=== PATIENT | female | born 2000 | race Caucasian/White ===

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

== ENCOUNTER 2022-03-24 00:30 | Observation (INO) | payer OTHER, SELFPAY ==
[2022-03-24 00:30] VITALS: BMI 35.5
[2022-03-24 01:00] VITALS: BP 141/91; PULSE 107
[2022-03-24 01:13] LABS: Appearance Urine Clear (Clear); Bilirubin Urine Negative (Negative); Blood Urine Negative (Negative); Color Urine Yellow (Yellow); Glucose Urine UA Negative (Negative); Ketones Urine Negative (Negative); Leukocyte Esterase Ur Trace LEU/UL (Negative); Nitrate Urine Negative (Negative); Protein Urine Negative (Negative); Urobilinogen Urine 0.2 mg/dL (<2.0); pH Urine 6.5 (5.0-9.0)
[2022-03-24 01:16] VITALS: BP 138/78; PULSE 109
[2022-03-24 01:28] LABS: Bacteria Urine Trace /hpf; Mucus Urine Rare /lpf; RBC Urine 0-2 /hpf (0-2); Squamous Epithelial Cell Urine Few /hpf (Few); WBC Urine 0-3 /hpf
[2022-03-24 01:30] VITALS: BP 118/74; PULSE 104
[2022-03-24 01:30] LABS: Add Urine Microscopic? YES
[2022-03-24 01:45] VITALS: BP 132/69; PULSE 101
[2022-03-24 02:01] VITALS: BP 131/96; PULSE 109
--- NOTE | 2022-03-27 07:15 | P.PNOB_ITS ---
OB - Triage/Final Diagnosis Visit Information Comments/Additional reasons for admission: I have assessed the risk for this patient, Caro Wilkes, and determined that she would benefit from observation care. Evaluation Laboratory results: Laboratory Tests 03/24/22 01:05 Urine Color Yellow Urine Appearance Clear Urine pH 6.5 Ur Specific [place] 1.020 Urine Protein Negative Urine Glucose (UA) Negative Urine Ketones Negative Ur Blood (Man) Negative Urine Nitrate Negative Urine Bilirubin Negative Urine Urobilinogen 0.2 Leukocyte Esterase Rfl Trace H Urine RBC 0-2 Urine WBC 0-3 Ur Squamous Epith Cells Few Urine Bacteria Trace Urine Mucus Rare Final Diagnosis (1) False labor: Code(s): O47.9 - False labor, unspecified Status: Acute
== END 2022-03-24 02:10 | disposition home or self-care (01) ==
PROVIDERS: Admitting Provider Obstetrics & Gynecology; Visit Provider Obstetrics & Gynecology
DX: O47.03 False labor before 37 completed weeks of gestation, third trimester (principal); Z3A.32 32 weeks gestation of pregnancy
CPT/HCPCS: 81001; G0378; G0379

== ENCOUNTER 2022-04-06 14:21 | Observation (INO) | payer OTHER, SELFPAY ==
[2022-04-06] VITALS (25 sets, daily range): BP systolic 116; BP diastolic 57; PULSE 139–161; TEMP 38.4; O2SAT 94–100; BMI 36.1
--- NOTE | 2022-04-06 15:25 | OBADM ---
This patient, Caro Wilkes, admitted to the OB room Labor/Delivery/Recovery 118 for observation. Patient/family oriented to hospital policies and general routines including ID bracelet, bed and alarms, visiting hours, pain management, procedures, bathroom and other care routines, personal items, smoking policy, room service/diet, and visiting hours. Patient/Family are encouraged to report perceived risks to care and to ask questions if they do not understand what they are told or what they should do.
[2022-04-06] MEDS: ACETAMINOPHEN 325 MG TABLET 650 MG PO (15:30)
--- NOTE | 2022-05-05 21:24 | PM.OBTRLD ---
OB - Triage/Final Diagnosis Visit Information Comments/Additional reasons for admission: I have assessed the risk for this patient, Caro Wilkes, and determined that she would benefit from observation care. Final Diagnosis (1) Fever: Code(s): R50.9 - Fever, unspecified Status: Acute
== END 2022-04-06 16:50 | disposition home or self-care (01) ==
PROVIDERS: Admitting Provider Obstetrics & Gynecology; Visit Provider Obstetrics & Gynecology
DX: O26.899 Other specified pregnancy related conditions, unspecified trimester (principal); R50.9 Fever, unspecified; Z3A.00 Weeks of gestation of pregnancy not specified
CPT/HCPCS: A9270; G0378; G0379

== ENCOUNTER 2022-04-24 11:32 | Outpatient (CLI) | payer OTHER, SELFPAY ==
--- NOTE | ~2022-04-24 | US_ITS ---
EXAMINATION: US OB BPP wo non-stress DATE: 04/24/2022 13:14 INDICATION: Hypertension TECHNIQUE: Real-time pelvic ultrasound was performed. The interpreting radiologist was not present fo r the study. COMPARISON: None. FINDINGS: There is a single living fetus in vertex presentation. The placenta is anterior. heart rate is 132 beats per minute (bpm). Biophysical profile performed by the technologist: breathing (30 sec sustained breathing in 30 minutes): 2 out of 2 movement (3 gross body movements in 30 minutes): 2 out of 2 tone (one episode of mywpecu-uxalbsyei-mcrzopn limb movement): 2 out of 2 Amniotic fluid pocket (2 cm): 2 out of 2 Total score: 8 out of 8 IMPRESSION: 1. Single living fetus in vertex presentation with heart rate of 132 bpm. 2. Biophysical profile 8 out of 8. Reviewed, dictated and finalized at location A. NT SUPPORT ADMINISTRATOR
[2022-04-24 12:07] VITALS: BP 132/80; PULSE 110
[2022-04-24 12:15] VITALS: BP 143/81; PULSE 99
[2022-04-24 12:17] VITALS: BP 132/80; PULSE 110
[2022-04-24 12:17] LABS: Basophils Percent Auto 0.3 % (0.2-1.2); Eosinophils Absolute Auto 0.2 K/mm3 (0-0.3); Hematocrit 32.8 % (37.0-47.0); Immature Granulocyte Absolute 0.08 K/mm3 (0.00-0.031); Immature Granulocyte Percent A 0.8 % (0-0.5); Lymphocytes Absolute Auto 2.04 K/mm3 (0.9-3.2); Lymphocytes Percent Auto 20.2 % (18.3-44.2); Mean Corpuscular HGB Conc 33.5 g/dl (32-36); Mean Corpuscular Hemoglobin 30.1 pg (26-34); Mean Corpuscular Volume 89.9 fl (80-100); Mean Platelet Volume 10.6 fl (7.4-10.4); Monocytes Absolute Auto 0.8 K/mm3 (0.1-0.6); Monocytes Percent Auto 8.1 % (2.6-8.5); Neutrophils Absolute Auto 6.9 K/mm3 (1.3-6.7); Neutrophils Percent Auto 68.6 % (45.5-73.1); Platelet Count Result 244 k/mm3 (150-375); Red Blood Count 3.65 M/mm3 (4.2-5.4); Red Cell Distribution Width 15.4 % (11.5-14.5); White Blood Count 10.1 K/mm3 (4.5-10.0)
[2022-04-24 12:30] VITALS: BP 127/75; PULSE 109
[2022-04-24 12:43] LABS: Alanine Aminotransferase 20 U/L (6-35); Albumin Level 3.7 g/dL (3.5-5.1); Alkaline Phosphatase 90 U/L (38-126); Anion Gap 6 mmol/L (8-16); Aspartate Amino Transferase 20 U/L (14-36); Bilirubin,Total 0.3 mg/dL (0.2-1.3); Blood Urea Nitrogen 6 mg/dL (7-17); Calcium 8.8 mg/dL (8.4-10.2); Carbon Dioxide 22 mmol/L (22-30); Chloride 107 mmol/L (98-107); Estimated Glomerular Filt Rate > 60; Glucose 115 mg/dL (65-110); Potassium 3.8 mmol/L (3.4-5.0); Sodium 135 mmol/L (137-145); Uric Acid 3.7 mg/dL (2.5-7.5)
[2022-04-24 12:53] LABS: Add Urine Microscopic? YES; Appearance Urine Slightly Cloudy (Clear); Bilirubin Urine Negative (Negative); Blood Urine Negative (Negative); Color Urine Light Yellow (Yellow); Glucose Urine UA Negative (Negative); Ketones Urine Negative (Negative); Leukocyte Esterase Ur 1+ LEU/UL (NEGATIVE); Nitrate Urine Negative (Negative); Protein Urine Trace mg/dL (Negative); Urobilinogen Urine 0.2 mg/dL (<2.0)
[2022-04-24 12:56] LABS: Creatinine Urine 94.2 mg/dL
[2022-04-24 13:15] VITALS: BP 127/75; PULSE 101
[2022-04-24 13:15] LABS: Total Protein Urine Random < 5 mg/dL; Ur Ttl Prot Creatinine Ratio < 0.05 mg/mg (0-0.20)
[2022-04-24 13:25] LABS: Bacteria Urine 1+ /hpf; Mucus Urine Rare /lpf; Squamous Epithelial Cell Urine Many /hpf (Few); WBC Urine 0-3 /hpf (0-3)
== END 2022-04-24 13:30 | disposition home or self-care (01) ==
LOC: ANHOBOP 11:37 → ANHOBPP 11:37
PROVIDERS: Visit Provider Obstetrics & Gynecology
DX: O13.9 Gestational [pregnancy-induced] hypertension without significant proteinuria, unspecified trimester (principal); Z3A.00 Weeks of gestation of pregnancy not specified
CPT/HCPCS: 36415; 59025; 76819; 80053; 81001; 82570; 84156; 84550; 85025; 87086; 99199

== ENCOUNTER 2022-04-27 17:42 | Outpatient (RCR) | payer OTHER, SELFPAY ==
[2022-03-30 13:33] VITALS: BP 125/74; PULSE 110
[2022-04-06 15:56] LABS: Influenza A QL RT-PCR Positive (Negative); Influenza B QL RT-PCR Negative (Negative); RSV RNA, RT-PCR Negative (Negative); SARS-CoV-2 RNA PCR Negative
[2022-04-14 17:51] VITALS: BP 130/72; PULSE 102
[2022-04-20 09:19] VITALS: BP 120/69; PULSE 91
== END 2022-05-31 12:48 | disposition home or self-care (01) ==
LOC: ANHOBOP 17:42
PROVIDERS: Visit Provider Advanced Practice Midwife
DX: O14.93 Unspecified pre-eclampsia, third trimester (principal); O26.613 Liver and biliary tract disorders in pregnancy, third trimester; K83.1 Obstruction of bile duct; Z3A.33 33 weeks gestation of pregnancy; Z3A.35 35 weeks gestation of pregnancy; Z3A.36 36 weeks gestation of pregnancy
CPT/HCPCS: 59025; 87637

== ENCOUNTER 2022-04-29 05:16 | Inpatient (IN) | payer OTHER, SELFPAY ==
[2022-04-29] VITALS (194 sets, daily range): BP systolic 65–165; BP diastolic 35–133; PULSE 25–261; RESP 16; TEMP 36.3–37.4; O2SAT 39–100; BMI 35.9
--- OUTSIDE RECORDS SUMMARY | 2022-04-29 05:21 | XMS_ITS ---
Care Plan - [facility] Created on: April 29, 2022 LEEANNE ONOFRE : 2000 Sex: Female Author Name [employer] Export Account Manager Address [address] [place] [address] Phone Organization [facility] Address [address] [place] [address] Phone Care Team Providers Care Chainstitch Pants Outseamer Name Role Phone NORIS LANDERS, DAVID Olmos Unavailable [phone] Primary Care Provider Unavail able
[2022-04-29 06:32] LABS: Basophils Percent Auto 0.4 % (0.2-1.2); Eosinophils Absolute Auto 0.4 K/mm3 (0-0.3); Hematocrit 32.6 % (37.0-47.0); Hemoglobin 10.8 g/dL (12.0-15.0); Immature Granulocyte Absolute 0.07 K/mm3 (0.00-0.031); Immature Granulocyte Percent A 0.7 % (0-0.5); Lymphocytes Absolute Auto 2.85 K/mm3 (0.9-3.2); Lymphocytes Percent Auto 28.9 % (18.3-44.2); Mean Corpuscular HGB Conc 33.1 g/dl (32-36); Mean Corpuscular Hemoglobin 30.1 pg (26-34); Mean Corpuscular Volume 90.8 fl (80-100); Mean Platelet Volume 10.8 fl (7.4-10.4); Monocytes Absolute Auto 0.8 K/mm3 (0.1-0.6); Monocytes Percent Auto 7.9 % (2.6-8.5); Neutrophils Absolute Auto 5.7 K/mm3 (1.3-6.7); Neutrophils Percent Auto 58.1 % (45.5-73.1); Platelet Count Result 207 k/mm3 (150-375); Red Blood Count 3.59 M/mm3 (4.2-5.4); Red Cell Distribution Width 15.6 % (11.5-14.5); White Blood Count 9.9 K/mm3 (4.5-10.0)
[2022-04-29] MEDS: LACTATED RINGERS 1,000 ML 125 ML IV CONT ×3 (06:47→14:29)
[2022-04-29] MEDS: OXYTOCIN 30 UNITS/NS 500 ML 30 UNITS/500 ML BAG IV CONT (06:48)
--- NOTE | 2022-04-29 06:56 | LDADM ---
This patient, Caro Wilkes, was admitted to Labor/Delivery/Recovery 103 on 04/29/22 at 05:16. Plans for labor, pain management and were discussed with patient. Patient/family oriented to hospital policies and general routines including ID bracelet, bed and alarms, visiting hours, pain management, procedures, bathroom and other care routines, personal items, smoking policy, room service/diet and guest tray routines, security routines, and visiting hours. Patient/Family are encouraged to report perceived risks to care and to ask questions if they do not understand what they are told or what they should do. See OBIX for further documentation.
--- NOTE | 2022-04-29 07:28 | WPDOBADMIT ---
Obstetrics - Admit Note Admission Note: record reviewed. No pertinent additions to the history and/or any subsequent changes in the physical findings that are not consistent with the expected course of the were found. IOL, cholestasis, SVE 2/80/-2 AROM minimal amount of clear odorless fluid. anticipate vaginal delivery Additions to the history and/or subsequent changes in the physical findings follow. None.
[2022-04-29 08:06] LABS: Rapid Plasma Reagin Non-Reactive (NonReactive)
[2022-04-29 10:17] LABS: Amphetamine Screen Urine Negative (Negative); Barbiturate Screen Urine Negative (Negative); Benzodiazepines Screen Urine Negative (Negative); Cannabinoid Screen Urine Negative (Negative); Cocaine Screen Urine Negative (Negative); Methadone Screen Urine Negative (Negative); Opiate Screen Urine Negative (Negative); Phencyclidine Screen Urine Negative (Negative)
--- NOTE | 2022-04-29 17:08 | WPDANESEPP ---
Anes - Eval Pre Procedure Procedure: Labor epidural Date/Time: 04/29/22 17:08 Surgeon: Naseem Preop Diagnosis: Abd pain with contractrions Pre Op Diagnosis: IOL Patient Data Age: 22 Gender: F Height: 1.6 m Weight: 92 kg Last Vital Signs Temp 98 F 04/29/22 15:06 Pulse 120 H 04/29/22 17:00 BP 108/75 04/29/22 17:00 Pulse Ox 99 04/29/22 17:08 O2 Del Method Room Air 04/29/22 06:54 Allergies Allergy/AdvReac Type Severity Reaction Status Date / Time No Known Allergies Allergy Verified 04/29/22 07:08 Home Medications Medication Instructions Recorded Confirmed Type aspirin 81 mg tablet,delayed 81 mg PO DAILY 12/22/21 04/29/22 History release (Adult Low Dose Aspirin) vitamin-ferrous fumarate 1 tablet PO DAILY 12/22/21 04/29/22 History 28 mg iron-folic acid 800 mcg tablet ( Vitamins with Minerals) ursodiol 300 mg capsule 300 mg PO DAILY 04/29/22 04/29/22 History Laboratory Tests 04/29/22 04/29/22 04/29/22 05:25 05:25 05:25 WBC 9.9 K/mm3 K/mm3 (4.5-10.0) RBC 3.59 M/mm3 L M/mm3 (4.2-5.4) Hgb 10.8 g/dL L g/dL (12.0-15.0) Hct 32.6 % L % (37.0-47.0) MCV 90.8 fl fl (80-100) MCH 30.1 pg pg (26-34) MCHC 33.1 g/dl g/dl (32-36) RDW 15.6 % H % (11.5-14.5) Plt Count 207 k/mm3 k/mm3 (150-375) MPV 10.8 fl H fl (7.4-10.4) Immature Gran % (Auto) 0.7 % H % (0-0.5) Neut % (Auto) 58.1 % % (45.5-73.1) Lymph % (Auto) 28.9 % % (18.3-44.2) [place] % (Auto) 7.9 % % (2.6-8.5) Eos % (Auto) 4.0 % % (0-4.4) Baso % (Auto) 0.4 % % (0.2-1.2) Lymph # (Auto) 2.85 K/mm3 K/mm3 (0.9-3.2) [place] # (Auto) 0.8 K/mm3 H K/mm3 (0.1-0.6) Eos # (Auto) 0.4 K/mm3 H K/mm3 (0-0.3) Baso # (Auto) 0.0 K/mm3 K/mm3 (0.0-0.1) Abs Immat Gran (auto) 0.07 K/mm3 H K/mm3 (0.00-0.031) Absolute Neuts (auto) 5.7 K/mm3 K/mm3 (1.3-6.7) Absolute Nucleated RBC 0.0 K/mm3 K/mm3 (0.0-0.012) Nucleated RBC % 0.0 % % (0.0-0.2) Urine Opiates Screen Urine Methadone Screen Ur Barbiturates Screen Ur Phencyclidine Scrn Ur Amphetamine Screen U Benzodiazepines Scrn Urine Cocaine Screen U Cannabinoids Screen RPR Non-reactive (NonReactive) Blood Type A Positive Antibody Screen Negative 04/29/22 09:53 WBC RBC Hgb Hct MCV MCH MCHC RDW Plt Count MPV Immature Gran % (Auto) Neut % (Auto) Lymph % (Auto) [place] % (Auto) Eos % (Auto) Baso % (Auto) Lymph # (Auto) [place] # (Auto) Eos # (Auto) Baso # (Auto) Abs Immat Gran (auto) Absolute Neuts (auto) Absolute Nucleated RBC Nucleated RBC % Urine Opiates Screen Negative (Negative) Urine Methadone Screen Negative (Negative) Ur Barbiturates Screen Negative (Negative) Ur Phencyclidine Scrn Negative (Negative) Ur Amphetamine Screen Negative (Negative) U Benzodiazepines Scrn Negative (Negative) Urine Cocaine Screen Negative (Negative) U Cannabinoids Screen Negative (Negative) RPR Blood Type Antibody Screen Patient hx anesthesia problems: none Family hx anesthesia problems: none Results Review: All pre-operative results and documents have been reviewed as part of the pre-operative evaluation. [facility] Past Medical History Medical History Acute depression Anxiety Asthma Morbid obesity PIH ( induced hypertension) Social History Social History (Reviewed 04/29/22 @ 17:10 by Mahendra
[2022-04-29] MEDS: CALCIUM CARBONATE (TUMS) 500 MG (200 MG ELEMENTAL) PO (20:15)
--- NOTE | 2022-04-29 22:21 | P.PCNOB_ITS ---
OB - Delivery Note Procedure Delivery date: 04/29/22 Procedure: vaginal delivery Events: Other (cholestasis) Induction method: AROM and Per Pitocin Protocol Delivery monitor: External FHT and Internal Uterine Route of delivery: Laceration Description: None Specimen: Yes Quantitative Blood Loss (ml): 100 Anesthesia type: Epidural Disposition: Floor [place] Baby Date of : 04/29/22 Time of : 22:06 Weeks of gestation at delivery: 37 gender: Male presentation: vertex position: Left Occiput Anterior Placenta delivery description: Spontaneous Cord Vessel Description: 3 Vessels and Around Body (x1) score one minute: 9 score five minutes: 9 Narrative: mother and baby skin to skin in stable condition
[2022-04-29] MEDS: OXYTOCIN 30 UNITS/NS 500 ML 30 UNITS/500 ML BAG 125 UNITS IV CONT (22:40)
[2022-04-30] VITALS (7 sets, daily range): BP systolic 111–134; BP diastolic 47–92; PULSE 92–111; RESP 16–20; TEMP 36.6–37.1; O2SAT 96–100
[2022-04-30] MEDS: WITCH HAZEL 40 PADS 1 PAD TOPICAL (00:06)
[2022-04-30] MEDS: BENZOCAINE 20% AER SPR (*SP) 56 GM CAN 1 SPRAY TOPICAL (00:06)
--- NOTE | 2022-04-30 00:36 | PC.NURSE ---
Report given to ROWENA Phillips
--- NOTE | 2022-04-30 00:41 | ADMGEN ---
This patient, Caro Wilkes, was admitted to OB 2nd Floor Room 281-00. Patient/family oriented to hospital policies and general routines including ID bracelet, bed and alarms, visiting hours, pain management, procedures, bathroom and other care routines, personal items, smoking policy, room service/diet, and visiting hours. Information on how to activate the Rapid Response Team has been discussed. Patient/Family are encouraged to report perceived risks to care and to ask questions if they do not understand what they are told or what they should do.
[2022-04-30] MEDS: ACETAMINOPHEN 325 MG TABLET 650 MG PO ×2 (02:00→12:23)
[2022-04-30] MEDS: LANOLIN (LANSINOH) 7.5 GM CREAM 1 APPLIC TOPICAL (02:19)
[2022-04-30 04:46] LABS: Hematocrit 28.7 % (37.0-47.0); Hemoglobin 9.4 g/dL (12.0-15.0)
[2022-04-30] MEDS: IBUPROFEN 600 MG TABLET PO ×2 (06:58→16:49)
--- NOTE | 2022-04-30 07:46 | PM.OBPNVD ---
OB - PN: Subj Subjective Date/time seen: 04/30/22 07:46 Patient comments: no complaints baby status: doing well OB - PN: Obj Data Labs 04/30/22 04:16 Labs: Laboratory Results - last 24 hr 04/29/22 04/29/22 04/30/22 05:25 09:53 04:16 Hgb 9.4 L Hct 28.7 L Urine Opiates Screen Negative Urine Methadone Screen Negative Ur Barbiturates Screen Negative Ur Phencyclidine Scrn Negative Ur Amphetamine Screen Negative U Benzodiazepines Scrn Negative Urine Cocaine Screen Negative U Cannabinoids Screen Negative RPR Non-reactive OB - PN A/P Plan day: 1 Plan: routine care Time Spent With Patient Time: Total time spent is greater than 50% in coordination of care (as documented) at patient's floor/unit and/or counseling patient: Time with patient: less than 15 minutes Review of Systems Review of Systems: All systems reviewed & are unremarkable except as noted in HPI and below Exam Narrative: Fundus firm and vaginal flow controlled. No lower ext redness, warmth, or edema. Negative homans. Const: General: comfortable Chest: Breast/axilla inspection: normal inspection of the breasts Resp: Effort & Inspection: normal respiratory effort Cardio: Rate: regular rate GI: GI Palp: Yes Soft to palpation Psych: Appearance: grossly normal Affect: normal affect Attitude: cooperative Thought content: Yes Normal thought content present Judgement: Good judgement present (Psych)
--- NOTE | 2022-04-30 07:56 | WPDANLDPN2 ---
Anes-Prog Note L&D Date/Time: 04/30/22 07:56 Comfortable throughout: labor and delivery Neuraxial method: epidural Epidural/Spinal procedure site: clean & non-tender Neuro status: Neuro function grossly intact. Cardiovascular status: normal Respiratory status: normal Airway patency: baseline Mental status: baseline Post-Op hydration status: normal Vital Signs: Last Vital Signs Temp 37.0 C 04/30/22 04:30 Pulse 94 04/30/22 04:30 Resp 18 04/30/22 04:30 BP 111/55 L 04/30/22 04:30 Pulse Ox 98 04/30/22 00:11 O2 Del Method Room Air 04/30/22 04:30 Pain score (VAS): 05/07 I/O: Intake & Output 04/29/22 04/29/22 04/30/22 15:59 23:59 07:59 Intake Total 1999 500 Output Total 100 168 Balance 1999 -100 332 Post-procedural complaints: none Patient feedback: Patient satisfied with anesthetic care.
--- NOTE | 2022-04-30 08:36 | PC.NURSE ---
[id number] Introductions were made, then consulted with patient to assess needs related to . Mother led the conversation with her?plans to feed?her infant and the?experience so far. Mother states she believes her makes a scour face and is spitting up because he doesn't like her milk . Reviewed EGA 37 weeks, gaggy/spitty baby behavior, sleepy and crying is typical for a . Mother states I tried to breastfeed with my first and it didn't work . Resources provided for inpatient and outpatient services using mom/baby guide. Mother voiced understanding of information and willing to receive assistance to stimulate infant. Mother works well with her with encouragement and education. Encouraged understanding of the benefits of skin to skin and unwrapped and placed him vertically on her chest after changing a wet diaper. Discussed stimulating with massage touch, changing positions, how to watch for early feeding signs, responsive feeding, frequency of feeding on demand about every 8-12 times in 24 hours (every 2-3 hours), milk production, duration of feeding, signs of adequate intake/output and how to record on the feeding sheet. is sleepy and reluctant. Mother states she has been hand expressing milk to the baby and asked about pumping. Reviewed the risks and benefits of pumping, then mother encouraged to notify her nurse if she should choose to pump versus breastfeed. Resources used to facilitate learning were used with the mom and baby guide. Mother voiced understanding of responsive feedings, stimulating with skin to skin, hand expressed colostrum, massage touch, talking to to encourage if it has been 2 -3 hours since the start of the last , to call if does not latch or there is discomfort with . Reported to the primary RN.
--- NOTE | 2022-04-30 10:14 | PC.NURSE ---
0945 went in to room to do pts morning assessment. She was sleeping. So this RN told the FOB to have her call out for me when she wakes up. I also have her AM meds to give her. He V/U'd.
[2022-04-30] MEDS: MULTIVIT/MIN/PREN/FOL AC/IRON TABLET 1 TAB PO (12:25)
[2022-04-30] MEDS: POLYSACCHARIDE IRON COMPLEX 150 MG CAPSULE PO ×2 (12:25→16:49)
--- NOTE | 2022-04-30 15:34 | PC.NURSE ---
[id number] Consulted with patient to assess needs related to . Mother led conversation with her experience with feeding baby so far and states latches, however, there is a small purple area on her left areola. Mother states doesn't open his mouth wide. Mother works well with her with encouragement and education. The couplet needs encouragement in learning new technique. Reviewed working with infant, breast, nipples and how to protect the nipples with an optimal deep latch, good positioning, and good hand washing. Encouraged understanding the benefits of skin to skin, responding to feeding cues, frequencies of feeding 8-12 times in 24 hours (approximately 2-3 hours), duration of feedings, milk production, intake/output feeding sheet and signs of adequate intake encouraging swallowing at the breast. Reviewed positioning and alignment, supporting breast, off-centered (asymmetrical latch) and leading with the chin with big, open, wide gape. Infant latched optimally to the right breast in football position for a few sucks but doesn't draw the breast into his mouth and maintain suction. Infant was not able to maintain latch for more than a few sucks. Infant lets go of the breast and holds the nipple in his mouth that is less than 90 degrees. Nipple care reviewed with optimal latch and good positioning, comfort, healing with warm, wet washcloth to rinse breast, then leave open to air-dry, colostrum may be left on nipples to dry but have clean hands when touching the nipple/breast as needed. After working with the dyad for 15 minutes mother asks if the infant has had enough so she can take a shower. Reviewed EGA infant of 37 weeks, poor latch, milk production and her plan to breastfeed. Mother decided to pump and work on later. Resources used to facilitate learning were used from the tool, mom and baby guide. Mother voiced understanding of the education shared, calling for assistance if the does not latch or if there is discomfort with . Reported to the primary RN. In the 1500 hour mother agreed to initiate pumping for milk production. Breast pump provided due to ineffective . Instructions given on cleaning, care, usage, that there should be no pain, pumping schedule for milk production, collection, and storage of human milk. Parents are encouraged to record pumping schedule on the feeding sheet. Patient was assessed for correct placement, flange size, to pump for comfort and nipple stretching/stimulation for adequate milk production every 3 hours (8 times in 24 hours) 1-2 times at night. Mother voiced understanding of the education shared along with mom and baby guide for additional resource information. Reported to the primary RN.
[2022-05-01] MEDS: ACETAMINOPHEN 325 MG TABLET 650 MG PO ×2 (06:02)
--- NOTE | 2022-05-01 07:39 | PM.OBPNVD ---
OB - PN: Subj Subjective Date/time seen: 05/01/22 07:39 s/p vaginal delivery day 2 OB - PN: Obj Data Labs 04/30/22 04:16 OB - PN A/P Plan day: 2 Plan: routine care and discharge home Time Spent With Patient Time: Total time spent is greater than 50% in coordination of care (as documented) at patient's floor/unit and/or counseling patient: Review of Systems Review of Systems: All systems reviewed & are unremarkable except as noted in HPI and below Exam Const: General: cooperative, healthy appearing and comfortable
--- NOTE | 2022-05-01 07:41 | P.DS_ITS ---
DS: Admitting Diagnosis Discharge Date 05/01/22 Admitting Diagnosis IOL, cholestasis DS: Discharge Diagnosis Discharge Diagnosis (1) Vaginal delivery: Code(s): O80 - Encounter for full-term uncomplicated delivery Status: Acute OB - DS: Summary OB Procedures : None OB Procedures Intrapartum: Spontaneous Vag Delivery OB Procedures: : None Time Spent with Patient Time attestation: Total time spent providing and/or coordinating discharge services: DS: Data Data Completed and Pending Pending studies at discharge: Pending at discharge 04/29/22 22:10 Surgical [PTH] Routine Discharge Plan Discharge Attending physician on discharge: Will Hinojosa Discharging Clinician: Pearl Baird Patient Disposition: Home, Self-Care Activity: pelvic rest Diet: regular Patient Instructions: Antibiotic Form Stand Alone Forms: General Discharge Information Follow-up/Referrals: Pearl Baird, CNM [Certified Nurse Finishing Machine Tender] - 4 Weeks Discharge Medications: New ibuprofen 600 mg Tablet 600 mg PO Q6H PRN (Reason: Cramping) Qty: 30 0RF Continued vit-iron fum-folic ac [ Vitamin with Minerals] 28 mg iron- 800 mcg Tablet 1 tablet PO DAILY ursodiol 300 mg capsule 300 mg PO DAILY Discontinued aspirin [Adult Low Dose Aspirin] 81 mg Tablet,Delayed Release (Dr/Ec) 81 mg PO DAILY Date of admission: 04/29/22 05:16 Primary Care Provider: PHYSICIAN,DISBURSING OFFICER Admitting Provider: Will Hinojosa Attending physician on admission: Will Hinojosa Condition: Stable
[2022-05-01 08:05] VITALS: BP 104/61; PULSE 81; RESP 16; TEMP 37.2; O2SAT 100
[2022-05-01] MEDS: IBUPROFEN 600 MG TABLET PO (09:56)
[2022-05-01] MEDS: POLYSACCHARIDE IRON COMPLEX 150 MG CAPSULE PO (09:57)
[2022-05-01] MEDS: MULTIVIT/MIN/PREN/FOL AC/IRON TABLET 1 TAB PO (09:57)
--- NOTE | 2022-05-01 10:00 | PC.NURSE ---
Patient viewed the discharge video Mother & Baby Care, The First Two Weeks . Patient was given the opportunity and encouraged to ask questions. Patient verbalized understanding of information shared and has been given the mother/baby guide for home reference.
--- NOTE | 2022-05-01 11:23 | PC.NURSE ---
Patient declined a consult today.
[2022-05-02 10:06] VITALS: BP 130/87; PULSE 94; RESP 20; TEMP 36.8; O2SAT 100
== END 2022-05-01 11:33 | disposition home or self-care (01) | DRG 560 ==
LOC: ANHLDR 05:19 → ANHOB2 04-30 01:08
PROVIDERS: Advanced Practice Midwife; Admitting Provider Obstetrics & Gynecology; Visit Provider Obstetrics & Gynecology
DX: O26.62 Liver and biliary tract disorders in childbirth (principal); K83.1 Obstruction of bile duct; O69.2XX0 Labor and delivery complicated by other cord entanglement, with compression, not applicable or unspecified; O76 Abnormality in fetal heart rate and rhythm complicating labor and delivery; Z3A.37 37 weeks gestation of pregnancy; Z37.0 Single live birth
CPT/HCPCS: 36415; 80307; 85014; 85018; 85025; 86592; 86850; 86900; 86901; 88307; A9270; J2590; J2795; J7120

== ENCOUNTER 2022-12-02 10:53 | Outpatient (CLI) | payer OTHER, SELFPAY ==
--- NOTE | ~2022-12-02 | US_ITS ---
Pelvic ultrasound. Clinical History: Pelvic pain Technique: Realtime transabdominal scanning of the pelvis was performed. Color flow Doppler and Doppl er spectral analysis were performed. Findings: The uterus is anteverted. The endometrial stripe is poorly delineated, but not grossly thi ckened. No focal mass is identified. The right ovary measures 3.1 x 2.0 2.1 cm. No significant right ovarian or adnexal mass is seen. The left ovary measures 3.1 x 2.0 x 2.0 cm. No significant left ovarian or adnexal mass is seen. There is no evidence of free fluid in the cul de sac. Impression: No significant abnormality seen. Reviewed, dictated and finalized at location . Impression: No significant abnormality seen.
== END 2022-12-02 10:54 | disposition home or self-care (01) ==
PROVIDERS: Visit Provider Advanced Practice Midwife
DX: R10.9 Unspecified abdominal pain (principal)
CPT/HCPCS: 76856

== ENCOUNTER 2024-08-30 15:36 | Outpatient (CLI) | payer OTHER, SELFPAY ==
--- OUTSIDE RECORDS SUMMARY | 2024-08-30 16:15 | XMS_ITS | Encounter Summary ---
Author Organization [facility] Address [address] [place] [address] Care Team Providers Care Marbleizing Machine Tender Name Role Phone Maria M Garza MD Unavailable [phone] Encounter Details Date Type Department Care Team (Late st Contact Info) Description 01/14/2019 Telephone [facility] Pediatrics - Neurology [address] [place] [id number] Uzma Ferro MD [address] [place] [id number] Social History Tobacco Use Types Packs/Day Years Used Date Smoking Tobacco: Never Assessed Comments No Sex and Gender Information Value Date Recorded Sex Assigned at Not on file Legal Sex Female 8:01 AM GUNNER'S MATE M Gender Identity Not on file Sexual Orientation Not on file documented as of this encounter Miscellaneous Notes * Telephone Encounter - Tima Gaytan - 01/14/2019 12:46 PM CDT Received referral from Dr Briggs for follow up w/stephen Aquino back documented in this encounter Plan of Treatment Not on file documented as of this encounter Visit Diagnoses Not on filedocumented in this encounter Care Teams Marbleizing Machine Tender Relationship Specialty Start Date End Date Maria M Garza MD [address] [place] [id number] Pediatrics 02/12/17 documented as of this encounter
--- OUTSIDE RECORDS SUMMARY | 2024-08-30 16:15 | XMS_ITS | Clinical Summary ---
Author Organization [facility] Address [address] [place] [address] Care Team Providers Care Hotel Maintenance Technician Name Role Phone Maria M Garza MD Unavailable [phone] Source Comments [facility],non-owned Affiliates and Associated Physician Practices is amultiple site organization consisting of ambulatory clinics and hospital sitesin [place], [place], [place] and [place]. This disclosure is being madepursuant to the Care Everywhere program and may not contain all information available regarding this patient. Last updated 18.[facility] Allergies No known active allergies Medications * Be aware that medications may not be up to date on this document. Alwaysverify current medications with the patient. raNITIdine (ZANTAC) 150 MG tablet Take 1 tablet by mouth 2 times daily 1 7 Active cetirizine (ZYRTEC) 10 MG tablet Take 10 mg by mouth once daily Active albuterol HFA (PROVENTIL;VENT ISREAL;PROAIR) 108 (90 BASE) MCG/ACT inhaler Inhale 2 puffs by mouth every 6 hours as needed Active albuterol (PROVENTIL;VENT ISREAL) (2.5 MG/3ML) 0.083% nebulizer solution Inhale by mouth 4 times daily as needed for Shortness of Breath or Wheezing Active Aspirin-Acetami nophen-Caffeine (EXCEDRIN PO) Take by mouth as needed Patient unsure of dose, states she takes excedrin extra strength as needed Active topiramate (TOPAMAX) 25 MG tabletIndicatio ns:Chronic daily headache Take 1 tablet by mouth at bedtime 30 tablet 5 7 Active Active Problems Problem Noted Date Diagnosed Date Abdominal pain 03/09/2018 Chronic daily headache 08/20/2016 Assessment & Plan (03/10/2017 12:24 PM REGISTRAR NURSES' REGISTRY): Headaches have improved and can further improve with improving lifestyle modifications particularly diet, physical activity etc. No changes to be made to medication regimen today. 1. Keep headache diary 2. Maintain active lifestyle - encourage regular physical activity. 3. Eat healthy diet, and do not skip meals. Eat breakfast regularly. 4. Drink plenty of water, and avoid caffeine regularly. 5. Sleep: 1. Maintain good sleep routine. 2. Avoid distractions at bedtime such as TV, computer. 3. Get at least 8-10 hours of sleep nightly 6. Do not use pain medication (such as Tylenol, Ibuprofen) more than 2-3 times/week in order to avoid medication overuse headaches 7. Use Excedrin for moderate-severe headaches only. 8. Continue with Topamax 25 mg at bedtime. Take regularly and as prescribed. 9. Schedule appointment to have vision reevaluation as eye strain can also cause headaches. 10. Call in the interim with update regarding headaches, or for concerns Assessment & Plan (09/02/2016 11:31 AM CDT): Chronic daily headaches (mixed migraines and tension headaches) worsened by several lifestyle issues such as diet, hydration.caffeine intake, sedentary lifestyle, medication (Excedrin) overuse. Normal neurological examination. 1. Keep headache diary 2. Maintain active lifestyle - refer to PT 3. Eat healthy diet, and do not skip meals - eat breakfast also regularly. 4. Drink plenty of water, and avoid caffeine regularly. Reduce daily caffeine intake. 5. Sleep: 1. Maintain good sleep routine. 2. Avoid distractions at bedtime such as TV, computer. 3. Get at least 8-10 hours of sleep nightly 6. Do not use pain medication (such as Tylenol, Ibuprofen, Excedrin) more than 2 times/week in order to avoid medication overuse headaches - use only for intense headaches. 7. Start Topamax 25 mg tabs - 1/2 tab at bedtime x 2 weeks, then increase to 1 tab at bedtime. Take regularly and as prescribed. 8. Call in 4-6 weeks with update regarding headaches, sooner for concerns Blurred vision, bilateral 08/20/2016 Dizziness 08/20/2016 Assessment & Plan (09/02/2016 11:35 AM CDT): Dizziness symptoms related to hydration, caffeine intake, adolescent growth rate, sedentary lifestyle etc. 1. Aggressive hydration as discussed - improve water intake 2. Reduce daily caffeine intake 3. Refer to PT for improving physical tolerability 4. Increase salt intake 5. Check orthostatics in the office today 6. Call in 4 weeks with updates, sooner for concerns. Family History Medical History Relation Name Comments Other Maternal Aunt Scarlet fever Other Maternal Uncle Scarlet fever Myopia Paternal Grandmother High Rx Amblyopia Neg Hx Anesthesia Reaction Neg Hx Migraine Neg Hx Strabismus Neg Hx Relation Name Status Comments Maternal Aunt Maternal Uncle Paternal Grandmother Social History Tobacco Use Types Packs/Day Years Used Date Smoking Tobacco: Never Assessed Comments No Sex and Gender Information Value Date Recorded Sex Assigned at Not on file Legal Sex Female 8:01 AM REGISTRAR NURSES' REGISTRY Gender Identity Not on file Sexual Orientation Not on file Last Filed Vital Signs Vital Sign Reading Time Taken Comments Blood Pressure 110/68 01/15/2018 8:12 AM CDT per pcp Pulse 84 01/15/2018 8:12 AM CDT per p cp Temperature 36.6 C (97.8 F) 01/15/2018 8:12 AM CDT per pcp Respiratory Rate 20 01/15/2018 8:12 AM CDT p er pcp Oxygen Saturation - - Inhaled Oxygen Concentration - - Weight 53.5 kg (118 lb) 01/15/2018 8:12 AM CDT p er pcp Height 162.6 cm (5' 4 ) 01/15/2018 8:12 AM CDT p er pcp Body Mass Index 20.25 01/15/2018 8:12 AM CDT Plan of Treatment Health Maintenance Due Date Last Done Comments PAP SMEAR 2002 HIV SCREENING 2017 HPV VACCINE (1 - 3-dose series) 2017 CHLAMYDIA/GONORRHEA SCREENING 2018 MENINGOCOCCAL (Group B) VACC INE SHARED DECISION-MAKING (1 of 2 - Standard) 2018 HEPATITIS C SCREENING 03/10/2020 DTAP/TDAP/TD VACCINES (1 - Tdap) 2021 HEPATITIS B VACCINE (1 of 3 - 19+ 3-dose series) 2021 COVID-19 VACCINE (1 - 2023-2 5 season) 2023 DEPRESSION SCREENING 04/28/2024 INFLUENZA VACCINE (Season Ended) 2024 ZOSTER VACCINE (1 of 2) 2052 HIB VACCINE Aged Out No longer eligi ble based on patient's age to complete this topic MENINGOCOCCAL GROUPS A/C/Y/W VACCINE Aged Out No longer eligible b ased on patient's age to complete this topic PNEUMOCOCCAL VACCINE Aged Out No long er eligible based on patient's age to complete this topic Insurance [place] [address] Care Teams Hotel Maintenance Technician Relationship Specialty Start Date End Date Marai M Garza MD [address] [place] [address] Pediatrics 02/12/17
--- OUTSIDE RECORDS SUMMARY | 2024-08-30 16:15 | XMS_ITS | Encounter Summary ---
Author Organization [facility] Address [address] [place] [address] Phone Care Team Providers Care Media Liaison Officer Name Role Phone An Ace Primary Care Provider + Shilpi Fatima APRN, RESIDENTIAL SUBSTANCE ABUSE COUNSELOR Unavailable Reji Deal MD Unavailable Abimael Grimes MD Unavailable Encounter Details Date Type Department Care Team (Late st Contact Info) Description 03/03/2024 [facility] [address] [place] [address] Alessandra Helm V, EXTRACTOR LOADER AND UNLOADER, RESIDENTIAL SUBSTANCE ABUSE COUNSELOR [address] [facility] [address] [place] [address] Encounter for supervision of normal , antepartum, unspecified (Primary Dx) Social History Tobacco Use Types Packs/Day Years Used Date Smoking Tobacco: Never Smokeless Tobacco: Never Alcohol Use Standard Drinks/Week Comments Never 0 (1 standard drink = 0.6 oz pur e alcohol) [facility] Utilities Answer Date Recorded In the past 12 months has [employer], oil, or water [employer] threatened to shut off services in your home? Patient declined 01/02/2024 Social Connection and Isolat ion Panel [NHANES] Answer Date Recorded In a typical week, how many times do you talk on the phone with family, friends, or neighbors? More than three times a week 10/22/2023 How often do you get togethe r with friends or relatives? Once a week 10/22/2023 How often do you attend chur or anabaptism services? Patient declined 10/22/2023 Do you belong to any clubs o r organizations such as restorationist groups, unions, fraternal or athletic groups, or school groups? No 10/22/2023 How often do you attend meet ings of the clubs or organizations you belong to? Never 10/22/2023 Are you , , di vorced, , never , or living with a partner? Never 10/22/2023 AUDIT-C Answer Date Recorded Q1: How often do you have a drink containing alcohol? Never 10/22/2023 Q2: How many drinks containi ng alcohol do you have on a typical day when you are drinking? Patient does not drink Q3: How often do you have si x or more drinks on one occasion? Never 10/22/2023 Overall Financial Resource Strain (CARDIA) Answe r Date Recorded How hard is it for you to pa y for the very basics like food, housing, medical care, and heating? Somewhat hard 10/22/2023 [facility] - Occupational Stress Questionnaire Answer Date Recorded Do you feel stress - tense, restless, nervous, or anxious, or unable to sleep at night because your mind is troubled all the time - these days? Only a little 10/22/2023 Exercise Vital Sign Answer Date Recorde d On average, how many days pe r week do you engage in moderate to strenuous exercise (like a brisk walk)? 7 days 10/22/2023 On average, how many minutes do you engage in exercise at this level? 60 min 10/22/2023 Hunger Vital Sign Answer Date Recorded Within the past 12 months, y ou worried that your food would run out before you got the money to buy more. Patient declined Within the past 12 months, t he food you bought just didn't last and you didn't have money to get more. Patient declined 09/2023 PRAPARE - Transportation Answer Date Re corded In the past 12 months, has l ack of transportation kept you from medical appointments or from getting medications? Patient declined 01/02/2024 In the past 12 months, has l ack of transportation kept you from meetings, work, or from getting things needed for daily living? Patient declined 01/02/2024 Housing Stability Vital Sign Answer Ld e Recorded In the last 12 months, was t here a time when you were not able to pay the mortgage or rent on time? Patient declined 01/02/20 24 In the past 12 months, how m any times have you moved where you were living? 0 01/02/2024 At any time in the past 12 m [facility], were you homeless or living in a chcf (including now)? Patient declined 01/02/2024 Comments Yes Sex and Gender Information Value Date Recorded Sex Assigned at Not on file Legal Sex Female 11:31 PM CDT Gender Identity Not on file Sexual Orientation Not on file documented as of this encounter Plan of Treatment Not on file documented as of this encounter Results * (ABNORMAL) HCG BETA SUBUNIT SERUM QUANT (03/19/2024 3:18 PM LEGAL TECHNICIAN) HCG BETA SUBUNIT, QUANT [id number] (H) 0.00 - 5.00 mIU/mL 03/19/2024 5:50 PM LEGAL TECHNICIAN [facility] Blood Venipuncture / Unknown 03/19/2024 3:18 PM LEGAL TECHNICIAN 03/19/2024 5:03 PM LEGAL TECHNICIAN Narrative [facility] - 03/19/2024 5:50 PM LEGAL TECHNICIAN HCG levels should be interpreted with consideration given to the patient's clinical condition. No currently available hCG test is approved by the FDA for use as a tumor marker. hCG results <5 mIU/mL are considered negative. Weeks post LMP hCG range (mIU/mL) 1 - 10 202 - 231,000 11 - 15 22,536 - 234,990 16 - 22 8,007 - 50,064 23 - 40 1,600 - 49,413 The concentration of hCG in maternal serum rises rapidly in early , hCG levels less than 25 mIU/mL do not exclude . A further sample should be tested after 48 hours if is suspected. Heterophilic antibodies present in the serum of some patients may cause a false positive result in the assay. Before making a diagnosis of malignancy based on elevated hCG, confirm results with a urine hCG. Alessandra Gabriel APRN, CNP CHEMISTRY ORDERABLES Final Result [facility] [address] [place] [address] documented in this encounter Visit Diagnoses Diagnosis Encounter for supervision of normal , antepartum, unspecified - Primary documented in this encounter Care Teams Media Liaison Officer Relationship Specialty Start Date End Date An Ace PAC [address] [place] [address] PCP - General Physician Medical Field Representative 01/16/23 Shilpi Fatima APRN, ELOISA [address] [place] [address] Nurse Practitioner Advanced Practice Nurse 02/13/23 Reji Deal MD [address] [place] [address] Consulting Physician Neurology 07/18/23 Abimael Grimes MD [address] [address] Consulting Physician General Surgery 12/12/23 documented as of this encounter
--- OUTSIDE RECORDS SUMMARY | 2024-08-30 16:15 | XMS_ITS | Referral Summary ---
Author Organization [facility] Address [address] [place] [address] Care Team Providers Care Sewing Machine Repairer Helper Name Role Phone Elliot Ha MD Primary Care Provider Allergies No known active allergies Medications multivitamin with iron tablet Take 1 tablet by mouth daily Active ondansetron ODT (ZOFRAN-ODT) 4 mg disintegrating tablet Dissolve 1 tablet oral every 4 hours as needed for nausea or vomiting. 15 tablet 09/10/19 21 Active Additional Information Patient not taking.Reported on 02/07/2021 triamcinolone (NASACORT) 55 mcg nasal inhalerIndications :Seasonal allergic rhinitis due to pollen Administer 2 sprays into each nostril daily 1 g 11 02/08/20 21 Active medroxyPROGESTERon e (PROVERA) 5 mg tabletIndications: Abnormal Uterine Bleeding due to Hormonal Imbalance Take 1 tablet (5 mg total) by mouth daily 5 tablet 04/23/20 21 Active metoclopramide (REGLAN) 10 mg tabletIndications: gastroesophageal reflux disease,nausea from hormone med Take 0.5 tablets (5 mg total) by mouth every 6 (six) hours 15 tablet 04/23/20 21 Active LORazepam (ATIVAN) 0.5 mg tablet Take 1 tablet (0.5 mg total) by mouth every 8 (eight) hours as needed for anxiety (or sleep) 15 tablet 04/23/20 21 Active lidocaine (LIDODERM) 5 % Place 1 patch on the skin daily as needed for pain Remove & discard patch within 12 hours or as directed by . 5 patch 10/24/19 24 Active HYDROcodone-acetam inophen (NORCO) 5-325 mg per tabletIndications: Pain Take 1 tablet by mouth every 6 (six) hours as needed for pain 12 tablet 10/24/19 24 Active ibuprofen (ADVIL,MOTRIN) 600 mg tablet Take 1 tablet (600 mg total) by mouth every 6 (six) hours as needed for pain 20 tablet 10/24/19 24 Active Active Problems Problem Noted Date Diagnosed Date Seasonal allergic rhinitis due to pollen 021 Assessment & Plan (02/07/2021 3:44 PM CDT): Consider for Topical Nasal steroids 2 sprays into each nostril while looking down over the sink, do not sniff in or blow nose after use for at least 30 minutes Referred otalgia of both ears 02/07/2021 Assessment & Plan (02/07/2021 3:44 PM CDT): Have Dental Evaluation Dental contact information provided Acute maxillary sinusitis 12/22/2018 Abdominal pain 03/09/2018 Closed head injury 06/17/2017 Blurred vision, bilateral 08/20/2016 Dizziness 08/20/2016 Overview (04/23/2021): Last Assessment & Plan: Dizziness symptoms related to hydration, caffeine intake, adolescent growth rate, sedentary lifestyle etc. 1. Aggressive hydration as discussed - improve water intake 2. Reduce daily caffeine intake 3. Refer to PT for improving physical tolerability 4. Increase salt intake 5. Check orthostatics in the office today 6. Call in 4 weeks with updates, sooner for concerns. Chronic daily headache 08/20/2016 Overview (04/23/2021): Last Assessment & Plan: Headaches have improved and can further improve [...] with update regarding headaches, or for concerns Immunizations Immunization Administration Dates Next Due Influenza, Unspecified 03/17/2019 MMR 08/28/2019(Deferred: Other - Not needed.) Social History Tobacco Use Types Packs/Day Years Used Date Smoking Tobacco: Never Smokeless Tobacco: Never Alcohol Use Standard Drinks/Week Comments Never 0 (1 standard drink = 0.6 oz pur e alcohol) AUDIT-C Answer Date Recorded Frequency of Alcohol Consumption Never 10/04/2018 Average Number of Drinks Not on file 019 Frequency of Binge Drinking Not on file 12/2018 Personal Safety Answer Date Recorded Have you ever been in or are you currently in a harmful physical or emotional relationship or is someone making you feel afraid or unsafe? Denies 10/24/2023 Comments Unknown Sex and Gender Information Value Date Recorded Sex Assigned at Not on file Legal Sex Female 10:47 AM PERSONAL DEVELOPMENT MENTOR Gender Identity Not on file Sexual Orientation Not on file Last Filed Vital Signs Vital Sign Reading Time Taken Comments Blood Pressure 130/77 10/24/2023 6:00 PM CDT Pulse 95 10/24/2023 6:00 PM CDT Temperature 36.8 C (98.3 F) 10/24/2023 1:18 PM CDT Respiratory Rate 17 10/24/2023 6:00 PM CDT Oxygen Saturation 98% 10/24/2023 6:00 PM CDT Inhaled Oxygen Concentration - - Weight 68 kg (150 lb) 10/20/2023 10:50 AM CDT Height 160 cm (5' 2.99 ) 10/20/2023 10:50 AM CDT Body Mass Index 26.58 10/20/2023 10:50 AM CDT Plan of Treatment Not on file Insurance [place] [address] [facility] [place] [address] [facility] Advance Directives For more information, please contact: [phone] * Full Code (Latest Code Status on File) Date Activated Date Inactivated Comments 08/24/2019 7:48 PM 08/28/2019 8:52 PM Full CPR in c ase of cardiopulmonary arrest Care Teams Sewing Machine Repairer Helper Relationship Specialty Start Date End Date Elliot Ha MD [address] [place] [address] [address] PCP - General Obstetrics and Gynecology 11/09/21
--- OUTSIDE RECORDS SUMMARY | 2024-08-30 16:15 | XMS_ITS | Encounter Summary ---
Author Organization [facility] Address [address] [place] [address] Phone Care Team Providers Care Carton Marker Machine Name Role Phone An Ace PAC Primary Care Provider + Shilpi Fatima APRN, STOPPER SETTER Unavailable Reji Deal MD Unavailable Abimael Grimes MD Unavailable [phone] Encounter Details Date Type Department Care Team (Late st Contact Info) Description 04/19/2024 Telephone [facility] [address] [place] [address] An Ace, PAC [address] [place] [address] Social History Tobacco Use Types Packs/Day Years Used Date Smoking Tobacco: Never Smokeless Tobacco: Never Alcohol Use Standard Drinks/Week Comments Never 0 (1 standard drink = 0.6 oz pur e alcohol) [facility] Utilities Answer Date Recorded In the past 12 months has e electric, gas, oil, or water company threatened to shut off services in your [...] 10/22/2023 How often do you attend chur ch or alevism services? Patient declined 10/22/2023 Do you belong to any clubs o r organizations such as christian groups, unions, fraternal or athletic groups, or [...] medical care, and heating? Somewhat hard 10/22/2023 [facility] - Occupational Stress [...] any time in the past 12 m [facility], were you homeless or living in a longterm (including now)? Patient declined 01/02/2024 Comments Yes Sex and Gender Information Value Date Recorded Sex Assigned at Not on file Legal Sex Female 11:31 PM CDT Gender Identity Not on file Sexual Orientation Not on file documented as of this encounter Plan of Treatment Not on file documented as of this encounter Visit Diagnoses Not on filedocumented in this encounter Care Teams Carton Marker Machine Relationship Specialty Start Date End Date An Ace PAC [address] [place] [address] PCP - General Physician Bundler Seasonal Greenery 01/16/23 Shilpi Fatima APRN, STOPPER SETTER [address] [place] [address] Nurse Practitioner Advanced Practice Nurse 02/13/23 Reji Deal MD [address] [place] [address] Consulting Physician Neurology 07/18/23 Abimael Grimes MD [address] [id number] Consulting Physician General Surgery 12/12/23 documented as of this encounter
--- OUTSIDE RECORDS SUMMARY | 2024-08-30 16:15 | XMS_ITS | Clinical Summary ---
Author Organization [facility] Address [address] [place] [address] Care Team Providers Care Intelligence Director Name Role Phone Elliot Ha MD Primary [...] 03/17/2019 MMR 08/28/2019(Deferred: Other - Not needed.) Surgical History Surgery Date Site/Laterality Comments TONSILECTOMY, ADENOIDECTOMY, BILATERAL MYRINGOTOMY AND TUBES Medical History Medical History Date Comments Asthma last used an inh aler a couple months ago Family History Medical History Relation Name Comments Diabetes Father Diabetes Maternal Grandfather Diabetes Maternal Grandmother Diabetes Paternal Grandfather Diabetes Paternal Grandmother Relation Name Status Comments Father Maternal Grandfather Maternal Grandmother Paternal Grandfather Paternal Grandmother Social History Tobacco Use Types [...] on file Legal 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 Gender Identity Not on file Sexual Orientation Not on file Obstetrics History Para Term AB IAB SAB Ectopic Multiple Livin g Live Births 2 1 1 0 1 1 Date Outcome GA Total Labor Labor/2nd/3rd Weight Sex Type Anes PTL Myla A1 A5 Name Clin 2019 Term 40w 1d 4h 18m 2h 55m/1h 19m/0h 04m 3.1 kg (6 lb 13.4 oz) F Vag-S pont Epidur al N Livin g 8 9 ROMAI N,GIR LSHEL BY Pedro boswell, María Childers MD Complications:None Delivery Location:This Facil [facility]y ([facility]) Last Filed Vital Signs Vital Sign Reading [...] 10/20/2023 10:50 AM CDT Plan of Treatment Health Maintenance Due Date Last Done Comments Cervical Cancer Screening 2002 Chlamydia and Gonorrhea (GC/ CT) Screening 2002 Depression Screening 2002 Hepatitis C Screening 2002 Pneumococcal vaccine <65 (1 of 1 - PPSV23) 2008 04/26/2004, 2002, 2002, Additional history exists Meningococcal B Vaccine (1 o f 2 - Standard) 2018 Regular Well Visit/Exam 18-64 2020 Influenza Vaccine (#1) 2023 9, 03/24/2017, 05/22/2016, Additional history exists DTaP/Tdap/Td Vaccine (8 - Td or Tdap) 05/26/2029 05/26/2019, 07/07/2012, 11/04/2006, Additional history exists Hepatitis B Screening Completed 2002 , 2002, 2002 Varicella Vaccines Completed 11/04/2006, 03/22/2003 HPV Vaccines Completed 05/31/2014, 07/2013, 10/20/[id number] [facility] [address] Advance Directives For more information, please contact: [phone] * Full Code (Latest Code Status on File) Date Activated Date Inactivated Comments 08/24/2019 7:48 PM 08/28/2019 8:52 PM Full CPR in c ase of cardiopulmonary arrest Care Teams Intelligence Director Relationship Specialty Start Date End Date Elliot Ha MD [address] [place] [address] DR MCCLENDON B [facility] [address] [place] [address] PCP - General Obstetrics and Gynecology 11/09/21
--- OUTSIDE RECORDS SUMMARY | 2024-08-30 16:15 | XMS_ITS | Data Portability ---
Author Organization [facility] [place] Address [address] [place] [address] [place] [address] Assessment Encounter Date Assessment Date Assessment LastModified by Organization Details LastModified Time 08/06/2024 08/06/2024 Patient is 29___weeks . Discussed plan. Not available 08/06/2024 13:43:37 08/27/2024 08/27/2024 Patient is __32_weeks . Discussed plan. Not available 08/27/2024 12:12:15 Plan of Treatment Reminders Order Date Submit Date Provider Last Modified By Organization Details Last Modified Time Details Appointments OB ROUTINE 2024 10:30A M Pearl Baird CNM Not available Not available Not available U/S OB GROWTH 2024 10:00A M ULTRASOUND Not available Not available Not available OB ROUTINE 2024 11:00A M Pearl Baird CNM Not available Not available Not available Lab None recorde d. Referral None recorde d. Procedures None recorde d. Surgeries None recorde d. Imaging US, obstetr ic, follow- up 2024 025 [email or web address] [place], [place], [address], 08/30/2024 08:09:45 US, obstetr ic, follow- up 2024 025 [email or web address] [place], [address], [place], [address], 08/06/2024 17:32:39 US, obstetr ic, follow- up 2024 025 [email or web address] [place], [address], [address], [place], [address], 07/10/2024 10:55:25 Medication Orders None recorde d. Patient TargetsNo targets recorded. Patient InstructionsNo instructions recorded. Reason for Referral None Reported. Results Created Date Observation Date Name Description Value Unit Range Abnormal Flag Note LastModifiedBy Organization Detail LastModifiedTime 08/07/1908/06/2024 HEMAT OCRIT (HCT) HCT 34.1 % (based on docume nted legal sex) 34.0-4 5.0 Not Available [facility] (Lab) [address], [place], [address], 08/07/2024 11:56:01 08/07/19 25 08/06/2024 HEMOG LOBIN (HGB) HGB 11.6 g/dL (based on docume nted legal sex) 11.6-1 5.4 Not Available [facility] (Lab) [address], [place], [address], 08/07/2024 11:56:01 08/07/19 25 08/06/2024 GTT - GESTA JAZMINE L SCREE N, ACOG OB glucose, 1 hour screen 62 mg/dL 70-135 low Not Available [facility] (Lab) [address] [place], [address], 08/07/2024 11:56:02 08/07/19 25 08/06/2024 HIV 1/2 ANTIG EN/AN TIBOD Y, REFLE X CONFI RMATI ON HIV antigen/anti body Nonrea ctive nonrea ctive HIV-1 antig en and HIV-1 /HIV- 2 antib odies were not detec ann. No labor atory evide nce of HIV infec tion. Not Available [facility] (Lab) [address] [place], [address], 08/07/2024 11:56:02 08/07/19 25 08/06/2024 RPR SCREE N, REFLE X TITER /CONF IRMAT ION RPR qualitative Nonrea ctive nonrea ctive Not Available [facility] (Lab) [address], [place], [address], 08/07/2024 11:56:02 06/11/19 25 06/11/2024 US, obste tric, 2nd or 3rd trime ster No observ ation record ed. [facility] [address], [place], [address], 06/11/2024 17:10:08 06/11/19 25 06/11/2024 US, obste tric, follo w-up No observ ation record ed. [email or web address] [address] [address], [place], [address], 06/14/2024 10:05:02 07/10/19 25 07/09/2024 US, obste tric, follo w-up No observ ation record ed. [email or web address] [address] [address], [place], [address], 07/13/2024 18:32:25 07/10/19 25 07/09/2024 US, obste tric, follo w-up No observ ation record ed. [facility] [address], [place], [address], 07/09/2024 17:34:23 08/07/19 25 08/06/2024 US, obste tric, follo w-up No observ ation record ed. [facility] [address], [place], [address], 08/06/2024 16:56:18 08/07/19 25 08/06/2024 US, obste tric, follo w-up No observ ation record ed. [email or web address] [address], [place], [address], 08/10/2024 11:58:02 08/28/19 25 08/27/2024 US, obste tric, follo w-up No observ ation record ed. [email or web address] [place] [address], [place], [address], 08/27/2024 17:24:54 08/28/19 25 08/27/2024 US, obste tric, follo w-up No observ ation record ed. [email or web address] [address], [place], [address], 08/28/2024 23:28:17 Result Notes None recorded. Problems Name Problem SNOMED Code Status Onset Date Resolution Date Notes Provider Name and Address Organization Details Recorded Time Past pregnanc y history of pre-ecla mpsia 7741120614 Active Pearl Baird CNM [address], [place], [address], [facility] 5 15:18:04 Past pregnanc y history of pre-ecla mpsia 5288308323 97002 Completed ASA, baseline pIH labs Krista Treadwell [facility], [facility] 3 16:50:12 Marijuan a user [id number] Completed encourag ed cessatio n Krista griffiths, [facility] 3 16:50:12 Cholesta sis 45731322 Completed Ursodiol 300mg BID, antenata l testing (pt declined 2x/wk), 37 wk delivery . Krista griffiths, [facility] 3 16:50:12 Pregnanc y 83165075 Active 2023 Paula griffiths, [facility] 4 12:45:34 Past pregnanc y history of pre-ecla mpsia 5826684086 Active Pearl Baird CNM [address], [place], [address], [facility] 5 15:18:03 Past pregnanc y history of cholesta sis in pregnanc y 7189020240 6189778 Active Pearl Baird CNM [address], [place], [address], [facility] 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 5 18:31:53 Problem Notes None recorded. Procedures Surgical History Date Name Laterality Status Provider Name and Address Organization Details Recorded Time 8 Tonsillectomy completed Pam Mandujano [facility] 11/17/2021 10:53:53 Imaging Results Imaging Date Name Status LastModified by Organiz ation Details LastModified Time 06/11/2024 US, obstetric, 2nd or 3rd trimester completed [facility] [address], [place], [address], 06/11/2024 17:10:08 06/11/2024 US, obstetric, follow-up completed [email or web address] [address], [place], [address], 06/14/2024 10:05:02 07/09/2024 US, obstetric, follow-up completed [email or web address] [address], [place], [address], 07/13/2024 18:32:25 07/09/2024 [facility], [facility] [address] [place], [address], 07/09/2024 17:34:23 08/06/2024 US, obstetric, follow-up completed [email or web address] [place], [place], [address], 08/06/2024 16:56:18 08/06/2024 US, obstetric, follow-up completed [email or web address] [address], [place], [address], 08/10/2024 11:58:02 08/27/2024 US, obstetric, follow-up completed [facility] [address], [place], [address], 08/27/2024 17:24:54 08/27/2024 US, obstetric, follow-up active [email or web address] [address], [place], [address], 08/28/2024 23:28:17 Procedure Notes None recorded. Medical Equipment None Reported. Allergies No known drug allergies Medications Name Sig Start Date Stop Date Status Note LastModified by Organization Details LastModified Time tizanidine 4 mg tablet TAKE 1 TABLET BY MOUTH EVERY 6 HOURS NEEDED FOR MUSCLE SPASMS. 04/08 completed Not Available Not Available Not Available hydrocodone 5 mg-acetamin ophen 325 mg tablet TAKE 1-2 TABLETS BY MOUTH EVERY 8 HOURS NEEDED FOR MODERATE OR MORE SEVERE PAIN. 04/08 completed Not Available Not Available Not Available ondansetron HCl 4 mg tablet TAKE 1 TABLET BY MOUTH EVERY 8 HOURS NEEDED FOR NAUSEA FIRST LINE 04/08 completed Not Available Not Available Not Available prednisone 20 mg tablet PLEASE SEE ATTACHED FOR DETAILED DIRECTION S 04/08 completed Not Available Not Available Not Available metronidazo le 500 mg tablet TAKE 1 TABLET BY MOUTH THREE TIMES A DAY FOR 7 DAYS 04/08 completed Not Available Not Available Not Available aspirin 81 mg tablet,sagar yed release TAKE 1 TABLET BY MOUTH EVERY DAY 05/29 completed Not Available Not Available Not Available tramadol 50 mg tablet TAKE 1-2 TABLETS BY MOUTH EVERY 6 HOURS NEEDED FOR SEVERE PAIN 04/08 completed Not Available Not Available Not Available triamcinolo ne acetonide 0.1 % topical cream 04/08 completed Not Available Not Available Not Available ketorolac 10 mg tablet TAKE 1 TABLET BY MOUTH EVERY 4 HOURS NEEDED FOR MODERATE OR MORE SEVERE PAIN 04/08 completed Not Available Not Available Not Available famotidine 20 mg tablet TAKE 1 TABLET BY MOUTH 2 TIMES DAILY FOR 90 DAYS. 04/08 completed Not Available Not Available Not Available lorazepam 0.5 mg tablet TAKE 1 TABLET BY MOUTH EVERY 8 HOURS NEEDED FOR ANXIETY OR SLEEP 11/09 completed Not Available Not Available Not Available cephalexin 500 mg capsule TAKE 1 CAPSULE BY MOUTH THREE TIMES A DAY FOR 7 DAYS 04/08 completed Not Available Not Available Not Available lidocaine 5 % topical patch 04/08 completed Not Available Not Available Not Available ursodiol 300 mg capsule Take 1 capsule twice a day by oral route. 05/29 completed Not Available Not Available Not Available Advair Diskus 250 mcg-50 mcg/dose powder for inhalation TAKE 1 PUFF BY INHALATIO N IN THE MORNING AND AT BEDTIME. 02/28 completed Not Available Not Available Not Available ibuprofen 600 mg tablet TAKE 1 TABLET BY MOUTH EVERY 6 HOURS NEEDED FOR PAIN 04/08 completed Not Available Not Available Not Available albuterol sulfate HFA 90 mcg/actuati on aerosol inhaler TAKE 2 PUFFS BY INHALATIO N EVERY 4 HOURS NEEDED FOR WHEEZING OR COUGH (SHORTNES S OF BREATH). 04/08 completed Not Available Not Available Not Available medroxyprog esterone 150 mg/mL intramuscul ar suspension Inject 1 mL every 3 months by intramusc ular route. 11/13 completed Not Available Not Available Not Available dicyclomine 10 mg capsule TAKE 1 CAPSULE BY MOUTH 3 TIMES DAILY NEEDED 02/28 completed Not Available Not Available Not Available metoclopram britta 10 mg tablet TAKE 1/2 TABLET BY MOUTH EVERY 6 HOURS 11/09 completed Not Available Not Available Not Available Depo-Sterilizer Machine Operator a 150 mg/mL intramuscul ar syringe Inject 1 mL every 3 months by intramusc ular route. 12/25 completed Not Available Not Available Not Available azithromyci n 500 mg tablet TAKE 1 TABLET BY MOUTH EVERY DAY FOR 5 DAYS 03/13 completed Not Available Not Available Not Available Junel FE 1.5/30 (28) 1.5 mg-30 mcg (21)/75 mg (7) tablet TAKE 1 TABLET BY MOUTH EVERY DAY 04/08 completed Not Available Not Available Not Available nitrofurant oin monohydrate /macrocryst als 100 mg capsule TAKE 1 CAPSULE BY MOUTH TWICE A DAY FOR 7 DAYS 11/09 completed Not Available Not Available Not Available ursodiol 500 mg tablet Take by oral route for 30 days. 05/29 completed Not Available Not Available Not Available active Not Available Not Avai lable Not Available Symbicort 160 mcg-4.5 mcg/actuati on HFA aerosol inhaler TAKE 2 PUFFS BY INHALATIO N 2 TIMES DAILY. 04/08 completed Not Available Not Available Not Available PNV-DHA 27 mg iron-1 mg-300 mg capsule 05/29 completed Not Available Not Available Not Available 28 mg iron-800 mcg tablet TAKE 1 TABLET BY MOUTH EVERY DAY 05/29 completed Not Available Not Available Not Available Multi-DHA (with vitamin K) 27 mg iron-800 mcg-260 mg capsule Take 1 capsule every day by oral route. 2021 active Not Available Not Available Not Avai lable Phexxi 1.8 %-1 %-0.4 % vaginal gel INSERT 1 APPLICATO RFUL VAGINALLY 11/13 completed Not Available Not Available Not Available Vitals Date Recorded Body weight Body mass index (BMI) Body height Systolic blood pressure Diastolic blood pressure Provider Name and Address Organization Details Last Updated DateTime 07/09/2024 81257.74 105 g 28.8 kg/m2 161.29 cm 118 mm[Hg] 68 mm[Hg] Pam Mandujano [facility] 5 16:27:01 Date Recorded Body height Body mass index (BMI) Body weight Systolic blood pressure Diastolic blood pressure Provider Name and Address Organization Details Last Updated DateTime 08/06/2024 161.29 cm 31.2 kg/m2 93763.03 g 125 mm[Hg] 78 mm[Hg] Pam Mandujano [facility] 5 13:12:22 Date Recorded Body weight Body mass index (BMI) Body height Systolic blood pressure Diastolic blood pressure Provider Name and Address Organization Details Last Updated DateTime 08/27/2024 64540.18 082 g 32.4 kg/m2 161.29 cm 115 mm[Hg] 68 mm[Hg] Pam Mandujano [facility] 12:08:58 Social History Question Answer Notes LastModified by Organizat ion Details LastModified Time Tobacco Smoking Status Never Smoker Pam Mandujano null, [facility] 02/01/2022 16:49:42 Do You Have An Advance Directive? No [email or web address] Information n ot available 02/01/2022 What Is Your Level Of Alcohol Consumption? None [email or web address] Information not available 11/17/2021 If You Are , What Was Your Level Of Alcohol Consumption Prior To ? None [email or web address] Information not available 02/01/2022 Are You Blind Or Do You Have Difficulty Seeing? No [email or web address] Information n ot available 11/17/2021 What Is Your Level Of Caffeine Consumption? Occasional [email or web address] Information not available 11/17/2021 How Much Tobacco Do You Chew? None [email or web address] Information not available 02/01/2022 In The 14 Days Before Symptom Onset, Have You Had Close Contact With A Laboratory-confirm ed COVID-19 While That Case Was Ill? No Information n ot available 11/17/2021 In The 14 Days Before Symptom Onset, Have You Had Close Contact With A Person Who Is Under Investigation For COVID-19 While That Person Was Ill? No [email or web address] Information not available 11/17/2021 Have You Been To An Area Known To Be High Risk For COVID-19? No [email or web address] Information not available 11/17/2021 Are You Deaf Or Do You Have Serious Difficulty Hearing? No [email or web address] Information not available 11/17/2021 What Type Of Diet Are You Following? REGULAR [email or web address] Information n ot available 11/17/2021 What Is The Highest Grade Or Level Of School You Have Completed Or The Highest Degree You Have Received? 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 No [email or web address] Information not available 02/01/2022 Do You Use Protection During Sex? No Information not available 02/01/2022 Do You Use Your Seat Belt Or Car Seat Routinely? Yes [email or web address] Information not available 11/17/2021 Do You Have Smoke And Carbon Monoxide Detectors In Your Home? Yes [email or web address] Information not available 11/17/2021 How Much Tobacco Do You Smoke? No [email or web address] Information not available 02/01/2022 Do You Feel Stressed (tense, Restless, Nervous, Or Anxious, Or Unable To Sleep At Night)? [id number] [email or web address] Information not available 11/17/2021 Do You Use Any Illicit Or Recreational Drugs? No [email or web address] Information not available 11/17/2021 Do You Use Sunscreen Routinely? No [email or web address] Information not available 02/01/2022 Has Tobacco Cessation Counseling Been Provided? No [email or web address] Information not available 02/01/2022 Have You Used IV Drugs? No Information not available 02/01/2022 Do You Or Have You Ever Used Any Other Forms Of Tobacco Or Nicotine? No [email or web address] Information not available 02/01/2022 Sex: Unknown Functional Status Question Answer Note LastModified by Organizat ion Details LastModified Time Do you have difficulty walking or climbing stairs? No [email or web address] Information not available 02/01/2022 Are you able to walk? YESWOREST [email or web address] Information not available 11/17/2021 Are you able to care for yourself? Yes [email or web address] Information not available 02/01/2022 Do you have difficulty dressing or bathing? No [email or web address] Information not available 02/01/2022 What is your exercise level? Occasional [email or web address] Information not available 11/17/2021 Mental Status None recorded. Family History Relationship Description Onset Age of this Age Resolved Age Notes LastModified by Organization Details LastModified Time Mother Anemia [email or web address] Not available 11/17/2021 10:52:02 Mother Hypercholest erolemia [email or web address] Not available 11/17 10:52:35 Mother Hypertensive disorder [email or web address] Not available 11/17 10:52:48 Father Diabetes mellitus [email or web address] Not available 11/17 10:52:18 Father Hypercholest erolemia Not available 11/17 10:52:34 Father Hypertensive disorder [email or web address] Not available 11/17 10:52:48 Paternal Grandmother Diabetes mellitus [email or web address] Not available 11/17 10:52:18 Medical History Condition Response Allergies (Food, seasonal, environmental ) Y Other N Breast Cancer N Drug/Latex Allergies/Reactions N Blood Transfusion N Dermatologic Disorders N Lung Disease N Defects or Inherited Disease N Breast Problem N Gestational Diabetes N Hematologic disorders N Anesthesia Complications N History of STI N Deep Vein Thrombosis N Polycystic ovary syndrome N Anxiety Disorder N Autoimmune disease N Arthritis N Infertility N Polyps N Acid Reflux (GERD) N History of abnormal pap N Cancer N Stroke N Varicosities N Neurologic/Epilepsy N Endometriosis N High Cholesterol N Headaches N Fibromyalgia N Kidney Disease N Heart Problems N Kidney or Bladder Problems N Thyroid Problems N GI Problems N Eating Disorder N Anemia N Art (IVF or FET) N Psychiatric Illness N Ovarian Cancer N Diabetes N Pulmonary (TB, Asthma) N Hepatitis/Liver Disease N No Past Medical History N Eczema N Urinary Tract Infection N Abuse/Domestic Violence N Asthma Y Trauma/Violence N Depression/ depression N Heart Disease N Pre-Eclampsia Y Hypertension N Osteoporosis N Thrombophilias N Gynecological History Statement/Question Response Date of Last Mammogram Flow Moderate Date of LMP 01/12/2024 N Was last menstrual period normal Y STIs/STDs N Date of Last Colonoscopy None Desired Control Method None Abnormal Pap N On BCP's at Conception? N HPV Vaccine N Duration of Flow (days) 4 Current Control Method Age at First Child 19 Are cycles usually normal Y Frequency of Cycle (Q days) 28 Most Recent Bone Density Sexually Active? Y Menses Monthly Y Age of first menstrual cycle 15 Date of Last Pap Smear Sexual Problems? N LMP Definite N Obstetrics History GPAL:G 5 P 2 0 2 2 Type Value Full Term 2 Spontaneous 2 Living 2 Total 5 Past Encounters Encounter ID Performer Location Encounter Start Date Encounter Closed Date Diagnosis/Indication Diagnosis SNOMED-CT Code Diagnosis ICD10 Code Diagnosis Note [id number] Jean Marie Hinojosa MD [place] [address] [address] 11/09/2021 14:18:48 11/09/2021 14:41:59 [id number] [facility] [address],[place] [address] 11/09/2021 14:20:09 11/09/2021 15:44:45 Amenorrhea 02053071 N91.2 [facility] [id number] R42 [id number] Dariana Carrillo MD [place] [address],[place] [address] 12/04/2021 13:53:51 12/05/2021 15:38:07 Routine care 466947543 Z34.92 Past pregn coleman history of pre-eclampsia 9496986607 54868 Z87.59 [id number] Dariana Carrillo MD [place] [address],[place] [address] 01/02/2022 12:26:49 01/02/2022 13:54:06 screening 839973259 Z36.3 [id number] Dariana Carrillo MD [place] [address],[place] [address] 01/02/2022 14:06:12 01/02/2022 17:33:41 Past history of pre-eclampsia 1650636238 03368 Z87.59 Routine an tenatal care 379868415 Z34.92 [id number] [facility] [address],[place] [address] 02/01/2022 16:40:05 02/01/2022 17:06:56 Routine care 985314508 Z34.82 [id number] [facility] [address],[place] [address] 02/27/2022 17:42:24 02/27/2022 18:31:11 Routine care 388301460 Z34.82 [id number] Jean Marie Hinojosa MD [place] [address],[place] [address] 03/12/2022 16:55:31 03/12/2022 18:25:20 Pre-existing maternal disease complicating 5322499274 6106 O99.891 Z87.59 Z3A.30 [id number] Pearl Baird [facility] [address],[place] [address] 03/13/2022 14:43:32 03/13/2022 16:31:10 Routine care 651939787 Z34.82 [id number] Jean Marie Hinojosa MD [place] [address],[place] [address] 03/13/2022 15:53:42 03/13/2022 16:27:55 Cholestasis of 204076255 O26.619 [id number] Jean Marie Hinojosa MD [place] [address] [address] 03/27/2022 15:23:11 03/27/2022 16:17:35 Cholestasis of 927016739 O26.619 [id number] Jean Marie Hinojosa MD [place] [address],[place] [address] 03/27/2022 15:24:22 03/27/2022 16:48:54 Cholestasis of 743641606 O26.619 Z3A.32 [id number] Pearl Baird [facility] [address],[place] [address] 03/27/2022 15:24:48 03/27/2022 16:59:29 Routine care 754601904 Z34.82 [id number] Jean Marie Hinojosa MD [place] [address],[place] [address] 04/03/2022 15:28:56 04/03/2022 18:26:11 Cholestasis of 624879519 O26.613 Z3A.33 [id number] Jean Marie Hinojosa MD [place] [address],[place] [address] 04/03/2022 15:29:10 04/03/2022 16:58:25 Cholestasis of 780764213 O26.613 Z3A.33 [id number] [facility] [address],[place] [address] 04/03/2022 15:29:26 04/05/2022 15:54:27 Routine care 656489107 Z34.82 [id number] Jean Marie Hinojosa MD [place] [address],[place] [address] 04/10/2022 14:51:05 04/10/2022 16:04:51 Cholestasis of 152897182 O26.613 Z3A.33 [id number] Jean Marie Hinojosa MD [place] [address],[place] [address] 04/10/2022 14:51:45 04/11/2022 12:28:23 Cholestasis of 669736558 O26.613 Z3A.34 [id number] [facility] [address],[place] [address] 04/10/2022 14:52:27 04/10/2022 16:49:29 Routine care 994467657 Z34.82 [id number] Jean Marie Hinojosa MD [place] [address],[place] [address] 04/17/2022 15:53:36 04/17/2022 17:56:04 Cholestasis of 899232353 O26.613 Z3A.34 [id number] MD Ciarra Benz [address],[place] [address] 04/17/2022 15:54:33 04/17/2022 17:02:11 Cholestasis of 165709222 O26.613 Z3A.35 [id number] Pearl Baird CNM [place] [address],[place] [address] 04/17/2022 15:54:48 04/17/2022 17:25:33 [id number] Jean Marie Hinojosa MD [place] [address],[place] [address] 04/24/2022 11:34:28 04/24/2022 12:40:52 Cholestasis of 605074071 O26.613 Z3A.35 [id number] Pearl Baird [facility] [address],[place] [address] 04/24/2022 11:35:25 04/24/2022 12:42:22 Routine care 357389059 Z34.82 [id number] Pearl Baird [facility] [address],[place] [address] 05/29/2022 13:47:05 05/29/2022 15:17:42 care 698069226 Z39.2 Contracept ion care management 018985128 Z30.9 if desires depo may have with menstrual cycle, reviewed phexxi, rx to pharmacy f/u wwe in 6 mo [id number] Pearl Baird [facility] [address],[place] [address] 06/26/2022 17:59:55 06/27/2022 11:43:26 Contraception care management 203695407 Z30.9 if desires depo may have with menstrual cycle, f/u 3 mo [id number] Pearl Baird [facility] [address],[place] [address] 06/26/2022 18:36:02 06/27/2022 11:39:45 Contraception care management 154960586 Z30.9 Contraception care 61395 5005 Z30.40 [id number] Pearl Baird [facility] [address] [place] [address] 08/16/2022 12:28:47 08/16/2022 14:12:58 Contraception care management 069623494 Z30.9 discussed options, condoms, vasectomy, pt declines rx f/u wwe [id number] Pearl Baird [facility] [address],[place] [address] 11/13/2022 12:04:30 11/13/2022 12:26:02 Amenorrhea 02087531 N91.2 cont to monitor, may be deferred due to depoprover a Gynecologi c examination 34081347 Z01.419 ok for refills of phexxi if needed, 2 sample packs given Abdominal pain 92922623 R10.9 labs ordered, [id number] Pearl Baird CNM [place] [address] [address] 12/25/2022 17:46:58 12/26/2022 12:25:36 Irregular periods 03732151 N92.6 continue to monitor Vaginitis 12663542 N76.0 culture sent, rec daily probiotic, if normal can consider boric acid [id number] GREG MILLER MD [facility] [address],[place] [address] 01/24/2023 13:39:22 01/27/2023 11:42:21 Abnormal uterine bleeding [id number] 9100 N93.9 - amenorrhei c from May until November after depo injection- daily bleeding since December 03- no other inciting factor aside from depo shot- discussed likely cause of depo injection, will likely self resolve over time, ok for expectant management given no signs of symptomati c anemia- recommende d course of Provera to stabilize uterine lining and improve bleeding, patient declines due to concern over additional hormones- could consider hysterosco py D&C if bleeding persists over time to r/o polyp vs endometria l abnormalit y- patient to call back after she decides what she would like to do [id number] RAN Luu [facility] [address],[place] [address] 02/28/2023 10:07:52 02/28/2023 11:08:03 Abnormal uterine bleeding [id number] 9100 N93.9 symptoms have resolvedUP T done per pt request - negativeBC - declinedvu lvar care guidelines discussedg c/ct/trich testing sentsafe sexual practices encouraged urine cx sentwill update pt with results when availableR TC if symptoms return, otherwise due for WWE 10/2023 Time spent in visit is a total of 18 mins with at least 50% of visit consisting of counseling and review of plan of care. Urinary symptoms [id number] 08 R39.9 Vulval irritation 150578 003 N90.89 Venereal d isease screening 497121090 Z11.3 [id number] Pearl Baird [facility] [address],[place] [address] 05/02/2023 15:22:13 05/02/2023 16:02:54 Irregular periods 42850578 N92.6 continue to monitor, disc side effects risks and benefits including blood clot, stroke, mi, will take for 3-6 mo f/u med check in 3 months [id number] Jean Marie Hinojosa MD [facility] [address],[place] [address] 04/08/2024 11:04:41 04/08/2024 11:44:37 screening 427351057 Z36.82 Z3A.12 [id number] Jean Marie Hinojosa MD [facility] [address],[place] [address] 04/08/2024 11:05:24 04/08/2024 15:20:08 Routine care [id number] Z34.90 [id number] Pearl Baird [facility] [address],[place] [address] 05/07/2024 15:52:04 05/07/2024 16:37:59 Gestation period, 16 weeks 46498664 Z3A.16 [id number] Jean Marie Hinojosa MD [facility] [address],[place] [address] 06/11/2024 11:05:09 06/11/2024 12:02:43 screening for malformation 307673104 Z36.3 Z3A.21 [id number] Pearl Baird [facility] [address],[place] [address] 06/11/2024 11:05:24 06/11/2024 12:37:08 Gestation period, 21 weeks 97256152 Z3A.21 continue vitamin [id number] Jean Marie Hinojosa MD [facility] [address],[place] [address] 07/09/2024 15:29:47 07/12/2024 07:57:24 Placenta circumvallata [id number] O43.112 Z3A.25 [id number] [facility] [address],[place] [address] 07/09/2024 15:30:05 07/12/2024 10:36:21 Gestation period, 25 weeks 35008772 Z3A.25 continue vitamin [id number] Jean Marie Hinojosa MD [facility] [address],[place] [address] 08/06/2024 11:58:38 08/06/2024 13:44:38 Placenta circumvallata [id number] O43.112 Z3A.29 [id number] [facility] [address],[place] [address] 08/06/2024 12:00:07 08/06/2024 13:44:19 Gestation period, 29 weeks [id number] Z3A.29 [id number] Jean Marie Hinojosa MD [facility] [address],[place] [address] 08/27/2024 11:33:52 08/27/2024 13:43:29 Past history of pre-eclampsia [id number] 36165 O09.299 O43.113 Z3A.32 [id number] Pearl Baird [facility] [address],[place] [address] 08/27/2024 11:34:06 08/27/2024 13:38:01 Gestation period, 32 weeks 4905064 Z3A.32 Past pregn coleman history of pre-eclampsia [id number] 45479 O09.299 Health Concerns Section Related Observation LastModified by Organization Detai ls LastModified Time None Recorded Concern Status LastModified by Organization Details LastModified Time None Recorded Advance Directives Directive N: Payers Encounter Date Sequence Insurance Name Policy Number Policy Lockhart Covered Member ID Lockhart Member ID Guarantor Name 07/09/2024 1 [facility] [id number] 0003 Caro M Chung [id number] Caro Chung 08/06/2024 1 [facility] [id number] 0003 Caro M Chung [id number] Caro Chung 08/06/2024 1 [facility] [id number] 0003 Caro M Chung [id number] Caro Chung 08/27/2024 1 [facility] [id number] 0003 Caro M Chung [id number] Caro Chung 08/27/2024 1 [facility] [place] [id number] 0003 Caro M Chung [id number] Caro Chung OBGyn Episode Ob Episode Information Episode Created Date Number of Fetuses Patient Bloodtype Patient rh Status Prepregnancy Weight lbs Domestic Partner Domestic Partner Phone Father Name [employer] Captain Status 11/18/19 22 1 CLOSED Fetus Data First Name Last Name Admitted to NICU Weight (g) Sex Living Outcome Pediatric Complications Fetus ID Race Codes Race Delivery Type 2919.77 1704 F Full Term [id number] Vaginal Delivery Yvon Calculation Initial Yvon Date Initial Exam Date Initial Exam Provider Initial Ultrasound Date Last Menstrual Period Date Ultra Sound Weeks Gestation 0 Eighteen To Twenty Week Yvon Update Ultra Sound Date Fundal Height At Umbil Quickening Date Ultra Sound Latest Weeks Gestation Final Yvon Confirmed By Final Yvon Confirmed Date Final Yvon Date Ultra Sound Latest Days Gestation 0 0 Menstrual History Last Menstrual Date Menses Monthly On Bcp Conception Prior Menses Frequency Hcg Plus Date Menarche Onset Age Delivery Information Delivery Date Delivery Type Labor Anesthesia Weeks Gestation Incision Type Labor Labor Length Hrs Delivered By Post Complications Tubal Sterilization Discharge Date Comments 0 41 preeclam p michelle Discharge Information Feeding Method Contraceptive Method Maternal HG B and HCT Levels Ob Episode Information Episode Created Date Number of Fetuses Patient Bloodtype Patient rh Status Prepregnancy Weight lbs Domestic Partner Domestic Partner Phone Father Name [employer] Captain Status 12/05/19 22 1 A Positive 163 CLOSED Fetus Data First Name Last Name Admitted to NICU Weight (g) Sex Living Outcome Pediatric Complications Fetus ID Race Codes Race Delivery Type 2976.69 75 M true Full Term [id number] Vaginal Delivery Problems Problem Notes wants placenta attached to h er baby until after she is discharged from hospital- i told her hell no since she already hates doctors (ATD)04/03 PI WNL Problem Name Start Date End Date Resolution Snomed Code Not e Past history of pre-eclampsia [id number] ASA, baseli ne pIH labs Marijuana user [id number] encou raged cessation Cholestasis [id number] Ursodiol 300mg BID, testing (pt declined 2x/wk), 37 wk delivery. Yvon Calculation Initial Yvon Date Initial Exam Date Initial Exam Provider Initial Ultrasound Date Last Menstrual Period Date Ultra Sound Weeks Gestation 05/19/2022 12/04/2021 11/09/2021 12 Eighteen To Twenty Week Yvon Update Ultra Sound Date Fundal Height At Umbil Quickening Date Ultra Sound Latest Weeks Gestation Final Yvon Confirmed By Final Yvon Confirmed Date Final Yvon Date Ultra Sound Latest Days Gestation 0 [email or web address] 12/04/2021 05/19/19 23 0 Pre- Flowsheet Flowsheet Date 12/04/2021 Nassar Score Blood Edema Fundus Height Fundus Units Glucose Ketones Leukocytes Nitrite Labor Signs Protein Cervic Dilation Cervic Effacement Cervic Station Type Weight in lbs Pre/Post Dialysis Refused BP Diastolic BP Location Tested BP Systolic BP Type Fetus Heart Rate Present Fetus Movement Comments Flowsheet Date 12/04/2021 Nassar Score Blood Edema Fundus Height Fundus Units Glucose Ketones Leukocytes Nitrite Labor Signs Protein Cervic Dilation Cervic Effacement Cervic Station neg none none trace Type Weight in lbs Pre/Post Dialysis Refused Weight 167.451790291317 BP Diastolic BP Location Tested BP Systolic BP Type 82 125 Fetus Heart Rate Present A 165 Fetus Movement A No Comments Caro is a 21yo at 16.2 who presents begrugingly for care. She is forward with the statement that she hates doctors and wants to know why she is here. SHe state she had a horrible with her first and was forced into a long induction at only 41w and she knows it is safe to stay until 42w. She had preeclampsia. This she wants a obed . We discussed both that obed not available at [facility], nor at most hospitals because of the infection risk and no benefits to baby once the placenta detaches. 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 I encouraged her to deliver with her aunt if that is something she feels strongly about because that is not available here because science does not support that it is safe. We also discussed that if she develops preE after 37w we will recommed delivery for the safety of her and her baby. She is taking ASA. SHe requests PNV script. Labs and NIPT. Encouraged to seek a provider that she may see more eye to eye with. She spent much of the visit arguing with every argument. We did not discuss COVID vaccine recommendations.Anatomy US next visit. Flowsheet Date 01/02/2022 Nassar Score Blood Edema Fundus Height Fundus Units Glucose Ketones Leukocytes Nitrite Labor Signs Protein Cervic Dilation Cervic Effacement Cervic Station Type Weight in lbs Pre/Post Dialysis Refused BP Diastolic BP Location Tested BP Systolic BP Type Fetus Heart Rate Present Fetus Movement Comments Flowsheet Date 01/02/2022 Nassar Score Blood Edema Fundus Height Fundus Units Glucose Ketones Leukocytes Nitrite Labor Signs Protein Cervic Dilation Cervic Effacement Cervic Station neg trace trace trace Type Weight in lbs Pre/Post Dialysis Refused Weight 170.055491111314 BP Diastolic BP Location Tested BP Systolic BP Type 77 128 Fetus Heart Rate Present A 135 Fetus Movement A Yes Comments Doing fine except GERD, disc ussed OTCs. US today anatomy complete and wnl. Baseline PIH labs today. Flowsheet Date 02/01/2022 Nassar Score Blood Edema Fundus Height Fundus Units Glucose Ketones Leukocytes Nitrite Labor Signs Protein Cervic Dilation Cervic Effacement Cervic Station Type Weight in lbs Pre/Post Dialysis Refused Weight 184.645724946049 BP Diastolic BP Location Tested BP Systolic BP Type 85 123 Fetus Heart Rate Present A 138 Present Fetus Movement Comments gerd taking otc, not sure wh at its called, chewable, does not want pepcid, will not take any pills, also ok to do apple cider vinegarrec GCT disc risk of GDM pt unsure and will talk to partner, rec fresh test or grape juice if pt desires. will let us know at next visit, precautions reviewed f/u 4 weeks, plan maternity support belt at 28 weeks Flowsheet Date 02/27/2022 Nassar Score Blood Edema Fundus Height Fundus Units Glucose Ketones Leukocytes Nitrite Labor Signs Protein Cervic Dilation Cervic Effacement Cervic Station neg trace 33 none trace Type Weight in lbs Pre/Post Dialysis Refused Weight 196.261192005995 BP Diastolic BP Location Tested BP Systolic BP Type 85 117 Fetus Heart Rate Present A 134 Fetus Movement A Yes Comments patient is having some swell ing. pt forgot juice for GCT and has daughter with her would like to do GCT/blood work at next visit. taking asa daily, precautions reviewed f/u 2 weeks with growth Flowsheet Date 03/12/2022 Nassar Score Blood Edema Fundus Height Fundus Units Glucose Ketones Leukocytes Nitrite Labor Signs Protein Cervic Dilation Cervic Effacement Cervic Station Type Weight in lbs Pre/Post Dialysis Refused BP Diastolic BP Location Tested BP Systolic BP Type Fetus Heart Rate Present Fetus Movement Comments Flowsheet Date 03/13/2022 Nassar Score Blood Edema Fundus Height Fundus Units Glucose Ketones Leukocytes Nitrite Labor Signs Protein Cervic Dilation Cervic Effacement Cervic Station neg trace none trace Type Weight in lbs Pre/Post Dialysis Refused Weight 202.537387401828 BP Diastolic BP Location Tested BP Systolic BP Type 90 133 Fetus Heart Rate Present Fetus Movement A Yes Comments patient states that having p ain, contractions, swelling, and itching all over. x couple weeks.pt upset about coming in today, does not want every 2 week visits, discussed imp of routine care, if cholestasis discussed risk of , need for nst's, rec of ursdiol, will discuss after results are in. reviewed growth us and will plan another in 4 weeks, denies rojas, visual changes takes asa daily, labs today Flowsheet Date 03/13/2022 Nassar Score Blood Edema Fundus Height Fundus Units Glucose Ketones Leukocytes Nitrite Labor Signs Protein Cervic Dilation Cervic Effacement Cervic Station Type Weight in lbs Pre/Post Dialysis Refused BP Diastolic BP Location Tested BP Systolic BP Type Fetus Heart Rate Present Fetus Movement Comments Flowsheet Date 03/27/2022 Nassar Score Blood Edema Fundus Height Fundus Units Glucose Ketones Leukocytes Nitrite Labor Signs Protein Cervic Dilation Cervic Effacement Cervic Station Type Weight in lbs Pre/Post Dialysis Refused BP Diastolic BP Location Tested BP Systolic BP Type Fetus Heart Rate Present Fetus Movement Comments Flowsheet Date 03/27/2022 Nassar Score Blood Edema Fundus Height Fundus Units Glucose Ketones Leukocytes Nitrite Labor Signs Protein Cervic Dilation Cervic Effacement Cervic Station Type Weight in lbs Pre/Post Dialysis Refused BP Diastolic BP Location Tested BP Systolic BP Type Fetus Heart Rate Present Fetus Movement Comments Flowsheet Date 03/27/2022 Nassar Score Blood Edema Fundus Height Fundus Units Glucose Ketones Leukocytes Nitrite Labor Signs Protein Cervic Dilation Cervic Effacement Cervic Station neg none none trace Type Weight in lbs Pre/Post Dialysis Refused Weight 206.952580801839 BP Diastolic BP Location Tested BP Systolic BP Type 88 149 Fetus Heart Rate Present Fetus Movement A Yes Comments patient is having some contr actions and discharge. denies current rojas, visual changes, epigastric pain, weekly testing, rec 2 x week nst for cholestasis, hx pre-e recheck labs today precautions reviewed bpp 02/04, plan delivery around 37 weeks Flowsheet Date 04/03/2022 Nassar Score Blood Edema Fundus Height Fundus Units Glucose Ketones Leukocytes Nitrite Labor Signs Protein Cervic Dilation Cervic Effacement Cervic Station Type Weight in lbs Pre/Post Dialysis Refused BP Diastolic BP Location Tested BP Systolic BP Type Fetus Heart Rate Present Fetus Movement Comments Flowsheet Date 04/03/2022 Nassar Score Blood Edema Fundus Height Fundus Units Glucose Ketones Leukocytes Nitrite Labor Signs Protein Cervic Dilation Cervic Effacement Cervic Station Type Weight in lbs Pre/Post Dialysis Refused BP Diastolic BP Location Tested BP Systolic BP Type Fetus Heart Rate Present Fetus Movement Comments Flowsheet Date 04/03/2022 Nassar Score Blood Edema Fundus Height Fundus Units Glucose Ketones Leukocytes Nitrite Labor Signs Protein Cervic Dilation Cervic Effacement Cervic Station neg trace none trace Type Weight in lbs Pre/Post Dialysis Refused Weight 207.677234741304 BP Diastolic BP Location Tested BP Systolic BP Type 90 139 Fetus Heart Rate Present Fetus Movement A Yes Comments patient is having some swell ing, nausea and vomiting. reviewed todays testing, pt wants to encapsulate placenta, discouraged encapsulation due to medical problems in , plan to send to pathology, +FM reviewed 37 week IOL, recheck labs for PIH, denies rojas visual changes and epigastric pain, reviewed all current lab work, precautions reviewed Flowsheet Date 04/10/2022 Nassar Score Blood Edema Fundus Height Fundus Units Glucose Ketones Leukocytes Nitrite Labor Signs Protein Cervic Dilation Cervic Effacement Cervic Station Type Weight in lbs Pre/Post Dialysis Refused BP Diastolic BP Location Tested BP Systolic BP Type Fetus Heart Rate Present Fetus Movement Comments Flowsheet Date 04/10/2022 Nassar Score Blood Edema Fundus Height Fundus Units Glucose Ketones Leukocytes Nitrite Labor Signs Protein Cervic Dilation Cervic Effacement Cervic Station Type Weight in lbs Pre/Post Dialysis Refused BP Diastolic BP Location Tested BP Systolic BP Type Fetus Heart Rate Present Fetus Movement Comments Flowsheet Date 04/10/2022 Nassar Score Blood Edema Fundus Height Fundus Units Glucose Ketones Leukocytes Nitrite Labor Signs Protein Cervic Dilation Cervic Effacement Cervic Station neg none none trace Type Weight in lbs Pre/Post Dialysis Refused Weight 202.437559126953 BP Diastolic BP Location Tested BP Systolic BP Type 76 127 Fetus Heart Rate Present Fetus Movement A Yes Comments patient is still having some itching and is worse the last 2 days, increase to ursadiol 500 mg BID, recheck cmp and bile acids, NST and BPP 02/04, EFW 60%, planning 37 week delivery will schedule next visit, precautions reviewed gbs next week Flowsheet Date 04/17/2022 Nassar Score Blood Edema Fundus Height Fundus Units Glucose Ketones Leukocytes Nitrite Labor Signs Protein Cervic Dilation Cervic Effacement Cervic Station Type Weight in lbs Pre/Post Dialysis Refused BP Diastolic BP Location Tested BP Systolic BP Type Fetus Heart Rate Present Fetus Movement Comments Flowsheet Date 04/17/2022 Nassar Score Blood Edema Fundus Height Fundus Units Glucose Ketones Leukocytes Nitrite Labor Signs Protein Cervic Dilation Cervic Effacement Cervic Station Type Weight in lbs Pre/Post Dialysis Refused BP Diastolic BP Location Tested BP Systolic BP Type Fetus Heart Rate Present Fetus Movement Comments Flowsheet Date 04/17/2022 Nassar Score Blood Edema Fundus Height Fundus Units Glucose Ketones Leukocytes Nitrite Labor Signs Protein Cervic Dilation Cervic Effacement Cervic Station Type Weight in lbs Pre/Post Dialysis Refused BP Diastolic BP Location Tested BP Systolic BP Type Fetus Heart Rate Present Fetus Movement Comments IOL scheduled 04/29/2022 at 0500 for cholestasis, reviewed kick counts, labor precautions, GBS done, check cervix next week for induction method. BPP 12/03 Flowsheet Date 04/24/2022 Nassar Score Blood Edema Fundus Height Fundus Units Glucose Ketones Leukocytes Nitrite Labor Signs Protein Cervic Dilation Cervic Effacement Cervic Station Type Weight in lbs Pre/Post Dialysis Refused Weight 209.410881617357 BP Diastolic BP Location Tested BP Systolic BP Type 93 156 Fetus Heart Rate Present Fetus Movement Comments Flowsheet Date 04/24/2022 Nassar Score Blood Edema Fundus Height Fundus Units Glucose Ketones Leukocytes Nitrite Labor Signs Protein Cervic Dilation Cervic Effacement Cervic Station Type Weight in lbs Pre/Post Dialysis Refused BP Diastolic BP Location Tested BP Systolic BP Type Fetus Heart Rate Present Fetus Movement Comments Flowsheet Date 04/24/2022 Nassar Score Blood Edema Fundus Height Fundus Units Glucose Ketones Leukocytes Nitrite Labor Signs Protein Cervic Dilation Cervic Effacement Cervic Station neg none none trace Type Weight in lbs Pre/Post Dialysis Refused BP Diastolic BP Location Tested BP Systolic BP Type Fetus Heart Rate Present Fetus Movement A Yes Comments reviewed NST and blood press ure, to ld for monitoring and labs Flowsheet Date 05/29/2022 Nassar Score Blood Edema Fundus Height Fundus Units Glucose Ketones Leukocytes Nitrite Labor Signs Protein Cervic Dilation Cervic Effacement Cervic Station Type Weight in lbs Pre/Post Dialysis Refused Weight 197.387963419536 BP Diastolic BP Location Tested BP Systolic BP Type 80 118 Fetus Heart Rate Present Fetus Movement Comments Flowsheet Date 06/26/2022 Nassar Score Blood Edema Fundus Height Fundus Units Glucose Ketones Leukocytes Nitrite Labor Signs Protein Cervic Dilation Cervic Effacement Cervic Station Type Weight in lbs Pre/Post Dialysis Refused BP Diastolic BP Location Tested BP Systolic BP Type Fetus Heart Rate Present Fetus Movement Comments Flowsheet Date 06/26/2022 Nassar Score Blood Edema Fundus Height Fundus Units Glucose Ketones Leukocytes Nitrite Labor Signs Protein Cervic Dilation Cervic Effacement Cervic Station Type Weight in lbs Pre/Post Dialysis Refused Weight 195.160214071382 BP Diastolic BP Location Tested BP Systolic BP Type 81 125 Fetus Heart Rate Present Fetus Movement Comments Flowsheet Date 08/16/2022 Nassar Score Blood Edema Fundus Height Fundus Units Glucose Ketones Leukocytes Nitrite Labor Signs Protein Cervic Dilation Cervic Effacement Cervic Station Type Weight in lbs Pre/Post Dialysis Refused Weight 189.358857065082 BP Diastolic BP Location Tested BP Systolic BP Type 86 136 Fetus Heart Rate Present Fetus Movement Comments Menstrual History Last Menstrual Date Menses Monthly On Bcp Conception Prior Menses Frequency Hcg Plus Date Menarche Onset Age Genetic Screening And Infection History Question Response Note Mental Retardation/Autism false Patient's Age Will Be 35 Years Or Older At Estim ated Date of Delivery false Thalassemia (Cymro, Kazakh, Mediterranean, Or Background): MCV < 80 false Neural Tube Defect (Meningomyelocele, Spina Bifi da, Or Anencephaly) false Congenital Heart Defect false Down Syndrome false Terrence-Sachs (eg, Baptism, Cajun, Bermudian-[place]ceana) f alse Landon Disease false Sickle Cell Disease Or Trait () false Hemophilia Or Other Blood Disorders false Muscular Dystrophy false Cystic Fibrosis false [place]'s Chorea false Intellectual Disability/Autism false If Yes, Was Person Tested For Fragile X? false Other Inherited Genetic Or Chromosomal Disorder false Maternal Metabolic Disorder (eg, Type 1 Diabetes , PKU) false Patient Or Baby's Father Had A Child With Defects Not Listed Above false Recurrent Loss, Or A Stillbirth false Medications (including Suppl ements, Vitamins, Herbs, OTC Drugs), Illicit/Recreational Drugs, Alcohol true If Yes, Agent(s) And Strength/Dosage false Any Other Genetic History false Live With Someone With TB Or Exposed To TB false Patient Or Partner Has History Of Genital Herpes false Rash Or Viral Illness Since Last Menstrual Perio d false History Of STD, Gonorrhea, Chlamydia, HPV, Syphi lis false Other Infection History false History of HIV false History of Hepatitis false Prior GBS-infected child false Hemoglobinopathy Or Carrier false Other Structural Defect false Recent Travel History Outside of Country false Delivery Information Delivery Date Delivery Type Labor Anesthesia Weeks Gestation Incision Type Labor Labor Length Hrs Delivered By Post Complications Tubal Sterilization Discharge Date Comments 3 Induce d Regional-Ep idural 37.1 false Pearl Baird COLTENJohny Cholestas is Discharge Information Feeding Method Contraceptive Method Maternal HG B and HCT Levels Ob Episode Information Episode Created Date Number of Fetuses Patient Bloodtype Patient rh Status Prepregnancy Weight lbs Domestic Partner Domestic Partner Phone Father Name [employer] Captain Status 11/18/19 22 1 CLOSED Fetus Data First Name Last Name Admitted to NICU Weight (g) Sex Living Outcome Pediatric Complications Fetus ID Race Codes Race Delivery Type , [place] [id number] Yvon Calculation Initial Yvon Date Initial Exam Date Initial Exam Provider Initial Ultrasound Date Last Menstrual Period Date Ultra Sound Weeks Gestation 0 Eighteen To Twenty Week Yvon Update Ultra Sound Date Fundal Height At Umbil Quickening Date Ultra Sound Latest Weeks Gestation Final Yvon Confirmed By Final Yvon Confirmed Date Final Yvon Date Ultra Sound Latest Days Gestation 0 0 Menstrual History Last Menstrual Date Menses Monthly On Bcp Conception Prior Menses Frequency Hcg Plus Date Menarche Onset Age Delivery Information Delivery Date Delivery Type Labor Anesthesia Weeks Gestation Incision Type Labor Labor Length Hrs Delivered By Post Complications Tubal Sterilization Discharge Date Comments 1 Discharge Information Feeding Method Contraceptive Method Maternal HG B and HCT Levels Ob Episode Information Episode Created Date Number of Fetuses Patient Bloodtype Patient rh Status Prepregnancy Weight lbs Domestic Partner Domestic Partner Phone Father Name Fire Prevention [employer] Captain Status 11/18/19 22 1 DELETED Yvon Calculation Initial Yvon Date Initial Exam Date Initial Exam Provider Initial Ultrasound Date Last Menstrual Period Date Ultra Sound Weeks Gestation 0 Eighteen To Twenty Week Yvon Update Ultra Sound Date Fundal Height At Umbil Quickening Date Ultra Sound Latest Weeks Gestation Final Yvon Confirmed By Final Yvon Confirmed Date Final Yvon Date Ultra Sound Latest Days Gestation 0 0 Menstrual History Last Menstrual Date Menses Monthly On Bcp Conception Prior Menses Frequency Hcg Plus Date Menarche Onset Age Delivery Information Delivery Date Delivery Type Labor Anesthesia Weeks Gestation Incision Type Labor Labor Length Hrs Delivered By Post Complications Tubal Sterilization Discharge Date Comments 0 Discharge Information Feeding Method Contraceptive Method Maternal HG B and HCT Levels Ob Episode Information Episode Created Date Number of Fetuses Patient Bloodtype Patient rh Status Prepregnancy Weight lbs Domestic Partner Domestic Partner Phone Father Name [employer] Captain Status 11/18/19 22 1 CLOSED Fetus Data First Name Last Name Admitted to NICU Weight (g) Sex Living Outcome Pediatric Complications Fetus ID Race Codes Race Delivery Type , Spontane ous [id number] Yvon Calculation Initial Yvon Date Initial Exam Date Initial Exam Provider Initial Ultrasound Date Last Menstrual Period Date Ultra Sound Weeks Gestation 0 Eighteen To Twenty Week Yvon Update Ultra Sound Date Fundal Height At Umbil Quickening Date Ultra Sound Latest Weeks Gestation Final Yvon Confirmed By Final Yvon Confirmed Date Final Yvon Date Ultra Sound Latest Days Gestation 0 0 Menstrual History Last Menstrual Date Menses Monthly On Bcp Conception Prior Menses Frequency Hcg Plus Date Menarche Onset Age Delivery Information Delivery Date Delivery Type Labor Anesthesia Weeks Gestation Incision Type Labor Labor Length Hrs Delivered By Post Complications Tubal Sterilization Discharge Date Comments 1 Discharge Information Feeding Method Contraceptive Method Maternal HG B and HCT Levels Ob Episode Information Episode Created Date Number of Fetuses Patient Bloodtype Patient rh Status Prepregnancy Weight lbs Domestic Partner Domestic Partner Phone Father Name [employer] Captain Status 04/08/20 24 1 OPEN Fetus Data First Name Last Name Admitted to NICU Weight (g) Sex Living Outcome Pediatric Complications Fetus ID Race Codes Race Delivery Type [id number] Problems Problem Notes Problem Name Start Date End Date Resolution Snomed Code Not e Past history of cholestasis in [id number] Past history of pre-eclampsia [id number] Placenta circumvallata [id number] Rpt 32wk growth us Yvon Calculation Initial Yvon Date Initial Exam Date Initial Exam Provider Initial Ultrasound Date Last Menstrual Period Date Ultra Sound Weeks Gestation 04/08/2024 04/08/2024 01/12/2024 12 Eighteen To Twenty Week Yvon Update Ultra Sound Date Fundal Height At Umbil Quickening Date Ultra Sound Latest Weeks Gestation Final Yovn Confirmed By Final Yvon Confirmed Date Final Yvon Date Ultra Sound Latest Days Gestation 0 [email or web address] 04/08/2024 10/19/19 25 0 Pre- Flowsheet Flowsheet Date 04/08/2024 Nassar Score Blood Edema Fundus Height Fundus Units Glucose Ketones Leukocytes Nitrite Labor Signs Protein Cervic Dilation Cervic Effacement Cervic Station Type Weight in lbs Pre/Post Dialysis Refused Weight 140.366448638970 BP Diastolic BP Location Tested BP Systolic BP Type 76 L arm 118 sitting Fetus Heart Rate Present A 145 Fetus Movement A No Comments this patient is a 24-year-ol d multiparous female at 12 weeks' gestation who presents for initial care. She has a history of term vaginal births. Her medical, surgical, obstetric history is unremarkable. She is vaccinated. She was given precautions recommendations for . We talked about vaccines in . Talked about care in detail. She is having genetic testing. She had a normal 12 week ultrasound. To begin routine care. Flowsheet Date 05/07/2024 Nassar Score Blood Edema Fundus Height Fundus Units Glucose Ketones Leukocytes Nitrite Labor Signs Protein Cervic Dilation Cervic Effacement Cervic Station none Type Weight in lbs Pre/Post Dialysis Refused 147.055657747517 BP Diastolic BP Location Tested BP Systolic BP Type 75 125 Fetus Heart Rate Present A 148 Present Fetus Movement A Yes Comments Patient is having nausea. st art bASA hx pre-e, baseline cholestasis, pt worried about her itching. also worried about anemia, craving ice precautions and education f/u 4 weeks with baseline Flowsheet Date 06/11/2024 Nassar Score Blood Edema Fundus Height Fundus Units Glucose Ketones Leukocytes Nitrite Labor Signs Protein Cervic Dilation Cervic Effacement Cervic Station Type Weight in lbs Pre/Post Dialysis Refused BP Diastolic BP Location Tested BP Systolic BP Type Fetus Heart Rate Present Fetus Movement Comments Flowsheet Date 06/11/2024 Nassar Score Blood Edema Fundus Height Fundus Units Glucose Ketones Leukocytes Nitrite Labor Signs Protein Cervic Dilation Cervic Effacement Cervic Station neg none Type Weight in lbs Pre/Post Dialysis Refused 148.652984888220 BP Diastolic BP Location Tested BP Systolic BP Type 75 113 Fetus Heart Rate Present Fetus Movement A Yes Comments Patient is having some pelvi c pain and she fell on Friday. + blood type +FM anatomy complete, circumvallate placenta f/u 4 weeks Flowsheet Date 07/09/2024 Nassar Score Blood Edema Fundus Height Fundus Units Glucose Ketones Leukocytes Nitrite Labor Signs Protein Cervic Dilation Cervic Effacement Cervic Station Type Weight in lbs Pre/Post Dialysis Refused BP Diastolic BP Location Tested BP Systolic BP Type Fetus Heart Rate Present Fetus Movement Comments Flowsheet Date 07/09/2024 Nassar Score Blood Edema Fundus Height Fundus Units Glucose Ketones Leukocytes Nitrite Labor Signs Protein Cervic Dilation Cervic Effacement Cervic Station neg trace Type Weight in lbs Pre/Post Dialysis Refused 165.654720383640 BP Diastolic BP Location Tested BP Systolic BP Type 68 118 Fetus Heart Rate Present Fetus Movement A Yes Comments Patient is having heartburn, nose bleeds, discharge and swelling. ok for tums, saline nasal spray reviewed us, efw 36 % partial circumvallate placenta f/u 4 weeks with gct wants to bring juice like last Flowsheet Date 08/06/2024 Nassar Score Blood Edema Fundus Height Fundus Units Glucose Ketones Leukocytes Nitrite Labor Signs Protein Cervic Dilation Cervic Effacement Cervic Station Type Weight in lbs Pre/Post Dialysis Refused BP Diastolic BP Location Tested BP Systolic BP Type Fetus Heart Rate Present Fetus Movement Comments Flowsheet Date 08/06/2024 Nassar Score Blood Edema Fundus Height Fundus Units Glucose Ketones Leukocytes Nitrite Labor Signs Protein Cervic Dilation Cervic Effacement Cervic Station neg trace Type Weight in lbs Pre/Post Dialysis Refused Weight 179.594334988905 BP Diastolic BP Location Tested BP Systolic BP Type 78 125 Fetus Heart Rate Present Fetus Movement A Yes Comments Patient is having BH contrac tions, discharge and swelling. reviewed US +FM efw 27%, f/u 3 weeks as preferred by pt gct today Flowsheet Date 08/27/2024 Nassar Score Blood Edema Fundus Height Fundus Units Glucose Ketones Leukocytes Nitrite Labor Signs Protein Cervic Dilation Cervic Effacement Cervic Station Type Weight in lbs Pre/Post Dialysis Refused BP Diastolic BP Location Tested BP Systolic BP Type Fetus Heart Rate Present Fetus Movement Comments Flowsheet Date 08/27/2024 Nassar Score Blood Edema Fundus Height Fundus Units Glucose Ketones Leukocytes Nitrite Labor Signs Protein Cervic Dilation Cervic Effacement Cervic Station neg trace Type Weight in lbs Pre/Post Dialysis Refused 186.885602249531 BP Diastolic BP Location Tested BP Systolic BP Type 68 115 Fetus Heart Rate Present Fetus Movement A Yes Comments Patient is having contractio n, discharge, swelling, heartburn and acid reflux. reviewed us, precautions and education efw 43% call for preadmit f/u 2 weeks Menstrual History Last Menstrual Date Menses Monthly On Bcp Conception Prior Menses Frequency Hcg Plus Date Menarche Onset Age 0901/12/2024 true Delivery Information Delivery Date Delivery Type Labor Anesthesia Weeks Gestation Incision Type Labor Labor Length Hrs Delivered By Post Complications Tubal Sterilization Discharge Date Comments Discharge Information Feeding Method Contraceptive Method Maternal HG B and HCT Levels
--- OUTSIDE RECORDS SUMMARY | 2024-08-30 16:15 | XMS_ITS | Clinical Summary ---
Author Organization [facility] Address [address] [place] [address] Phone Care Team Providers Care Lens Finisher Name Role Phone An Ace Primary Care Provider + Shilpi Fatima APRN, DINING ROOM TABLES SET UP ATTENDANT Unavailable Reji Deal MD Unavailable [phone] Abimael Grimes MD Unavailable [phone] Allergies No known active allergies Medications Vit-Fe Fumarate-FA ( VITAMINS PO) Take by mouth. Active Active Problems Problem Noted Date Diagnosed Date Abdominal pain 01/02/2024 Asthma Comments Yes Resolved Problems Problem Noted Date Diagnosed Date Resolved Date Post-operative pain 01/02/2024 01/02/20 24 Vertigo 01/02/2024 Overview (01/02/2024): as a child Encounters Date Type Department Care Team Description 07/28/2024 8:30 AM CDT [facility] [address] [place] [address] An Ace PAC Hamilton, Kirstin E, PT Chronic left-sided low back pain, unspecified whether sciatica present (Primary Dx); Weakness; Abnormal posture Discharge Disposition: Discharged to home or Selfcare 07/28/2024 Travel 07/23/2024 Telephone [facility] [address], [address] [place] [address] Madhavi Ferraro, PT Transportation Issues 07/14/2024 8:30 AM CDT Physical [facility] [address], [address] [place] [address] An Ace PAC Hamilton, Kirstin E, PT Chronic left-sided low back pain, unspecified whether sciatica present (Primary Dx); Weakness; Abnormal posture Discharge Disposition: Discharged to home or Selfcare 07/14/2024 Travel 07/09/2024 9:15 AM CDT Physical [facility] [address] [place] [address] An Ace PAC Hamilton, Kirstin E, PT Chronic left-sided low back pain, unspecified whether sciatica present (Primary Dx); Weakness; Abnormal posture Discharge Disposition: Discharged to home or Selfcare 07/09/2024 Travel 07/07/2024 Telephone [facility] [address], [address] [place] [address] Madhavi Ferraro, PT No Show (1st NSNC- patient came to her appointment 15 minutes late) 06/30/2024 9:15 AM WOOL HANDLER Physical [facility] [address], [address] [place] [address] An Ace PAC Hamilton, Kirstisabel Justice, PT Chronic left-sided low back pain, unspecified whether sciatica present (Primary Dx); Weakness Discharge Disposition: Discharged to home or Selfcare 06/30/2024 Travel 06/25/2024 Telephone [facility] [address] [place] [address] Hailee Ty, PT Appointment (Same-day cancel) 06/22/2024 9:15 AM WOOL HANDLER Physical Therapy [facility] [address], [address] [place] [address] An Ace, Madhavi Brown, PT Chronic left-sided low back pain, unspecified whether sciatica present (Primary Dx); Weakness; Abnormal posture Discharge Disposition: Discharged to home or Selfcare 06/22/2024 Travel 06/07/2024 8:30 AM WOOL HANDLER Physical Therapy [facility] [address], [address] [place] [address] An Ace, Hailee Merlos, PT Chronic left-sided low back pain, unspecified whether sciatica present (Primary Dx); Weakness; Abnormal posture Discharge Disposition: Discharged to home or Selfcare 06/07/2024 Plan of Care Documentation [facility] [address], [address] [place] [address] 06/07/2024 Travel from Last 3 Months Immunizations Immunization Administration Dates Next Due DTAP VACCINE 11/04/2006, 4,2002,07/15,2002 Hepatitis A Vaccine, Pediatric/adolescent, 2 Dose Schedule 11/29/2005,10/15/2004 Hepatitis B Vaccine, Pediatric/adolescent 2002,2002,2002 Hib Vaccine,unspecified Formulation 12/2003,2002,2002,05/18 Human Papillomavirus Vaccine (HPV), quadrivalent 05/31/2014,12/30/2013,10/20/2013 Inactivated Polio Vaccine 11/04/2006,12/2003,2002,05/18 Influenza Vaccine Nasal 06/08/2009,03/06/2007 Influenza Vaccine, Quadrivalent, PF 02/27,03/24/2017,05/22/2016,03/10 Influenza Vaccine,unspecifie d Formulation 03/17/2019,07/07/2012,01/10/2011,03/10,03/27/2005,04/07/2003,03/08/2003 Influenza, Seasonal, Injecta ble, Undefined 03/04/2013 MMR Vaccine 11/04/2006,03/22/2003 Meningococcal Vaccine 10/20/2013 Pneumococcal Vaccine Peds - 7 Valent ,2002,2002,05/18 TDAP Vaccine 05/26/2019,07/07/2012 Varicella Vaccine Live 11/04/2006,03/22/2003 Family History Medical History Relation Name Comments No Known Problems Brother Diabetes Father Diabetes Maternal Grandfather No Known Problems Maternal Grandmother Rheumatoid Arthritis Mother Diabetes Paternal Grandfather Diabetes Paternal Grandmother Relation Name Status Comments Brother Alive Father Alive Maternal Grandfather Maternal Grandmother Alive Mother Alive Paternal Grandfather Paternal Grandmother Social History Tobacco Use Types Packs/Day Years Used Date Smoking Tobacco: Never Smokeless Tobacco: Never Tobacco Cessation:Counseling Given: Not Answered Alcohol Use Standard Drinks/Week Comments Never 0 (1 standard drink = 0.6 oz pur e alcohol) [facility] GetFeedback Answer Date Recorded In the past 12 months has [employer], [employer], [employer], or water [employer] threatened to shut off services in your [...] How often do you attend chur or mandaeism services? Patient declined 10/22/2023 Do you belong to any clubs o r organizations such as confucianist groups, unions, fraternal or athletic groups, or [...] medical care, and heating? Somewhat hard 10/22/2023 PHQ-2 Answer Date Recorded Total Score - Questions 1-9 0 04/29 [facility] - Occupational Stress Questionnaire Answer Date Recorded [...] any time in the past 12 m [facility], were you homeless or living in a care home (including now)? Patient declined 01/02/2024 Comments Yes Sex and Gender Information Value Date Recorded Sex Assigned at Not on file Legal Sex Female 11:31 PM CDT Gender Identity Not on file Sexual Orientation Not on file Last Filed Vital Signs Vital Sign Reading Time Taken Comments Blood Pressure 110/62 05/24/2024 11:23 AM WOOL HANDLER Pulse 83 05/24/2024 11:23 AM WOOL HANDLER Temperature 37 C (98.6 F) 05/24/2024 11:23 AM WOOL HANDLER Respiratory Rate 18 02/29/2024 5:45 PM WOOL HANDLER Oxygen Saturation 100% 05/24/2024 11:23 AM WOOL HANDLER Inhaled Oxygen Concentration - - Weight 67.6 kg (149 lb) 05/24/2024 11:23 AM WOOL HANDLER Height 162.6 cm (5' 4 ) 05/24/2024 11:23 AM WOOL HANDLER Body Mass Index 25.58 05/24/2024 11:23 AM WOOL HANDLER Plan of Treatment Health Maintenance Due Date Last Done Comments Meningococcal B Immunization (1 of 2 - Standard) 2018 Pneumococcal Immunization Combined (1 of 2 - PCV) 2021 04/26/2004, 2002, 2002, Additional history exists Pap Smear 2023 SARS-COV-2 Immunization ( season) 2023 Influenza Immunization (Season Ended) 2024 03/17/2019, 03/17/2019, 03/24/2017, Additional history exists Hepatitis C Virus (HCV) Screening 04/08/2025 04/08/2024, 11/09/2021 DTaP/Tdap/Td Immunization (8 - Td or Tdap) 05/26/2029 05/26/2019, 07/07/2012, 11/04/2006, Additional history exists Respiratory Syncytial Virus (RSV) Immunization (Adult) (1 - 1-dose 75+ series) 2077 Hepatitis B Immunization Completed 003, 2002, 2002 Hepatitis A Immunization Discontinued 11/29/2005, 09/27 Measles Mumps Rubella (MMR) Immunization Discontinued 11/04/2006, 03/22/2003 Polio (IPV) Immunization Discontinued 007, 07/05/2003, 2002, Additional history exists Varicella Immunization Discontinued 11/04/2006, 2002 Meningococcal Immunization (ACWY) Aged Out 10/20/2013 No longer eligible based on patient's age to complete this topic Human Papillomavirus (HPV) Immunization Completed 05/31/2014, 12/30/2013, 10/20/2013 Rotavirus Immunization Aged Out No lo nger eligible based on patient's age to complete this topic Insurance MEDICAID [place] Advance Directives * Full Code (Latest Code Status on File) Date Activated Date Inactivated Comments 01/02/2024 2:07 AM CPR-Full Treatm ent: FULL ARREST: Attempt Resuscitation/CPR wit intubation and mechanical ventilation. PRE-ARREST: Use entire range of life support measures to stabilize the patient. Care Teams Lens Finisher Relationship Specialty Start Date End Date An Ace PAC [address] [place] [address] PCP - General Physician Client Engagement Specialist 01/16/23 Shilpi Fatima APRN, DINING ROOM TABLES SET UP ATTENDANT [address] [place] [address] Nurse Practitioner Advanced Practice Nurse 02/13/23 Reji Deal MD [address] [place] [phone] Consulting Physician Neurology 07/18/23 Abimael Grimes MD [address] [phone] Consulting Physician General Surgery 12/12/23
[2024-08-30 16:32] LABS: OBXCEM ROM Plus Negative (Negative)
== END 2024-08-30 15:37 | disposition home or self-care (01) ==
LOC: ANHOBOP 15:40
PROVIDERS: Obstetrics & Gynecology; Visit Provider Advanced Practice Midwife
DX: O42.90 Premature rupture of membranes, unspecified as to length of time between rupture and onset of labor, unspecified weeks of gestation (principal); Z3A.00 Weeks of gestation of pregnancy not specified
CPT/HCPCS: 59025; 84112

== ENCOUNTER 2024-08-31 14:20 | Outpatient (CLI) | payer OTHER, SELFPAY ==
--- NOTE | ~2024-08-31 | US_ITS ---
EXAMINATION: US OB limited DATE: 08/31/2024 15:05 INDICATION: MEAGAN BORDERLINE LOW . TECHNIQUE: Real-time ultrasound of the pelvis was performed. COMPARISON: None. FINDINGS: There is a single living fetus in vertex presentation, longitudinal lie. The placenta is anterior an d to the maternal right. heart rate is 142 bpm. The amniotic fluid index is 9.7 cm, which is no rmal (5th to 95th percentile is 8.3 to 24.5 cm). IMPRESSION: Single living fetus in vertex presentation. Normal MEAGAN. Reviewed, dictated and finalized at location K.
--- OUTSIDE RECORDS SUMMARY | 2024-08-31 14:25 | XMS_ITS | Encounter Summary ---
Author Organization [facility] Address [address] [facility] [place] [address] Care Team Providers Care It Software Developer Name Role Phone Maria M Garza MD Unavailable [phone] Encounter Details Date Type Department Care Team (Late st Contact Info) Description 01/14/2019 Telephone [facility] - Neurology [address] [place] [phone] Uzma Ferro MD [address] [place] [address] [phone] Social History Tobacco Use Types Packs/Day Years Used Date Smoking Tobacco: Never Assessed Comments No Sex and Gender Information Value Date Recorded Sex Assigned at Not on file Legal Sex Female 8:01 AM PLANNING OFFICIAL Gender Identity Not on file Sexual Orientation [...] on filedocumented in this encounter Care Teams It Software Developer Relationship Specialty Start Date End Date Maria M Garza MD [address] [place] [phone] Pediatrics 02/12/17 documented as of this encounter
--- OUTSIDE RECORDS SUMMARY | 2024-08-31 14:26 | XMS_ITS | Referral Summary ---
Author Organization [facility] Address [address] [place] [address] Care Team Providers Care Project Development Coordinator Name Role Phone Elliot Ha MD Primary [...] on file Legal Sex Female 10:47 AM ELECTRIC RAZOR MECHANIC Gender Identity Not on file Sexual Orientation [...] Plan of Treatment Not on file [place] [place] [address] [facility] [place] [address] [facility] Advance Directives For more information, please contact: [phone] * Full Code (Latest Code Status on File) Date Activated Date Inactivated Comments 08/24/2019 7:48 PM 08/28/2019 8:52 PM Full CPR in c ase of cardiopulmonary arrest Care Teams Project Development Coordinator Relationship Specialty Start Date End Date Elliot Ha MD [address] [facility] [address] [place] [address] [address] PCP - General Obstetrics and Gynecology 11/09/21
--- OUTSIDE RECORDS SUMMARY | 2024-08-31 14:26 | XMS_ITS | Clinical Summary ---
Author Organization [facility] Address [address] [place] [address] Phone Care Team Providers Care Pharmaceutical Process Engineer Name Role Phone An Ace Primary Care Provider + Shilpi Fatima APRN, CANCER REGISTRY COORDINATOR Unavailable Reji Deal MD Unavailable [phone] Abimael Grimes MD Unavailable Allergies No known active allergies Medications Vit-Fe Fumarate-FA ( VITAMINS PO) Take by mouth. Active Active Problems Problem Noted Date Diagnosed Date Abdominal pain 01/02/2024 Asthma Comments Yes Resolved Problems Problem Noted Date Diagnosed Date Resolved Date Post-operative pain 01/02/2024 01/02/20 24 Vertigo 01/02/2024 Overview (01/02/2024): as a child Encounters Date Type Department Care Team Description 07/28/2024 8:30 AM CDT Physical Therapy [facility] [address], [address] [place] [address] An Ace PAC Hamilton, Kirstin E, PT Chronic left-sided low back pain, unspecified whether sciatica present (Primary Dx); Weakness; Abnormal posture Discharge Disposition: Discharged to home or Selfcare 07/28/2024 Travel 07/23/2024 Telephone [facility] [address], [address] [place] [address] Madhavi Ferraro, PT Transportation Issues 07/14/2024 8:30 AM CDT Physical Therapy [facility] [address], [address] [place] [address] An Ace PAC Hamilton, Kirstin E, PT Chronic left-sided low back pain, unspecified whether sciatica present (Primary Dx); Weakness; Abnormal posture Discharge Disposition: Discharged to home or Selfcare 07/14/2024 Travel 07/09/2024 9:15 AM CDT Physical Therapy [facility] [address], [address] [place] [address] An Ace PAC Hamilton, Kirstin E, PT Chronic left-sided low back pain, unspecified whether sciatica present (Primary Dx); Weakness; Abnormal posture Discharge Disposition: Discharged to home or Selfcare 07/09/2024 Travel 07/07/2024 Telephone [facility] [address], [address] [place] [address] Madhavi Ferraro, PT No Show (1st NSNC- patient came to her appointment 15 minutes late) 06/30/2024 9:15 AM BUSINESS OPERATIONS DIRECTOR Physical Therapy [facility] [address], [address] [place] [address] An Ace PAC Hamilton, Kirstisabel Justice, PT Chronic left-sided low back pain, unspecified whether sciatica present (Primary Dx); Weakness Discharge Disposition: Discharged to home or Selfcare 06/30/2024 Travel 06/25/2024 Telephone [facility] at [facility] [address], [address] [place] [address] Hailee Ty, PT Appointment (Same-day cancel) 06/22/2024 9:15 AM BUSINESS OPERATIONS DIRECTOR Physical Therapy [facility] at [facility] [address], [address] [place] [address] An Ace, Madhavi Brown, PT Chronic left-sided low back pain, unspecified whether sciatica present (Primary Dx); Weakness; Abnormal posture Discharge Disposition: Discharged to home or Selfcare 06/22/2024 Travel 06/07/2024 8:30 AM BUSINESS OPERATIONS DIRECTOR Physical Therapy [facility] at [facility] [address], [place] [address] [place] [address] An Ace, Hailee Merlos, PT Chronic left-sided low back pain, unspecified whether sciatica present (Primary Dx); Weakness; Abnormal posture Discharge Disposition: Discharged to home or Selfcare 06/07/2024 Plan of Care Documentation [facility] at [facility] [address], [place] [address] [place] [address] 06/07/2024 Travel from Last 3 Months Immunizations [...] = 0.6 oz pur e alcohol) [facility] [employer] Answer Date Recorded In the past 12 months has [employer] | [employer], [employer], [employer], or water [employer] threatened to shut off services in your [...] How often do you attend chur or confucianism services? Patient declined 10/22/2023 Do you belong to any clubs o r organizations such as episcopal groups, unions, fraternal or athletic groups, or [...] Total Score - Questions 1-9 0 04/29 [facility] - Occupational Stress Questionnaire Answer Date [...] any time in the past 12 m [facility], were you homeless or living in a half-way (including now)? Patient declined 01/02/2024 Comments Yes Sex and Gender Information Value Date Recorded Sex Assigned at Not on file Legal Sex Female 11:31 PM CDT Gender Identity Not on file Sexual Orientation Not on file Last Filed Vital Signs Vital Sign Reading Time Taken Comments Blood Pressure 110/62 05/24/2024 11:23 AM BUSINESS OPERATIONS DIRECTOR Pulse 83 05/24/2024 11:23 AM BUSINESS OPERATIONS DIRECTOR Temperature 37 C (98.6 F) 05/24/2024 11:23 AM BUSINESS OPERATIONS DIRECTOR Respiratory Rate 18 02/29/2024 5:45 PM BUSINESS OPERATIONS DIRECTOR Oxygen Saturation 100% 05/24/2024 11:23 AM BUSINESS OPERATIONS DIRECTOR Inhaled Oxygen Concentration - - Weight 67.6 kg (149 lb) 05/24/2024 11:23 AM BUSINESS OPERATIONS DIRECTOR Height 162.6 cm (5' 4 ) 05/24/2024 11:23 AM BUSINESS OPERATIONS DIRECTOR Body Mass Index 25.58 05/24/2024 11:23 AM BUSINESS OPERATIONS DIRECTOR Plan of Treatment Health Maintenance Due Date [...] measures to stabilize the patient. Care Teams Pharmaceutical Process Engineer Relationship Specialty Start Date End Date An Ace PAC [address] [place] [address] PCP - General Physician Business Manager College Or University 01/16/23 Shilpi Fatima APRN, CANCER REGISTRY COORDINATOR [address] [place] [address] Nurse Practitioner Advanced Practice Nurse 02/13/23 Reji Deal MD [address] [place] [phone] Consulting Physician Neurology 07/18/23 Abimael Grimes MD [address] [phone] Consulting Physician General Surgery 12/12/23"
--- OUTSIDE RECORDS SUMMARY | 2024-08-31 14:26 | XMS_ITS | Clinical Summary ---
Author Organization [facility] Address [address] [place] [address] Care Team Providers Care Critical Care Clinical Nurse Specialist Name Role Phone Maria M Garza MD Unavailable [phone] Source Comments [facility],non-owned Affiliates and Associated Physician Practices is amultiple site organization consisting of ambulatory clinics and hospital sitesin [place], [place], [place] and [place]. This disclosure is being madepursuant to the Care Everywhere program and may not contain all information available regarding this patient. Last updated 18.[facility] Allergies No known active allergies Medications * [...] 08/20/2016 Assessment & Plan (03/10/2017 12:24 PM LASTING FLOORWORKER): Headaches have improved and can further improve [...] on file Legal Sex Female 8:01 AM LASTING FLOORWORKER Gender Identity Not on file Sexual Orientation [...] patient's age to complete this topic Insurance [place] [id number] Care Teams Critical Care Clinical Nurse Specialist Relationship Specialty Start Date End Date Maria M Garza MD [address] [place] [address] Pediatrics 02/12/17
--- OUTSIDE RECORDS SUMMARY | 2024-08-31 14:26 | XMS_ITS | Encounter Summary ---
Author Organization [facility] Address [address] [place] [address] Phone Care Team Providers Care Oil Lease Buyer Name Role Phone An Ace PAC Primary Care Provider + Shilpi Fatima APRN, GETTER WELDER Unavailable Reji Deal MD Unavailable Abimael Grimes MD Unavailable Encounter Details Date Type Department Care Team (Late st Contact Info) Description 04/19/2024 Telephone [facility] [address] [place] [address] An Ace, PAC [address] [place] [address] Social History Tobacco Use Types Packs/Day Years Used Date Smoking Tobacco: Never Smokeless Tobacco: Never Alcohol Use Standard Drinks/Week Comments Never 0 (1 standard drink = 0.6 oz pur e alcohol) [facility] Utilities Answer Date Recorded In the [...] often do you attend chur ch or mu-ism services? Patient declined 10/22/2023 Do you belong to any clubs o r organizations such as synagogue groups, unions, fraternal or athletic groups, or [...] medical care, and heating? Somewhat hard 10/22/2023 [facility] [...] any time in the past 12 m [facility], were you homeless or living in a long-term (including now)? Patient declined 01/02/2024 Comments Yes Sex and Gender Information Value Date Recorded Sex Assigned at Not on file Legal Sex Female 11:31 PM CDT Gender Identity Not on file Sexual Orientation Not on file documented as of this encounter Plan of Treatment Not on file documented as of this encounter Visit Diagnoses Not on filedocumented in this encounter Care Teams Oil Lease Buyer Relationship Specialty Start Date End Date An Ace PAC [address] [place] [address] PCP - General Physician Television Producer 01/16/23 Shilpi Fatima APRN, GETTER WELDER [address] [place] [address] Nurse Practitioner Advanced Practice Nurse 02/13/23 Reji Deal MD [address] [place] [address] Consulting Physician Neurology 07/18/23 Abimael Grimes MD [address] [phone] Consulting Physician General Surgery 12/12/23 documented as of this encounter
--- OUTSIDE RECORDS SUMMARY | 2024-08-31 14:26 | XMS_ITS | Encounter Summary ---
Author Organization [facility] Address [address] [place] [address] Phone Care Team Providers Care Hotel Director Name Role Phone An Ace Primary Care Provider + Shilpi Fatima APRN, FICTION AND NONFICTION PROSE WRITER Unavailable Reji Deal MD Unavailable Abimael Grimes MD Unavailable Encounter Details Date Type Department Care Team (Late st Contact Info) Description 03/03/2024 [facility]cribe [facility] [address] [place] [address] Alessandra Helm V, INKING MACHINE TENDER, FICTION AND NONFICTION PROSE WRITER [address] [facility] [facility] [address] [facility] [address] [place] [address] Encounter for supervision of normal , antepartum, unspecified (Primary Dx) Social History Tobacco Use Types Packs/Day Years Used Date Smoking Tobacco: Never Smokeless Tobacco: Never Alcohol Use Standard Drinks/Week Comments Never 0 (1 standard drink = 0.6 oz pur e alcohol) [facility] Utilities Answer Date Recorded In the past 12 months has [employer], oil, or water [employer] threatened to shut off services in your [...] any clubs o r organizations such as rastafari groups, unions, fraternal or athletic groups, or [...] medical care, and heating? Somewhat hard 10/22/2023 [facility] - Occupational Stress [...] any time in the past 12 m [facility], were you homeless or living in a nursing home (including now)? Patient declined 01/02/2024 Comments [...] BETA SUBUNIT SERUM QUANT (03/19/2024 3:18 PM TAX REPRESENTATIVE) HCG BETA SUBUNIT, QUANT [id number] (H) 0.00 - 5.00 mIU/mL 03/19/2024 5:50 PM TAX REPRESENTATIVE [facility] Blood Venipuncture / Unknown 03/19/2024 3:18 PM TAX REPRESENTATIVE 03/19/2024 5:03 PM TAX REPRESENTATIVE Narrative [facility] - 03/19/2024 5:50 PM TAX REPRESENTATIVE HCG levels should be interpreted with consideration [...] APRN, CNP CHEMISTRY ORDERABLES Final Result [facility] [address] [place] [address] documented in this encounter Visit Diagnoses Diagnosis Encounter for supervision of normal , antepartum, unspecified - Primary documented in this encounter Care Teams Hotel Director Relationship Specialty Start Date End Date An Ace PAC [address] [place] [address] PCP - General Physician Decorating Supervisor 01/16/23 Shilpi Fatima APRN, ELOISA [address] [place] [address] Nurse Practitioner Advanced Practice Nurse 02/13/23 Reji Deal MD [address] [place] [address] Consulting Physician Neurology 07/18/23 Abimael Grimes MD [address] [address] Consulting Physician General Surgery 12/12/23 documented as of this encounter
--- OUTSIDE RECORDS SUMMARY | 2024-08-31 14:26 | XMS_ITS | Clinical Summary ---
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 Gender Identity Not on file Sexual Orientation [...] Vaccines Completed 05/31/2014, 07/2013, 10/20/[id number] [facility] [address] [place] [address] Advance Directives For more information, please contact: [phone] * Full Code (Latest Code Status on File) Date Activated Date Inactivated Comments 08/24/2019 7:48 PM 08/28/2019 8:52 PM Full CPR in c ase of cardiopulmonary arrest Care Teams Ball Warper Tender Relationship Specialty Start Date End Date Elliot Ha MD [address] [place] [address] [address] [facility] [address] [place] [address] PCP - General Obstetrics and Gynecology 11/09/21
--- NOTE | 2024-08-31 19:39 | PC.NURSE ---
Pt discharged with prescription for macrobid, instructions to keep next scheduled appointment, and when to return to the unit, pt verbalizes understanding.
== END 2024-08-31 19:39 | disposition home or self-care (01) ==
LOC: ANHIMG 14:22
PROVIDERS: Visit Provider Obstetrics & Gynecology
DX: R10.9 Unspecified abdominal pain (principal)
CPT/HCPCS: 76815; J0696

== ENCOUNTER 2024-09-16 09:21 | Outpatient (RCR) | payer OTHER, SELFPAY ==
[2024-08-31 16:22] LABS: Add Urine Microscopic? YES; Appearance Urine Cloudy (Clear); Bacteria Urine 3+ /hpf; Bilirubin Urine Negative (Negative); Blood Urine Negative (Negative); Color Urine Yellow (Yellow); Glucose Urine UA Negative (Negative); Ketones Urine Negative (Negative); Leukocyte Esterase Ur 2+ LEU/UL (Negative); Nitrate Urine Negative (Negative); Non Pathogenic Casts 0-2; Protein Urine Negative (Negative); RBC Urine 0-2 /hpf (0-2); Specific Grav Ur 1.009 (1.001-1.035); Squamous Epithelial Cell Urine Few /hpf (Few); Urobilinogen Urine 0.2 mg/dL (<2.0)
--- NOTE | 2024-08-31 16:31 | PC.NURSE ---
Updated Juliana Baird CNM on pt c/o right flank pain and UA results. Orders received for kidney ultrasound and antibiotics.
[2024-08-31 16:42] VITALS: BP 122/71; PULSE 86
--- NOTE | ~2024-09-16 | US_ITS ---
EXAMINATION: US renal BI DATE: 08/31/2024 17:37 INDICATION: right flank pain TECHNIQUE: Multiple grayscale and Doppler ultrasound images of the kidneys were obtained. COMPARISON: None. FINDINGS: The right kidney measures 11.0 x 4.4 x 6.8 cm. The left kidney measures 11.4 x 5.8 x 5.5 cm. The kidn eys demonstrate normal parenchymal echogenicity. There is mild right pelviectasis and caliectasis. Bl adder wall thickening to 3 mm. No urinary bladder debris detected. Bilateral ureteral jets present. IMPRESSION: Mild right pelviectasis and caliectasis. Bladder wall thickening which may be secondary to incomplete distention or cystitis, correlate with urinalysis. Reviewed, dictated and finalized at [facility]. IMPRESSION: Mild right pelviectasis and caliectasis. Bladder wall thickening which may be s econdary to incomplete distention or cystitis, correlate with urinalysis.
[2024-09-16 10:23] LABS: OBXCEM ROM Plus Negative (Negative)
== END 2024-10-16 07:07 | disposition home or self-care (01) ==
LOC: ANHOBOP 09:21
PROVIDERS: Visit Provider Advanced Practice Midwife
DX: O26.893 Other specified pregnancy related conditions, third trimester (principal); R10.11 Right upper quadrant pain; Z3A.33 33 weeks gestation of pregnancy
CPT/HCPCS: 59025; 76775; 81001; 84112; 87086

== ENCOUNTER 2024-10-04 13:10 | Outpatient (CLI) | payer OTHER, SELFPAY ==
[2024-10-04 13:30] VITALS: BP 122/77; PULSE 113
[2024-10-04 13:45] VITALS: BP 129/93
[2024-10-04 14:00] VITALS: BP 127/72; PULSE 92
[2024-10-04 14:01] LABS: Basophils Percent Auto 0.3 % (0.2-1.2); Eosinophils Absolute Auto 0.2 K/mm3 (0-0.3); Eosinophils Percent Auto 1.6 % (0-4.4); Hematocrit 36.1 % (37.0-47.0); Hemoglobin 11.8 g/dL (12.0-15.0); Immature Granulocyte Absolute 0.05 K/mm3 (0.00-0.031); Immature Granulocyte Percent A 0.5 % (0-0.5); Lymphocytes Absolute Auto 1.48 K/mm3 (0.9-3.2); Lymphocytes Percent Auto 15.7 % (18.3-44.2); Mean Corpuscular HGB Conc 32.7 g/dl (32-36); Mean Corpuscular Hemoglobin 30.2 pg (26-34); Mean Corpuscular Volume 92.3 fl (80-100); Mean Platelet Volume 11.1 fl (7.4-10.4); Monocytes Absolute Auto 0.8 K/mm3 (0.1-0.6); Monocytes Percent Auto 8.5 % (2.6-8.5); Neutrophils Absolute Auto 6.9 K/mm3 (1.3-6.7); Neutrophils Percent Auto 73.4 % (45.5-73.1); Platelet Count Result 154 k/mm3 (150-375); Red Blood Count 3.91 M/mm3 (4.2-5.4); Red Cell Distribution Width 14.4 % (11.5-14.5); White Blood Count 9.4 K/mm3 (4.5-10.0)
[2024-10-04 14:08] LABS: Creatinine Urine 27.1 mg/dL; Total Protein Urine Random 14 mg/dL; Ur Ttl Prot Creatinine Ratio 0.52 mg/mg (0-0.20)
[2024-10-04 14:11] LABS: Add Urine Microscopic? YES; Appearance Urine Clear (Clear); Bacteria Urine None Seen /hpf; Bilirubin Urine Negative (Negative); Blood Urine Negative (Negative); Color Urine Yellow (Yellow); Glucose Urine UA Negative (Negative); Ketones Urine Negative (Negative); Leukocyte Esterase Ur 1+ LEU/UL (Negative); Need Manual Microscopic Reviewed; Nitrate Urine Negative (Negative); Non Pathogenic Casts 0-2; Protein Urine Negative (Negative); RBC Urine 0-2 /hpf (0-2); Specific Grav Ur 1.008 (1.001-1.035); Squamous Epithelial Cell Urine None Seen /hpf (Few); Urobilinogen Urine 0.2 mg/dL (<2.0); WBC Urine 0-5 /hpf (0-3); pH Urine 7.5 (5.0-9.0)
[2024-10-04 14:13] LABS: Alanine Aminotransferase 16 U/L (6-35); Albumin Level 3.6 g/dL (3.5-5.1); Alkaline Phosphatase 170 U/L (38-126); Anion Gap 6 mmol/L (4-12); Aspartate Amino Transferase 20 U/L (14-36); Bilirubin,Total 0.2 mg/dL (0.2-1.3); Blood Urea Nitrogen 9 mg/dL (7-17); Calcium 9.8 mg/dL (8.4-10.2); Carbon Dioxide 20 mmol/L (22-30); Chloride 107 mmol/L (98-107); Estimated Glomerular Filt Rate > 60; Glucose 84 mg/dL (65-110); Potassium 3.9 mmol/L (3.4-5.0); Sodium 133 mmol/L (137-145); Total Protein 6.5 g/dL (6.3-8.2); Uric Acid 3.9 mg/dL (2.5-7.5)
[2024-10-04 14:15] VITALS: BP 121/78; PULSE 92
--- OUTSIDE RECORDS SUMMARY | 2024-10-04 14:30 | XMS_ITS | Clinical Summary ---
Author Organization [facility] Address [address] [place] [address] Care Team Providers Care Quality Control Representative Name Role Phone Elliot Ha MD Primary [...] on file Legal Sex Female 10:47 AM DECISION SUPPORT MANAGER Gender Identity Not on file Sexual Orientation [...] 10:50 AM CDT Height 160 cm (5' 2.99) 10/20/2023 10:50 AM CDT Body Mass Index [...] Regular Well Visit/Exam 18-64 2020 Influenza Vaccine (Season Ended) 2024 03/17/2019, 03/24/2017, 05/22/2016, Additional history exists DTaP/Tdap/Td Vaccine (8 - Td or Tdap) 05/26/2029 05/26/2019, 07/07/2012, 11/04/2006, Additional history exists Hepatitis B Screening Completed 2002 , 2002, 2002 Varicella Vaccines Completed 11/04/2006, 03/22/2003 HPV Vaccines Completed 05/31/2014, 07/2013, 10/20/[id number] [place] [facility] [id number] Advance Directives For more information, please contact: [phone] * Full Code (Latest Code Status on File) Date Activated Date Inactivated Comments 08/24/2019 7:48 PM 08/28/2019 8:52 PM Full CPR in c ase of cardiopulmonary arrest Care Teams Quality Control Representative Relationship Specialty Start Date End Date Elliot Ha MD [address] [place] [address] [address] [facility] [address] [place] [address] PCP - General Obstetrics and Gynecology 11/09/21
--- OUTSIDE RECORDS SUMMARY | 2024-10-04 14:30 | XMS_ITS | Clinical Summary ---
Author Organization [facility] Address [address] [place] [address] Care Team Providers Care Hvac Sales Engineer Name Role Phone Maria M Garza MD Unavailable [phone] Source Comments [facility],non-owned Affiliates and Associated Physician Practices is amultiple site organization consisting of ambulatory clinics and hospital sitesin [place], [place], [place] and [place]. This disclosure is being madepursuant to the Care Everywhere program and may not contain all information available regarding this patient. Last updated 18.[facility] Allergies No known active allergies Medications * [...] 08/20/2016 Assessment & Plan (03/10/2017 12:24 PM CONSERVATION ENFORCEMENT OFFICER): Headaches have improved and can further improve [...] on file Legal Sex Female 8:01 AM CONSERVATION ENFORCEMENT OFFICER Gender Identity Not on file Sexual Orientation [...] p er pcp Height 162.6 cm (5' 4) 01/15/2018 8:12 AM CDT p er pcp [...] patient's age to complete this topic Insurance [facility] [place] [id number] Care Teams Hvac Sales Engineer Relationship Specialty Start Date End Date Maria M Garza MD [address] [place] [address] Pediatrics 02/12/17
--- OUTSIDE RECORDS SUMMARY | 2024-10-04 14:30 | XMS_ITS | Referral Summary ---
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 Gender Identity Not on file Sexual Orientation [...] Plan of Treatment Not on file Insurance [address] [address] [facility] [place] [address] [facility] Advance Directives For more information, please contact: [phone] * Full Code (Latest Code Status on File) Date Activated Date Inactivated Comments 08/24/2019 7:48 PM 08/28/2019 8:52 PM Full CPR in c ase of cardiopulmonary arrest Care Teams Candy Spreader Helper Relationship Specialty Start Date End Date Elliot Ha MD [address] [facility] [address] [address] PCP - General Obstetrics and Gynecology 11/09/21
--- OUTSIDE RECORDS SUMMARY | 2024-10-04 14:30 | XMS_ITS | Encounter Summary ---
Author Organization [facility] Address [address] [facility] [place] [address] Care Team Providers Care Battery Assembler Name Role Phone Maria M Garza MD Unavailable [phone] Encounter Details Date Type Department Care Team (Late st Contact Info) Description 01/14/2019 Telephone [facility] Pediatrics - Neurology [address] [place] [id number] Uzma Ferro MD [address] [place] [id number] Social History Tobacco Use Types Packs/Day Years Used Date Smoking Tobacco: Never Assessed Comments No Sex and Gender Information Value Date Recorded Sex Assigned at Not on file Legal Sex Female 8:01 AM CREW FOREMAN Gender Identity Not on file Sexual Orientation [...] on filedocumented in this encounter Care Teams Battery Assembler Relationship Specialty Start Date End Date Maria M Garza MD [address] [place] [phone] Pediatrics 02/12/17 documented as of this encounter
--- OUTSIDE RECORDS SUMMARY | 2024-10-04 14:30 | XMS_ITS | Data Portability ---
Author Organization [facility] [place] Address [address] [place] [address] [place] [address] Assessment Encounter Date Assessment Date Assessment LastModified by Organization Details LastModified Time 09/07/2024 09/07/2024 Patient is __34_weeks . Discussed plan. [email or web address] Not available 09/07/2024 12:05:55 09/24/2024 09/24/2024 Patient is ___weeks . Discussed plan. [email or web address] Not available 09/24/2024 16:29:58 10/01/2024 10/01/2024 Patient is _37__weeks . Discussed plan. [email or web address] Not available 10/01/2024 12:31:58 Plan of Treatment Reminders Order Date Submit Date Provider Last Modified By Organization Details Last Modified Time Details Appointments OB ROUTINE 2024 10:00A Johny Baird CNM Not available Not available Not available INDUCTION 2024 05:00A Johny Baird CNM Not available Not available Not available Lab streptoco ccus group B, culture, unspecifi ed specimen 2024 025 [facility] (Lab), [address], [place], [address], 09/27/2024 15:53:23 Referral None recorded. Procedures None recorded. Surgeries None recorded. Imaging US, obstetric , follow-up 2024 025 [email or web address] [place], [address], [address], [place], [address], 09/23/2024 20:06:33 non-stres s test 2024 025 [email or web address] [place], [address], [address], [place], [address], 09/07/2024 14:15:00 Medication Orders None recorded. Patient TargetsNo targets recorded. Patient InstructionsNo instructions recorded. Reason for Referral None Reported. Results Created Date Observation Date Name Description Value Unit Range Abnormal Flag Note LastModifiedBy Organization Detail LastModifiedTime 09/25/1909/24/2024 CULTU RE: GROUP B STREP SCREE N, REFLE X SUSCE PTIBI LITY result report SEE RESULT S BELOW Test: Cultu re: Group B Strep , Refle x Susce ptibi lity ([facility]/ [facility]/K H/[facility] ) Speci men Sourc e: Vagin a/Rec carmel Speci men Type: Vagin al/Re ctal Speci men Date: 2024 1547 Resul t Date: 1449 Resul t Statu s: Final resul t Abnor mal: No Resul ting Lab: [facility] [address] [facility] [address] Tel: CULTU RE ----- ----- ----- --- No Group B strep isola ann at 2 days (patricia ctive broth enhan cemen t) Not Available [facility] (Lab) [address] [facility], [place], [address], 09/27/2024 15:53:23 08/28/19 25 08/27/2024 US, obste tric, follo w-up No observ ation record ed. [email or web address] [facility] [address], [place], [address], 08/27/2024 17:24:54 08/28/19 25 08/27/2024 US, obste tric, follo w-up No observ ation record ed. [email or web address] [address] [address], [place], [address], 09/03/2024 07:08:49 08/31/19 25 08/30/2024 non-s tress test No observ ation record ed. [address] [facility], [place], [address], 08/31/2024 09:17:33 09/01/19 25 08/31/2024 US, obste tric, limit ed No observ ation record ed. [address] [address], [place], [address], 09/01/2024 09:51:36 09/01/19 25 08/31/2024 non-s tress test No observ ation record ed. [address] [address], [place], [address], 09/01/2024 09:51:51 09/01/19 25 08/31/2024 US, renal No observ ation record ed. [address] [address], [place], [address], 09/01/2024 09:52:14 09/08/19 25 09/07/2024 non-s tress test No observ ation record ed. [email or web address] [place] [address], [place], [address], 09/07/2024 14:13:22 09/08/19 25 09/07/2024 non-s tress test No observ ation record ed. [email or web address] [place] [address], [place], [address], 09/07/2024 14:15:21 09/17/19 25 09/16/2024 non-s tress test No observ ation record ed. [address] [address], [place], [address], 09/16/2024 17:22:09 09/24/19 25 09/23/2024 US, obste tric, follo w-up No observ ation record ed. [email or web address] [place] [address], [place], [address], 09/23/2024 12:51:29 09/24/19 25 09/23/2024 US, obste tric, follo w-up No observ ation record ed. MEHRAN [address], [place], [address], 09/30/2024 16:10:37 Result Notes None recorded. Problems Name Problem SNOMED Code Status Onset Date Resolution Date Notes Provider Name and Address Organization Details Recorded Time Past pregnanc y history of pre-ecla mpsia 5728714630 Active Pearl Baird CNM [address], [place], [address], [facility] 5 15:18:04 Past pregnanc y history of pre-ecla mpsia 2499384490 Completed ASA, baseline pIH labs Krista griffiths, [facility] 3 16:50:12 Marijuan a user [id number] Completed encourag ed cessatio n Krista griffiths, [facility] 3 16:50:12 Cholesta sis 28181397 Completed Ursodiol 300mg BID, antenata l testing (pt declined 2x/wk), 37 wk delivery . Krista griffiths, [facility] 3 16:50:12 Pregnanc y 77400281 Active 2023 Paula griffiths, [facility] 4 12:45:34 Past pregnanc y history of pre-ecla mpsia 9409929429 Active Pearl Baird CNM [address], [place], [address], [facility] 5 15:18:03 Past pregnanc y history of cholesta sis in pregnanc y 3091541910 5236914 Active Pearl Baird, JAKI [address], [place], [address], [facility] 5 15:18:18 Placenta circumva llata 3686388 Active Rpt 32wk growth us Kerri Casillas null, [facility] 5 18:31:53 Problem Notes None recorded. Procedures Surgical History Date Name Laterality Status Provider Name and Address Organization Details Recorded Time 12/28/19 24 [facility] 09/24/2024 16:36:18 04/28/19 08 Tonsillectomy completed Pamleigh ann Mandujano [facility] 11/17/2021 10:53:53 Imaging Results None recorded. Procedure Notes None recorded. Medical Equipment None [...] completed Not Available Not Available Not Available Depo-Heating And Ventilating Worker a 150 mg/mL intramuscul ar syringe Inject 1 mL every 3 months by intramusc ular route. 12/25 completed Not Available Not Available Not Available azithromyci n 500 mg tablet TAKE 1 TABLET BY MOUTH EVERY DAY FOR 5 DAYS 03/13 completed Not Available Not Available Not Available FE .5 (28) 1.5 mg-30 mcg (21)/75 mg (7) tablet TAKE 1 TABLET BY MOUTH EVERY DAY 04/08 completed Not Available Not Available Not Available nitrofurant oin monohydrate /macrocryst als 100 mg capsule TAKE ONE CAPSULE BY MOUTH EVERY 12 HOURS FOR 7 DAYS, MUST TAKE WITH MEAL/FOOD 09/24 completed Not Available Not Available Not Available [...] Available Not Available Vitals Date Recorded Body height Body mass index (BMI) Body weight Body height Body mass index (BMI) Body weight Systolic blood pressure Diastolic blood pressure Systolic blood pressure Diastolic blood pressure Provider Name and Address Organization Details Last Updated DateTime 5 161.29 cm 33.8 kg/m2 39808.9 2 g 161.29 cm 33.8 kg/m2 47428.9 2 g 123 mm[Hg] 78 mm[Hg] 123 mm[Hg] 78 mm[Hg] Pam Mandujano [facility] 5 14:12:05 Date Recorded Body height Body mass index (BMI) Body weight Systolic blood pressure Diastolic blood pressure Provider Name and Address Organization Details Last Updated DateTime 09/24/2024 161.29 cm 35.4 kg/m2 31643.25 g 128 mm[Hg] 83 mm[Hg] Pam Mandujano [facility] 16:34:39 Date Recorded Body height Body mass index (BMI) Body weight Systolic blood pressure Diastolic blood pressure Provider Name and Address Organization Details Last Updated DateTime 10/01/2024 161.29 cm 36.3 kg/m2 07596.21 g 131 mm[Hg] 81 mm[Hg] Pam Mandujano [facility] 11:37:40 Social History Question Answer Notes LastModified by Organizat ion Details LastModified Time Tobacco Smoking Status Never Smoker Pam Mandujano [facility] 02/01/2022 16:49:42 Do You Have An Advance Directive? No [email or web address] Information n ot available 02/01/2022 If You Are , What Was Your Level Of Alcohol Consumption Prior To ? None [email or web address] Information not available 02/01/2022 Are You Blind Or Do You Have Difficulty Seeing? No [email or web address] Information n ot available 11/17/2021 What Is Your Level Of Caffeine Consumption? Occasional [email or web address] Information not available 11/17/2021 How Much Tobacco Do You Chew? None Information not available 02/01/2022 In The 14 Days Before Symptom Onset, Have You Had Close Contact With A Laboratory-confirm ed COVID-19 While That Case Was Ill? No [email or web address] Information n ot available 11/17/2021 In The 14 Days Before Symptom Onset, Have You Had Close Contact With A Person Who Is Under Investigation For COVID-19 While That Person Was Ill? No [email or web address] Information not available 11/17/2021 Have You Been To An Area Known To Be High Risk For COVID-19? No [email or web address] Information not available 11/17/2021 Are You Deaf Or Do You Have Serious Difficulty Hearing? No [email or web address] Information not available 11/17/2021 What Type Of Diet Are You Following? REGULAR [email or web address] Information n ot available 11/17/2021 What Is The Highest Grade Or Level Of School You Have Completed Or The Highest Degree You Have Received? [id number] [email or web address] Information not available 02/01/2022 Are There Any Guns Present In Your Home? No [email or web address] Information not available 02/01/2022 Do You Use Protection During Sex? No [email or web address] Information not available 02/01/2022 Do You Use Your Seat Belt Or Car Seat Routinely? Yes [email or web address] Information not available 11/17/2021 Do You Have Smoke And Carbon Monoxide Detectors In Your Home? Yes [email or web address] Information not available 11/17/2021 How Much Tobacco Do You Smoke? No [email or web address] Information not available 02/01/2022 Do You Use Sunscreen Routinely? No [email or web address] Information not available 02/01/2022 Has Tobacco Cessation Counseling Been Provided? No [email or web address] Information not available 02/01/2022 Have You Used IV Drugs? No [email or web address] Information not available 02/01/2022 Do You Have Difficulty Walking Or Climbing Stairs? No [email or web address] Information not available 02/01/2022 Sex: Unknown Functional Status Question Answer Note LastModified by Organizat ion Details LastModified Time Do you use any illicit or recreational drugs? No [email or web address] Information not available 11/17/2021 Do you or have you ever used any other forms of tobacco or nicotine? No [email or web address] Information not available 02/01/2022 What is your level of alcohol consumption? None [email or web address] Information not available 11/17/2021 Are you able to walk? YESWOREST Information not available 11/17/2021 Are you able to care for yourself? 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 No [email or web address] Information not available 02/01/2022 What is your exercise level? Occasional [email or web address] Information not available 11/17/2021 Mental Status Question Answer Note LastModified by Organization D etails LastModified Time Do you feel stressed (tense, restless, nervous, or anxious, or unable to sleep at night)? [id number] [email or web address] Information not available 11/17/2021 Family History Relationship Description Onset Age of this Age Resolved Age Notes LastModified by Organization Details LastModified Time Mother Anemia [email or web address] Not available 11/17/2021 10:52:02 Mother Hypercholest erolemia [email or web address] Not available 11/17 10:52:35 Mother Hypertensive disorder [email or web address] Not available 11/17 10:52:48 Father Diabetes mellitus [email or web address] Not available 11/17 10:52:18 Father Hypercholest erolemia [email or web address] Not available 11/17 10:52:34 Father Hypertensive disorder [email or web address] Not available 11/17 10:52:48 Paternal Grandmother Diabetes mellitus [email or web address] Not available 11/17 10:52:18 Medical History Condition [...] SNOMED-CT Code Diagnosis ICD10 Code Diagnosis Note [id number] Jean Marie Hinojosa MD [place] [address] [address] 11/09/2021 14:18:48 11/09/2021 14:41:59 [id number] [facility] [address] [place] [address] 11/09/2021 14:20:09 11/09/2021 15:44:45 Amenorrhea 79932170 N91.2 [facility] 784745529 R42 [id number] Dariana Carrillo MD [place] [address] [place] [address] 12/04/2021 13:53:51 12/05/2021 15:38:07 Routine care 445759356 Z34.92 Past pregn coleman history of pre-eclampsia 0655623949 53994 Z87.59 [id number] Dariana Carrillo MD [place] [address] [place] [address] 01/02/2022 12:26:49 01/02/2022 13:54:06 screening 523353858 Z36.3 [id number] Dariana Carrillo MD [place] [address] [place] [address] 01/02/2022 14:06:12 01/02/2022 17:33:41 Past history of pre-eclampsia 8068065813 60032 Z87.59 Routine an tenatal care 488828594 Z34.92 [id number] [facility] [address] [place] [address] 02/01/2022 16:40:05 02/01/2022 17:06:56 Routine care 253161640 Z34.82 [id number] [facility] [address] [address] 02/27/2022 17:42:24 02/27/2022 18:31:11 Routine care 283941585 Z34.82 [id number] Jean Marie Hinojosa MD [place] [address],[place] [address] 03/12/2022 16:55:31 03/12/2022 18:25:20 Pre-existing maternal disease complicating 1338036848 6106 O99.891 Z87.59 Z3A.30 [id number] [facility] [address] [address] 03/13/2022 14:43:32 03/13/2022 16:31:10 Routine care 057429801 Z34.82 [id number] Jean Marie Hinojosa MD [place] [address] [address] 03/13/2022 15:53:42 03/13/2022 16:27:55 Cholestasis of 017824574 O26.619 [id number] Jean Marie Hinojosa MD [place] [address] [address] 03/27/2022 15:23:11 03/27/2022 16:17:35 Cholestasis of 539749849 O26.619 [id number] Jean Marie Hinojosa MD [place] [address],[place] [address] 03/27/2022 15:24:22 03/27/2022 16:48:54 Cholestasis of 666532337 O26.619 Z3A.32 [id number] Pearl Baird [facility] [address],[place] [address] 03/27/2022 15:24:48 03/27/2022 16:59:29 Routine care 799269494 Z34.82 [id number] Jean Marie Hinojosa MD [place] [address] [address] 04/03/2022 15:28:56 04/03/2022 18:26:11 Cholestasis of 438339042 O26.613 Z3A.33 [id number] MD Ciarra Benz [address] [address] 04/03/2022 15:29:10 04/03/2022 16:58:25 Cholestasis of 564724430 O26.613 Z3A.33 [id number] Pearl Baird [facility] [address],[place] [address] 04/03/2022 15:29:26 04/05/2022 15:54:27 Routine care 224426834 Z34.82 [id number] MD Ciarra Benz [address],[place] [address] 04/10/2022 14:51:05 04/10/2022 16:04:51 Cholestasis of 359236910 O26.613 Z3A.33 [id number] MD Ciarra Benz [address] [address] 04/10/2022 14:51:45 04/11/2022 12:28:23 Cholestasis of 611964527 O26.613 Z3A.34 [id number] Pearl Baird [facility] [address],[place] [address] 04/10/2022 14:52:27 04/10/2022 16:49:29 Routine care 132736033 Z34.82 [id number] Jean Marie Hinojosa MD [place] [address] [address] 04/17/2022 15:53:36 04/17/2022 17:56:04 Cholestasis of 102973874 O26.613 Z3A.34 [id number] MD Ciarra Benz [address] [address] 04/17/2022 15:54:33 04/17/2022 17:02:11 Cholestasis of 595394419 O26.613 Z3A.35 [id number] [facility] [address] [address] 04/17/2022 15:54:48 04/17/2022 17:25:33 [id number] Jean Marie Hinojosa MD [place] [address] [address] 04/24/2022 11:34:28 04/24/2022 12:40:52 Cholestasis of 301773743 O26.613 Z3A.35 [id number] Pearl Baird [facility] [address],[place] [address] 04/24/2022 11:35:25 04/24/2022 12:42:22 Routine care 639327812 Z34.82 [id number] Pearl Baird [facility] [address],[place] [address] 05/29/2022 13:47:05 05/29/2022 15:17:42 care 077242360 Z39.2 Contracept ion care management 571488826 Z30.9 if desires depo may have with menstrual cycle, reviewed phexxi, rx to pharmacy f/u wwe in 6 mo [id number] Pearl Baird [facility] [address] [place] [address] 06/26/2022 17:59:55 06/27/2022 11:43:26 Contraception care management 865462655 Z30.9 if desires depo may have with menstrual cycle, f/u 3 mo [id number] [facility] [address] [place] [address] 06/26/2022 18:36:02 06/27/2022 11:39:45 Contraception care management 889232778 Z30.9 Contraception care 14003 5005 Z30.40 [id number] [facility] [address],[place] [address] 08/16/2022 12:28:47 08/16/2022 14:12:58 Contraception care management 412895287 Z30.9 discussed options, condoms, vasectomy, pt declines rx f/u wwe [id number] [facility] [address],[place] [address] 11/13/2022 12:04:30 11/13/2022 12:26:02 Amenorrhea 14089194 N91.2 cont to monitor, may be deferred due to depoprover a Gynecologi c examination 00734185 Z01.419 ok for refills of phexxi if needed, 2 sample packs given Abdominal pain 60756293 R10.9 labs ordered, [id number] [facility] [address],[place] [address] 12/25/2022 17:46:58 12/26/2022 12:25:36 Irregular periods 36659258 N92.6 continue to monitor Vaginitis 33659612 N76.0 culture sent, rec daily probiotic, if normal can consider boric acid [id number] GREG MILLER MD [place] [address],[place] [address] 01/24/2023 13:39:22 01/27/2023 11:42:21 Abnormal uterine bleeding 7368923104 9100 N93.9 - amenorrhei c from May [...] decides what she would like to do [id number] RAN Luu [place] [address] [address] 02/28/2023 10:07:52 02/28/2023 11:08:03 Abnormal uterine bleeding 6925638631 9100 N93.9 symptoms have resolvedUP T done [...] review of plan of care. Urinary symptoms 2425183 08 R39.9 Vulval irritation 336634 003 N90.89 Venereal d isease screening 138889862 Z11.3 [id number] [facility] [address] [address] 05/02/2023 15:22:13 05/02/2023 16:02:54 Irregular periods 76294565 N92.6 continue to monitor, disc side effects risks and benefits including blood clot, stroke, mi, will take for 3-6 mo f/u med check in 3 months [id number] Jean Marie Hinojosa MD [place] [address] [address] 04/08/2024 11:04:41 04/08/2024 11:44:37 screening 253622413 Z36.82 Z3A.12 [id number] Jean Marie Hinojosa MD [place] [address],[place] [address] 04/08/2024 11:05:24 04/08/2024 15:20:08 Routine care 724210446 Z34.90 [id number] Pearl Baird CNM [place] [address] [address] 05/07/2024 15:52:04 05/07/2024 16:37:59 Gestation period, 16 weeks 16932891 Z3A.16 [id number] Jean Marie Hinojosa MD [place] [address] [address] 06/11/2024 11:05:09 06/11/2024 12:02:43 screening for malformation 287123991 Z36.3 Z3A.21 [id number] Pearl Baird CNM [place] [address] [address] 06/11/2024 11:05:24 06/11/2024 12:37:08 Gestation period, 21 weeks 25257092 Z3A.21 continue vitamin [id number] Jean Marie Hinojosa MD [place] [address] [address] 07/09/2024 15:29:47 07/12/2024 07:57:24 Placenta circumvallata 4157262 O43.112 Z3A.25 [id number] [facility] [address] [address] 07/09/2024 15:30:05 07/12/2024 10:36:21 Gestation period, 25 weeks 04124792 Z3A.25 continue vitamin [id number] Jean Marie Hinojosa MD [place] [address] [address] 08/06/2024 11:58:38 08/06/2024 13:44:38 Placenta circumvallata 3099860 O43.112 Z3A.29 [id number] [facility] [address] [address] 08/06/2024 12:00:07 08/06/2024 13:44:19 Gestation period, 29 weeks 07040466 Z3A.29 [id number] Jean Marie Hinojosa MD [place] [address] [address] 08/27/2024 11:33:52 08/27/2024 13:43:29 Past history of pre-eclampsia 2123632212 81268 O09.299 O43.113 Z3A.32 [id number] [facility] [address] [address] 08/27/2024 11:34:06 08/27/2024 13:38:01 Gestation period, 32 weeks 5216869 Z3A.32 Past pregn coleman history of pre-eclampsia 3040307816 69318 O09.299 [id number] [facility] [address] [address] 09/07/2024 11:26:26 09/07/2024 12:07:12 Gestation period, 34 weeks 66161948 Z3A.34 cont pnv [id number] [facility] [address] [address] 09/07/2024 14:10:50 09/07/2024 14:15:00 Reduced movement 849309690 O36.8130 [id number] Jean Marie Hinojosa MD [place] [address] [address] 09/23/2024 11:02:31 09/23/2024 11:38:48 Placenta circumvallata 1401778 O43.113 O09.293 Z3A.36 [id number] [facility] [address] [address] 09/24/2024 16:15:37 09/24/2024 17:23:56 screening 186530784 Z36.85 Gestation period, 36 weeks 42335201 Z3A.36 [id number] [facility] [address] [address] 10/01/2024 10:54:43 10/01/2024 14:10:28 Gestation period, 37 weeks 71088212 Z3A.37 Health Concerns Section Related Observation LastModified by Organization Detai ls LastModified Time None Recorded Concern Status LastModified by Organization Details LastModified Time None Recorded Advance Directives Directive N: Payers Encounter Date Sequence Insurance Name Policy Number Policy Lockhart Covered Member ID Lockhart Member ID Guarantor Name 09/07/2024 1 [facility]) [id number] Caro Wilkes [id number] Caro Wilkes 09/07/2024 1 [facility]) [id number] Caro Johny Chung [id number] Caro Chung 09/23/2024 1 [facility]) [id number] Caro Johny Chung [id number] Caro Chung 09/24/2024 1 [facility]) [id number] Caro Johny Chung [id number] Caro Chung 10/01/2024 1 [facility] [id number] Caro Johny Chung [id number] [facility] OBG[facility] Episode Ob Episode Information Episode Created Date Number of Fetuses Patient Bloodtype Patient rh Status Prepregnancy Weight lbs Domestic Partner Domestic Partner Phone Father Name Cooking Appliance Repair Technician Status 11/18/19 22 1 CLOSED Fetus Data First Name Last Name Admitted to NICU Weight (g) Sex Living Outcome Pediatric Complications Fetus ID Race Codes Race Delivery Type 2919.77 1704 F Full Term 97736 Vaginal Delivery Yvon Calculation Initial Yvon Date [...] Domestic Partner Domestic Partner Phone Father Name Cooking Appliance Repair Technician Status 12/05/19 22 1 A Positive 163 CLOSED Fetus Data First Name Last Name Admitted to NICU Weight (g) Sex Living Outcome Pediatric Complications Fetus ID Race Codes Race Delivery Type 2976.69 75 M true Full Term 40261 Vaginal Delivery Problems Problem Notes wants placenta attached to h er baby until after she is discharged from hospital- i told her hell no since she already hates doctors (ATD)04/03 [facility] WNL Problem Name Start Date End Date Resolution Snomed Code Not e Past history of pre-eclampsia [id number] ASA, baseli ne pI labs Marijuana user [id number] encou raged cessation Cholestasis 95539543 Ursodiol 300mg BID, testing (pt declined 2x/wk), [...] Date Ultra Sound Latest Days Gestation 0 [email or web address] 12/04/2021 05/19/19 23 0 Pre- Flowsheet Flowsheet [...] Weight in lbs Pre/Post Dialysis Refused Weight 167.516440459057 BP Diastolic BP Location Tested BP Systolic [...] discussed both that obed not available at [place], nor at most hospitals because of the infection risk and no benefits to baby once the placenta detaches. 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] Weight in lbs Pre/Post Dialysis Refused Weight 207.350800094260 BP Diastolic BP Location Tested BP Systolic [...] Weight in lbs Pre/Post Dialysis Refused Weight 202.716395893384 BP Diastolic BP Location Tested BP Systolic [...] Weight in lbs Pre/Post Dialysis Refused Weight 209.728532677970 BP Diastolic BP Location Tested BP Systolic [...] Weight in lbs Pre/Post Dialysis Refused Weight 197.651332333289 BP Diastolic BP Location Tested BP Systolic [...] Weight in lbs Pre/Post Dialysis Refused Weight 195.515526140425 BP Diastolic BP Location Tested BP Systolic BP Type 81 125 Fetus Heart Rate Present Fetus Movement Comments Flowsheet Date 08/16/2022 Nassar Score Blood Edema Fundus Height Fundus Units Glucose Ketones Leukocytes Nitrite Labor Signs Protein Cervic Dilation Cervic Effacement Cervic Station Type Weight in lbs Pre/Post Dialysis Refused Weight 189.814091970505 BP Diastolic BP Location Tested BP Systolic [...] Estim ated Date of Delivery false Thalassemia (Australian, Salvadorean, Mediterranean, Or Background): MCV < 80 false Neural Tube Defect (Meningomyelocele, Spina Bifi da, Or Anencephaly) false Congenital Heart Defect false Down Syndrome false Terrence-Sachs (eg, Adventism, Cajun, Upper Sorbian-Escanaba) f alse Landon Disease false Sickle Cell Disease Or Trait () false Hemophilia Or Other Blood Disorders false Muscular Dystrophy false Cystic Fibrosis false Wilkes's Chorea false Intellectual Disability/Autism false If Yes, [...] Domestic Partner Domestic Partner Phone Father Name Cooking Appliance Repair Technician Status 11/18/19 22 1 CLOSED Fetus Data First Name Last Name Admitted to NICU Weight (g) Sex Living Outcome Pediatric Complications Fetus ID Race Codes Race Delivery Type , Spontane ous [id number] Yvon Calculation Initial Yvon Date Initial Exam [...] Domestic Partner Domestic Partner Phone Father Name Cooking Appliance Repair Technician Status 11/18/19 22 1 DELETED Yvon Calculation [...] Domestic Partner Domestic Partner Phone Father Name Cooking Appliance Repair Technician Status 11/18/19 22 1 CLOSED Fetus Data First Name Last Name Admitted to NICU Weight (g) Sex Living Outcome Pediatric Complications Fetus ID Race Codes Race Delivery Type , Spontane ous [id number] Yvon Calculation Initial Yvon Date Initial Exam Date Initial Exam Provider Initial Ultrasound Date Last Menstrual Period Date Ultra Sound Weeks Gestation 0 Eighteen To Twenty Week Yvon Update Ultra Sound Date Fundal Height At Umbil Quickening Date Ultra Sound Latest Weeks Gestation Final Vyon Confirmed By Final Yvon Confirmed Date Final [...] Domestic Partner Domestic Partner Phone Father Name Cooking Appliance Repair Technician Status 04/08/20 24 1 A Positive 167 Jvion Tyler OPEN Fetus Data First Name Last Name Admitted to NICU Weight (g) Sex Living Outcome Pediatric Complications Fetus ID Race Codes Race Delivery Type [id number] Problems Problem Notes Problem Name Start Date End Date Resolution Snomed Code Not e Past history of cholestasis in [id number] Past history of pre-eclampsia [id number] 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 Rpt 32wk growth us Yvon Calculation Initial Yvon Date Initial Exam Date Initial Exam Provider Initial Ultrasound Date Last Menstrual Period Date Ultra Sound Weeks Gestation 04/08/2024 [email or web address] 04/08/2024 01/12/2024 12 Eighteen To Twenty Week [...] Weight in lbs Pre/Post Dialysis Refused Weight 140.663453971283 BP Diastolic BP Location Tested BP Systolic [...] Type Weight in lbs Pre/Post Dialysis Refused 147.385376354400 BP Diastolic BP Location Tested BP Systolic [...] Type Weight in lbs Pre/Post Dialysis Refused 148.410956014514 BP Diastolic BP Location Tested BP Systolic [...] Type Weight in lbs Pre/Post Dialysis Refused 165.843961827168 BP Diastolic BP Location Tested BP Systolic [...] Weight in lbs Pre/Post Dialysis Refused Weight 179.862713750679 BP Diastolic BP Location Tested BP Systolic [...] Type Weight in lbs Pre/Post Dialysis Refused 186.499066632889 BP Diastolic BP Location Tested BP Systolic BP Type 68 115 Fetus Heart Rate Present Fetus Movement A Yes Comments Patient is having contractio n, discharge, swelling, heartburn and acid reflux. reviewed us, precautions and education efw 43% call for preadmit f/u 2 weeks Flowsheet Date 09/07/2024 Nassar Score Blood Edema Fundus Height Fundus Units Glucose Ketones Leukocytes Nitrite Labor Signs Protein Cervic Dilation Cervic Effacement Cervic Station neg trace Type Weight in lbs Pre/Post Dialysis Refused Weight 194.241325871802 BP Diastolic BP Location Tested BP Systolic BP Type 78 123 Fetus Heart Rate Present Fetus Movement A Yes Comments Patient is having contractio ns, cramping, pain, swelling and nausea. NST for decreased movement precautions and education plan gbs at 36 weeks f/u 2 weeks Flowsheet Date 09/07/2024 Nassar Score Blood Edema Fundus Height Fundus Units Glucose Ketones Leukocytes Nitrite Labor Signs Protein Cervic Dilation Cervic Effacement Cervic Station Type Weight in lbs Pre/Post Dialysis Refused Weight 194.964616995705 BP Diastolic BP Location Tested BP Systolic BP Type 78 123 Fetus Heart Rate Present Fetus Movement Comments Flowsheet Date 09/23/2024 Nassar Score Blood Edema Fundus Height Fundus Units Glucose Ketones Leukocytes Nitrite Labor Signs Protein Cervic Dilation Cervic Effacement Cervic Station Type Weight in lbs Pre/Post Dialysis Refused BP Diastolic BP Location Tested BP Systolic BP Type Fetus Heart Rate Present Fetus Movement Comments Flowsheet Date 09/24/2024 Nassar Score Blood Edema Fundus Height Fundus Units Glucose Ketones Leukocytes Nitrite Labor Signs Protein Cervic Dilation Cervic Effacement Cervic Station neg none Type Weight in lbs Pre/Post Dialysis Refused Weight 203.438512009526 BP Diastolic BP Location Tested BP Systolic BP Type 83 128 Fetus Heart Rate Present A 150 Fetus Movement A Yes Comments Patient is having sone dizzy ness, lightheaded, discharge and nausea. +FM, considering 39 weeks IOL, precautions and education reviewed, gbs collected f/u one week Flowsheet Date 10/01/2024 Nassar Score Blood Edema Fundus Height Fundus Units Glucose Ketones Leukocytes Nitrite Labor Signs Protein Cervic Dilation Cervic Effacement Cervic Station neg none 1cm Type Weight in lbs Pre/Post Dialysis Refused Weight 208.348020736654 BP Diastolic BP Location Tested BP Systolic BP Type 81 131 Fetus Heart Rate Present A 145 Fetus Movement A Yes Comments Patient states that is havin g some contractions, swelling, nausea and vomiting. +FM education and precautions would like IOl 10/12 scheduled for 629 f/u one week Menstrual History Last Menstrual Date Menses Monthly [...]
--- OUTSIDE RECORDS SUMMARY | 2024-10-04 14:30 | XMS_ITS | Encounter Summary ---
Author Organization [facility] Address [address] [place] [address] Phone Care Team Providers Care Outside Sales Engineer Name Role Phone An Ace Primary Care Provider + Shilpi Fatima APRN, CLINICAL RESEARCH MONITOR Unavailable Reji Deal MD Unavailable [phone] Abimael Grimes MD Unavailable Encounter Details Date Type Department Care Team (Late st Contact Info) Description 03/03/2024 [facility]cribe [facility] [address] [place] [address] Alessandra Helm V, SOLE POLISHER, CLINICAL RESEARCH MONITOR [address] [facility] [address] [address] Encounter for supervision of normal , antepartum, unspecified (Primary Dx) Social History Tobacco Use Types Packs/Day Years Used Date Smoking Tobacco: Never Smokeless Tobacco: Never Alcohol Use Standard Drinks/Week Comments Never 0 (1 standard drink = 0.6 oz pur e alcohol) [facility] Utilities Answer Date Recorded In the past 12 months has [employer], oil, or water Pl[employer] threatened to shut off services in your home? Patient declined 01/02/2024 Social Connection and Isolation Panel Answer Date Recorded In a typical week, how many times do you talk on the phone with family, friends, or neighbors? More than three times a week 10/22/2023 How often do you get togethe r with friends or relatives? Once a week 10/22/2023 How often do you attend chur ch or spiritism services? Patient declined 10/22/2023 Do you belong to any clubs o r organizations such as muslim groups, unions, fraternal or athletic groups, or [...] medical care, and heating? Somewhat hard 10/22/2023 [employer] [facility] Occupat ional Health - Occupational Stress [...] any time in the past 12 m [facility], were you homeless or living in a snf (including now)? Patient declined 01/02/2024 Comments Yes Sex and Gender Information Value Date Recorded Sex Assigned at Not on file Legal Sex Female 11:31 PM CDT Gender Identity Not on file Sexual Orientation Not on file documented as of this encounter Plan of Treatment Not on file documented as of this encounter Results * (ABNORMAL) HCG BETA SUBUNIT SERUM QUANT (03/19/2024 3:18 PM CARPET JOURNEYMAN) HCG BETA SUBUNIT, QUANT 152,715.72 (H) 0.00 - 5.00 mIU/mL 03/19/2024 5:50 PM CARPET JOURNEYMAN [facility] Blood Venipuncture / Unknown 03/19/2024 3:18 PM CARPET JOURNEYMAN 03/19/2024 5:03 PM CARPET JOURNEYMAN Narrative [facility] - 03/19/2024 5:50 PM CARPET JOURNEYMAN HCG levels should be interpreted with consideration [...] with a urine hCG. Alessandra Gabriel APRN, CLINICAL RESEARCH MONITOR CHEMISTRY ORDERABLES Final Result [facility] [address] [place] [address] documented in this encounter Visit Diagnoses Diagnosis Encounter for supervision of normal , antepartum, unspecified - Primary documented in this encounter Care Teams Outside Sales Engineer Relationship Specialty Start Date End Date An Ace PAC [address] [place] [address] PCP - General Physician Third Steel Pourer 01/16/23 Shilpi Fatima APRN, CLINICAL RESEARCH MONITOR [address] [place] [address] Nurse Practitioner Advanced Practice Nurse 02/13/23 Reji Deal MD [address] [place] [phone] Consulting Physician Neurology 07/18/23 Abimael Grimes MD [address] [phone] Consulting Physician General Surgery 12/12/23 documented as of this encounter
--- OUTSIDE RECORDS SUMMARY | 2024-10-04 14:30 | XMS_ITS | Encounter Summary ---
Author Organization [facility] Address [address] [place] [address] Phone Care Team Providers Care Correspondence Representative Name Role Phone An Ace PAC Primary Care Provider + Shilpi Fatima APRN, CHART CALCULATOR Unavailable Reji Deal MD Unavailable Abimael Grimes MD Unavailable Encounter Details Date Type Department Care Team (Late st Contact Info) Description 04/19/2024 [facility] [address] [place] [address] An Ace, PAC [address] [place] [address] Social History Tobacco Use Types Packs/Day Years Used Date Smoking Tobacco: Never Smokeless Tobacco: Never Alcohol Use Standard Drinks/Week Comments Never 0 (1 standard drink = 0.6 oz pur e alcohol) [facility] Utilities Answer Date Recorded In the past [...] any clubs o r organizations such as moravian groups, unions, fraternal or athletic groups, or [...] medical care, and heating? Somewhat hard 10/22/2023 [facility] Occupat ional Health - Occupational [...] in the past 12 m [facility], were you homeless or living in a long term (including now)? Patient declined 01/02/2024 Comments Yes Sex and Gender Information Value Date Recorded Sex Assigned at Not on file Legal Sex Female 11:31 PM CDT Gender Identity Not on file Sexual Orientation Not on file documented as of this encounter Plan of Treatment Not on file documented as of this encounter Visit Diagnoses Not on filedocumented in this encounter Care Teams Correspondence Representative Relationship Specialty Start Date End Date An Ace PAC [address] [place] [address] PCP - General Physician Program Management Intern 01/16/23 Shilpi Fatima APRN, CHART CALCULATOR [address] [place] [address] Nurse Practitioner Advanced Practice Nurse 02/13/23 Reji Deal MD [address] [place] [address] Consulting Physician Neurology 07/18/23 Abimael Grimes MD [address] [address] Consulting Physician General Surgery 12/12/23 documented as of this encounter
--- OUTSIDE RECORDS SUMMARY | 2024-10-04 14:30 | XMS_ITS | Clinical Summary ---
Author Organization [facility] Address [address] [place] [address] Phone Care Team Providers Care Food Preservation Scientist Name Role Phone An Ace Primary Care Provider + Shilpi Fatima APRN, NEONATOLOGIST Unavailable Reji Deal MD Unavailable [phone] Abimael Grimes MD Unavailable Allergies No known [...] Description 07/28/2024 8:30 AM CDT [facility] [address] [place] [address] An Ace PAC Hamilton, Kirstin E, PT Chronic left-sided low back pain, unspecified whether sciatica present (Primary Dx); Weakness; Abnormal posture Discharge Disposition: Discharged to home or Selfcare 07/28/2024 Travel 07/23/2024 [facility]phone [facility] [address] [place] [address] Madhavi Ferraro, PT Transportation Issues 07/14/2024 8:30 AM CDT Physical [facility] [address] [place] [address] An Ace PAC Hamilton, Kirstin E, PT Chronic left-sided low back pain, unspecified whether sciatica present (Primary Dx); Weakness; Abnormal posture Discharge Disposition: Discharged to home or Selfcare 07/14/2024 Travel 07/09/2024 9:15 AM CDT Physical Therapy [facility] [address] [place] [address] An Ace PAC Hamilton, Kirstin E, PT Chronic left-sided low back pain, unspecified whether sciatica present (Primary Dx); Weakness; Abnormal posture Discharge Disposition: Discharged to home or Selfcare 07/09/2024 Travel 07/07/2024 Telephone [facility] [address] [place] [address] Madhavi Ferraro, PT No Show (1st NSNC- patient came to her appointment 15 minutes late) from Last 3 Months Immunizations Immunization Administration [...] drink = 0.6 oz pur e alcohol) [facility] Utilities Answer Date Recorded In the past 12 months has [employer], gas, oil, or water [employer] threatened to shut off services in your [...] week 10/22/2023 How often do you attend [facility] or restorationist services? Patient declined 10/22/2023 Do you belong to any clubs o r organizations such as hoahaoism groups, unions, fraternal or athletic groups, or [...] Total Score - Questions 1-9 0 04/29 [facility] of Occupat ional Health - [...] declined 01/02/2024 Housing Stability Vital Sign Answer Dl e Recorded In the last 12 months, was t here a time when you were not able to pay the mortgage or rent on time? Patient declined 01/02/20 24 In the past 12 months, how m any times have you moved where you were living? 0 01/02/2024 At any time in the past [address] [facility], were you homeless or living in a fpc (including now)? Patient declined 01/02/2024 Comments Yes Sex and Gender Information Value Date Recorded Sex Assigned at Not on file Legal Sex Female 11:31 PM CDT Gender Identity Not on file Sexual Orientation Not on file Last Filed Vital Signs Vital Sign Reading Time Taken Comments Blood Pressure 110/62 05/24/2024 11:23 AM MANAGER SALES SUPPORT Pulse 83 05/24/2024 11:23 AM MANAGER SALES SUPPORT Temperature 37 C (98.6 F) 05/24/2024 11:23 AM MANAGER SALES SUPPORT Respiratory Rate 18 02/29/2024 5:45 PM MANAGER SALES SUPPORT Oxygen Saturation 100% 05/24/2024 11:23 AM MANAGER SALES SUPPORT Inhaled Oxygen Concentration - - Weight 67.6 kg (149 lb) 05/24/2024 11:23 AM MANAGER SALES SUPPORT Height 162.6 cm (5' 4) 05/24/2024 11:23 AM MANAGER SALES SUPPORT Body Mass Index 25.58 05/24/2024 11:23 AM MANAGER SALES SUPPORT Plan of Treatment Health Maintenance Due Date [...] measures to stabilize the patient. Care Teams Food Preservation Scientist Relationship Specialty Start Date End Date An Ace PAC [address] [place] [address] PCP - General Physician Intake Manager 01/16/23 Shilpi Fatima APRN, NEONATOLOGIST [address] [place] [address] Nurse Practitioner Advanced Practice Nurse 02/13/23 Reji Deal MD [address] [place] [phone] Consulting Physician Neurology 07/18/23 Abimael Grimes MD [address] [phone] Consulting Physician General Surgery 12/12/23
[2024-10-04 14:31] VITALS: BP 128/72; PULSE 109
[2024-10-04 14:57] VITALS: BP 122/77; PULSE 107
== END 2024-10-04 14:40 | disposition home or self-care (01) ==
LOC: ANHOBOP 13:17 → ANHLDR 13:19
PROVIDERS: Obstetrics & Gynecology; Visit Provider Advanced Practice Midwife
DX: O13.9 Gestational [pregnancy-induced] hypertension without significant proteinuria, unspecified trimester (principal); Z3A.00 Weeks of gestation of pregnancy not specified
CPT/HCPCS: 36415; 59025; 80053; 81001; 82570; 84156; 84550; 85025; 87086; 99199

== ENCOUNTER 2024-10-06 05:43 | Outpatient (CLI) | payer OTHER, SELFPAY ==
[2024-10-06] VITALS (29 sets, daily range): BP systolic 111–127; BP diastolic 65–93; PULSE 57–161; O2SAT 81–100; BMI 35.7
--- OUTSIDE RECORDS SUMMARY | 2024-10-06 05:50 | XMS_ITS | Encounter Summary ---
Author Organization [facility] Address [address] [place] [address] Phone Care Team Providers Care Environmental Studies Faculty Member Name Role Phone An Ace Primary Care Provider + Shilpi Fatima APRN, FLAKE DRIER Unavailable Reji Deal MD Unavailable Abimael Grimes MD Unavailable Encounter Details Date Type Department Care Team (Late st Contact Info) Description 03/03/2024 [facility] [address] [place] [address] Alessandra Helm V, MOLDING LINE ASSISTANT, FLAKE DRIER [address] [facility] [address] [address] Encounter for supervision of normal , antepartum, unspecified (Primary Dx) Social History Tobacco Use Types Packs/Day Years Used Date Smoking Tobacco: Never Smokeless Tobacco: Never Alcohol Use Standard Drinks/Week Comments Never 0 (1 standard drink = 0.6 oz pur e alcohol) [facility] Utilities Answer Date Recorded In the past 12 months has [email or web address], oil, or water [employer] threatened to shut off services in your [...] often do you attend chur ch or presybeterian services? Patient declined 10/22/2023 Do you belong to any clubs o r organizations such as roman catholic groups, unions, fraternal or athletic groups, or [...] medical care, and heating? Somewhat hard 10/22/2023 [facility] of Occupat ional Health - Occupational Stress [...] any time in the past 12 m [facility], were you homeless or living in [...] BETA SUBUNIT SERUM QUANT (03/19/2024 3:18 PM COMPOUND SPECIALIST) HCG BETA SUBUNIT, QUANT 152,715.72 (H) 0.00 - 5.00 mIU/mL 03/19/2024 5:50 PM COMPOUND SPECIALIST [facility] Blood Venipuncture / Unknown 03/19/2024 3:18 PM COMPOUND SPECIALIST 03/19/2024 5:03 PM COMPOUND SPECIALIST Narrative [facility] - 03/19/2024 5:50 PM COMPOUND SPECIALIST HCG levels should be interpreted with consideration [...] with a urine hCG. Alessandra Gabriel APRN, FLAKE DRIER CHEMISTRY ORDERABLES Final Result [facility] [address] [place] [address] documented in this encounter Visit Diagnoses Diagnosis Encounter for supervision of normal , antepartum, unspecified - Primary documented in this encounter Care Teams Environmental Studies Faculty Member Relationship Specialty Start Date End Date An Ace PAC [address] [place] [address] PCP - General Physician Senior Director Of Strategy 01/16/23 Shilpi Fatima APRN, FLAKE DRIER [address] [place] [address] Nurse Practitioner Advanced Practice Nurse 02/13/23 Reji Deal MD [address] [place] [phone] Consulting Physician Neurology 07/18/23 Abimael Grimes MD [address] [phone] Consulting Physician General Surgery 12/12/23 documented as of this encounter
--- OUTSIDE RECORDS SUMMARY | 2024-10-06 05:50 | XMS_ITS | Clinical Summary ---
Author Organization [facility] Address [address] [place] [place] [address] Care Team Providers Care Marine Equipment Test Engineer Name Role Phone Maria M Garza MD Unavailable [phone] Source Comments [facility],non-owned Affiliates and Associated Physician Practices is amultiple site organization consisting of ambulatory clinics and hospital sitesin [place], [place], [place] and [place]. This disclosure is being madepursuant to the Care Everywhere program and may not contain all information available regarding this patient. Last updated 18.[facility] Allergies No known active allergies Medications * [...] 08/20/2016 Assessment & Plan (03/10/2017 12:24 PM INTERIOR DESIGN INSTRUCTOR): Headaches have improved and can further improve [...] on file Legal Sex Female 8:01 AM INTERIOR DESIGN INSTRUCTOR Gender Identity Not on file Sexual Orientation [...] patient's age to complete this topic [place] [id number] Care Teams Marine Equipment Test Engineer Relationship Specialty Start Date End Date Maria M Garza MD [address] [place] [address] Pediatrics 02/12/17
--- OUTSIDE RECORDS SUMMARY | 2024-10-06 05:50 | XMS_ITS | Referral Summary ---
Author Organization [facility] Address [address] [place] [address] Care Team Providers Care Dispatcher Maintenance Service Name Role Phone Elliot Ha MD Primary [...] on file Legal Sex Female 10:47 AM ORACLE ERP ARCHITECT Gender Identity Not on file Sexual Orientation [...] Plan of Treatment Not on file [place] [address] [address] [facility] [place] [address] [facility] Advance Directives For more information, please contact: [phone] * Full Code (Latest Code Status on File) Date Activated Date Inactivated Comments 08/24/2019 7:48 PM 08/28/2019 8:52 PM Full CPR in c ase of cardiopulmonary arrest Care Teams Dispatcher Maintenance Service Relationship Specialty Start Date End Date Elliot Ha MD [address] [facility] [address] [address] PCP - General Obstetrics and Gynecology 11/09/21
--- OUTSIDE RECORDS SUMMARY | 2024-10-06 05:50 | XMS_ITS | Clinical Summary ---
Author Organization [facility] Address [address] [place] [address] Care Team Providers Care Financial Systems Director Name Role Phone Elliot Ha MD [...] on file Legal Sex Female 10:47 AM SLAB WORKER Gender Identity Not on file Sexual Orientation [...] Vaccines Completed 05/31/2014, 07/2013, 10/20/[id number] [place] [facility] [id number] Advance Directives For more information, please contact: [phone] * Full Code (Latest Code Status on File) Date Activated Date Inactivated Comments 08/24/2019 7:48 PM 08/28/2019 8:52 PM Full CPR in c ase of cardiopulmonary arrest Care Teams Financial Systems Director Relationship Specialty Start Date End Date Elliot Ha MD [address] [place] [address] [address] [facility] [address] [place] [address] PCP - General Obstetrics and Gynecology 11/09/21
--- OUTSIDE RECORDS SUMMARY | 2024-10-06 05:50 | XMS_ITS | Encounter Summary ---
Author Organization [facility] Address [address] [place] [address] Care Team Providers Care Home Visitor Home Base Head Start Name Role Phone Maria M Garza MD Unavailable [phone] Encounter Details Date Type Department Care Team (Late st Contact Info) Description 01/14/2019 Telephone [facility] Pediatrics - Neurology [address] [place] [id number] Uzma Ferro MD [address] [place] [id number] Social History Tobacco Use Types Packs/Day Years Used Date Smoking Tobacco: Never Assessed Comments No Sex and Gender Information Value Date Recorded Sex Assigned at Not on file Legal Sex Female 8:01 AM [employer] Gender Identity Not on file Sexual Orientation [...] on filedocumented in this encounter Care Teams Home Visitor Home Base Head Start Relationship Specialty Start Date End Date Maria M Garza MD [address] [place] [id number] Pediatrics 02/12/17 documented as of this encounter
--- OUTSIDE RECORDS SUMMARY | 2024-10-06 05:50 | XMS_ITS | Encounter Summary ---
Author Organization [facility] Address [address] [place] [address] Phone Care Team Providers Care Reservation Agent Name Role Phone An Ace PAC Primary Care Provider + Shilpi Fatima APRN, HVAC PROJECT ENGINEER Unavailable Reji Deal MD Unavailable Abimael Grimes MD Unavailable [phone] Encounter Details Date Type Department Care Team (Late st Contact Info) Description 04/19/2024 Telephone [facility] [address] [place] [address] An Ace, PAC [address] [place] [address] Social History Tobacco Use Types Packs/Day Years Used Date Smoking Tobacco: Never Smokeless Tobacco: Never Alcohol Use Standard Drinks/Week Comments Never 0 (1 standard drink = 0.6 oz pur e alcohol) [facility] Utilities Answer Date Recorded In [...] often do you attend chur ch or scientologist services? Patient declined 10/22/2023 Do you belong to any clubs o r organizations such as sikh groups, unions, fraternal or athletic groups, or [...] medical care, and heating? Somewhat hard 10/22/2023 [facility] - Occupational [...] any time in the past 12 [facility], were you homeless or living in [...] on filedocumented in this encounter Care Teams Reservation Agent Relationship Specialty Start Date End Date An Ace PAC [address] [place] [address] PCP - General Physician Venue Manager 01/16/23 Shilpi Fatima APRN, HVAC PROJECT ENGINEER [address] [place] [address] Nurse Practitioner Advanced Practice Nurse 02/13/23 Reji Deal MD [address] [place] [address] Consulting Physician Neurology 07/18/23 Abimael Grimes MD [address] [address] Consulting Physician General Surgery 12/12/23 documented as of this encounter
--- OUTSIDE RECORDS SUMMARY | 2024-10-06 05:51 | XMS_ITS | Data Portability ---
Author Organization [facility] [place] Address [address] [place] [place] [address] Assessment Encounter Date Assessment Date Assessment LastModified by Organization Details LastModified Time 09/07/2024 09/07/2024 Patient is __34_weeks . Discussed plan. [email or web address] Not available 09/07/2024 12:05:55 09/24/2024 09/24/2024 Patient is ___weeks . Discussed plan. [email or web address] Not available 09/24/2024 16:29:58 10/01/2024 10/01/2024 Patient is _37__weeks . Discussed plan. [email or web address] Not available 10/01/2024 12:31:58 Plan of Treatment Reminders Order Date Submit Date Provider Last Modified By Organization Details Last Modified Time Details Appointments OB ROUTINE 2024 10:00A Johny Baird CNM Not available Not available Not available INDUCTION 2024 05:00A Johny Baird CNM Not available Not available Not available Lab streptoco ccus group B, culture, unspecifi ed specimen 2024 025 [facility] (Lab), [address], [place], [address], 09/27/2024 15:53:23 Referral None recorded. Procedures None recorded. Surgeries None recorded. Imaging US, obstetric , follow-up 2024 025 [email or web address] [place], [address], [address], [place], [address], 09/23/2024 20:06:33 non-stres s test 2024 025 [place], [address], [address], [place], [address], 09/07/2024 14:15:00 Medication Orders None recorded. Patient [...] t Abnor mal: No Resul ting Lab: [facility] [address] [facility] [address] Tel: CULTU RE ----- ----- ----- --- No Group B strep isola ann at 2 days (patricia ctive broth enhan cemen t) Not Available [facility] (Lab) [address] [facility], [place], [address], 09/27/2024 15:53:23 08/28/19 25 08/27/2024 US, obste tric, follo w-up No observ ation record ed. [email or web address] [place] [address], [place], [address], 08/27/2024 17:24:54 08/28/19 25 08/27/2024 US, obste tric, follo w-up No observ ation record ed. [address], [place], [address], 09/03/2024 07:08:49 08/31/19 25 08/30/2024 non-s tress test No observ ation record ed. [address] [facility], [place], [address], 08/31/2024 09:17:33 09/01/19 25 08/31/2024 US, obste tric, limit ed No observ ation record ed. [address] [address], [place], [address], 09/01/2024 09:51:36 09/01/19 25 08/31/2024 non-s tress test No observ ation record ed. [address] [address], [place], [address], 09/01/2024 09:51:51 09/01/19 25 08/31/2024 US, renal No observ ation record ed. [address] [address], [place], [address], 09/01/2024 09:52:14 09/08/19 25 09/07/2024 non-s tress test No observ ation record ed. [email or web address] [place] [address], [place], [address], 09/07/2024 14:13:22 09/08/19 25 09/07/2024 non-s tress test No observ ation record ed. [email or web address] [place] [address], [place], [address], 09/07/2024 14:15:21 09/17/19 25 09/16/2024 non-s tress test No observ ation record ed. [address] [address], [place], [address], 09/16/2024 17:22:09 09/24/19 25 09/23/2024 US, obste tric, follo w-up No observ ation record ed. [email or web address] [place] [address], [place], [address], 09/23/2024 12:51:29 09/24/19 25 09/23/2024 US, obste tric, follo w-up No observ ation record ed. MEHRAN [address], [place], [address], 09/30/2024 16:10:37 Result Notes None recorded. Problems Name Problem SNOMED Code Status Onset Date Resolution Date Notes Provider Name and Address Organization Details Recorded Time Past pregnanc y history of pre-ecla mpsia 8057597372 Active Pearl Baird CNM [address], [place], [address], [facility] 5 15:18:04 Past pregnanc y history of pre-ecla mpsia 4660649567 Completed ASA, baseline pIH labs Krista griffiths, [facility] 3 16:50:12 Marijuan a user 262365042 Completed encourag ed cessatio n Krista griffiths, [facility] 3 16:50:12 Cholesta sis 84926931 Completed Ursodiol 300mg BID, antenata l testing (pt declined 2x/wk), 37 wk delivery . Krista griffiths, [facility] 3 16:50:12 Pregnanc y 10648959 Active 2023 Paula griffiths, [facility] 4 12:45:34 Past pregnanc y history of pre-ecla mpsia 7539900287 Active Pearl Baird CNM [address], [place], [address], [facility] 5 15:18:03 Past pregnanc y history of cholesta sis in pregnanc y 1785723158 4945288 Active Pearl Baird, JAKI [address], [place], [address], [facility] 5 15:18:18 Placenta circumva llata 1243750 Active Rpt 32wk growth us Kerri Casillas null, [facility] 5 18:31:53 Problem Notes None recorded. Procedures Surgical History Date Name Laterality Status Provider Name and Address Organization Details Recorded Time 12/28/19 24 [facility] 09/24/2024 16:36:18 04/28/19 08 Tonsillectomy completed Pamleigh ann Mandujano [facility] 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 5 14:12:05 Date Recorded Body height Body mass index (BMI) Body weight Systolic blood pressure Diastolic blood pressure Provider Name and Address Organization Details Last Updated DateTime 09/24/2024 161.29 cm 35.4 kg/m2 18557.25 g 128 mm[Hg] 83 mm[Hg] Pam Mandujano [facility] 16:34:39 Date Recorded Body height Body mass index (BMI) Body weight Systolic blood pressure Diastolic blood pressure Provider Name and Address Organization Details Last Updated DateTime 10/01/2024 161.29 cm 36.3 kg/m2 98283.21 g 131 mm[Hg] 81 mm[Hg] Pam Mandujano [facility] 11:37:40 Social History Question Answer Notes LastModified by Organizat ion Details LastModified Time Tobacco Smoking Status Never Smoker Pam Mandujano [facility] 02/01/2022 16:49:42 Do You Have An Advance Directive? No [email or web address] Information n ot available 02/01/2022 If You Are , What Was Your Level Of Alcohol Consumption Prior To ? None [email or web address] Information not available 02/01/2022 Are You Blind Or Do You Have Difficulty Seeing? No [email or web address] Information n ot available 11/17/2021 What Is Your Level Of Caffeine Consumption? Occasional [email or web address] Information not available 11/17/2021 How Much Tobacco Do You Chew? None [email or web address] Information not available 02/01/2022 In The 14 Days Before Symptom Onset, Have You Had Close Contact With A Laboratory-confirm ed COVID-19 While That Case Was Ill? No [email or web address] Information n ot available 11/17/2021 In The 14 Days Before Symptom Onset, Have You Had Close Contact With A Person Who Is Under Investigation For COVID-19 While That Person Was Ill? No [email or web address] Information not available 11/17/2021 Have You Been To An Area Known To Be High Risk For COVID-19? No [email or web address] Information not available 11/17/2021 Are You Deaf Or Do You Have Serious Difficulty Hearing? No Information not available 11/17/2021 What Type Of Diet Are You Following? REGULAR [email or web address] Information n ot available 11/17/2021 What Is The Highest Grade Or Level Of School You Have Completed Or The Highest Degree You Have Received? [id number] Information not available 02/01/2022 Are There Any Guns Present In Your Home? No [email or web address] Information not available 02/01/2022 Do You Use Protection During Sex? No [email or web address] Information not available 02/01/2022 Do You Use Your Seat Belt Or Car Seat Routinely? Yes [email or web address] Information not available 11/17/2021 Do You Have Smoke And Carbon Monoxide Detectors In Your Home? Yes [email or web address] Information not available 11/17/2021 How Much Tobacco Do You Smoke? No [email or web address] Information not available 02/01/2022 Do You Use Sunscreen Routinely? No Information not available 02/01/2022 Has Tobacco Cessation Counseling Been Provided? No [email or web address] Information not available 02/01/2022 Have You Used IV Drugs? No [email or web address] Information not available 02/01/2022 Do You Have Difficulty Walking Or Climbing Stairs? No [email or web address] Information not available 02/01/2022 Sex: Unknown Functional Status Question Answer Note LastModified by Organizat ion Details LastModified Time Do you use any illicit or recreational drugs? No [email or web address] Information not available 11/17/2021 Do you or have you ever used any other forms of tobacco or nicotine? No [email or web address] Information not available 02/01/2022 What is your level of alcohol consumption? None [email or web address] Information not available 11/17/2021 Are you able to walk? YESWOREST [email or web address] Information not available 11/17/2021 Are you able to care for yourself? 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 No [email or web address] Information not available 02/01/2022 What is your exercise level? Occasional [email or web address] Information not available 11/17/2021 Mental Status Question Answer Note LastModified by Organization D etails LastModified Time Do you feel stressed (tense, restless, nervous, or anxious, or unable to sleep at night)? [id number] [email or web address] Information not available 11/17/2021 Family History Relationship Description Onset Age of this Age Resolved Age Notes LastModified by Organization Details LastModified Time Mother Anemia [email or web address] Not available 11/17/2021 10:52:02 Mother Hypercholest erolemia [email or web address] Not available 11/17 10:52:35 Mother Hypertensive disorder [email or web address] Not available 11/17 10:52:48 Father Diabetes mellitus [email or web address] Not available 11/17 10:52:18 Father Hypercholest erolemia Not available 11/17 10:52:34 Father Hypertensive disorder [email or web address] Not available 11/17 10:52:48 Paternal Grandmother Diabetes mellitus [email or web address] Not available 11/17 10:52:18 Medical History Condition Response Allergies (Food, seasonal, environmental ) Y Other N Drug/Latex Allergies/Reactions N Blood Transfusion N Breast Cancer N Dermatologic Disorders N Lung Disease N Defects or Inherited Disease N Breast Problem N Gestational Diabetes N Hematologic disorders N Anesthesia Complications N History of STI N Deep Vein Thrombosis N Polycystic ovary syndrome N Anxiety Disorder N Autoimmune disease N Arthritis N Polyps N Infertility N Acid Reflux (GERD) N History of abnormal pap N Cancer N Varicosities N Stroke N Neurologic/Epilepsy N Endometriosis N High Cholesterol N Fibromyalgia N Headaches N Kidney Disease N Heart Problems N Thyroid Problems N Kidney or Bladder Problems N GI Problems N Eating Disorder [...] SNOMED-CT Code Diagnosis ICD10 Code Diagnosis Note [id number] Jean Marie Hinojosa MD [place] [address] [address] 11/09/2021 14:18:48 11/09/2021 14:41:59 [id number] [facility] [address] [place] [address] 11/09/2021 14:20:09 11/09/2021 15:44:45 Amenorrhea 44322375 N91.2 [facility] 488165604 R42 [id number] Dariana Carrillo MD [place] [address] [place] [address] 12/04/2021 13:53:51 12/05/2021 15:38:07 Routine care 740182019 Z34.92 Past pregn coleman history of pre-eclampsia 8052524922 21566 Z87.59 [id number] Dariana Carrillo MD [place] [address] [place] [address] 01/02/2022 12:26:49 01/02/2022 13:54:06 screening 638067536 Z36.3 [id number] Dariana Carrillo MD [place] [address] [place] [address] 01/02/2022 14:06:12 01/02/2022 17:33:41 Past history of pre-eclampsia 1799041469 15019 Z87.59 Routine an tenatal care 816176390 Z34.92 [id number] [facility] [address] [place] [address] 02/01/2022 16:40:05 02/01/2022 17:06:56 Routine care 223675674 Z34.82 [id number] [facility] [address] [address] 02/27/2022 17:42:24 02/27/2022 18:31:11 Routine care 971461856 Z34.82 [id number] Jean Marie Hinojosa MD [place] [address] [address] 03/12/2022 16:55:31 03/12/2022 18:25:20 Pre-existing maternal disease complicating 4058205352 6106 O99.891 Z87.59 Z3A.30 [id number] [facility] [address],[place] [address] 03/13/2022 14:43:32 03/13/2022 16:31:10 Routine care 705850792 Z34.82 [id number] Jean Marie Hinojosa MD [place] [address],[place] [address] 03/13/2022 15:53:42 03/13/2022 16:27:55 Cholestasis of 022511582 O26.619 [id number] Jean Marie Hinojosa MD [place] [address],[place] [address] 03/27/2022 15:23:11 03/27/2022 16:17:35 Cholestasis of 009283877 O26.619 [id number] Jean Marie Hinojosa MD [place] [address],[place] [address] 03/27/2022 15:24:22 03/27/2022 16:48:54 Cholestasis of 798383514 O26.619 Z3A.32 [id number] Pearl Baird [facility] [address],[place] [address] 03/27/2022 15:24:48 03/27/2022 16:59:29 Routine care 253666978 Z34.82 [id number] Jean Marie Hinojosa MD [place] [address],[place] [address] 04/03/2022 15:28:56 04/03/2022 18:26:11 Cholestasis of 333126238 O26.613 Z3A.33 [id number] MD Ciarra Benz [address],[place] [address] 04/03/2022 15:29:10 04/03/2022 16:58:25 Cholestasis of 414122582 O26.613 Z3A.33 [id number] Pearl Baird [facility] [address],[place] [address] 04/03/2022 15:29:26 04/05/2022 15:54:27 Routine care 352882244 Z34.82 [id number] MD Ciarra Benz [address],[place] [address] 04/10/2022 14:51:05 04/10/2022 16:04:51 Cholestasis of 471754686 O26.613 Z3A.33 [id number] MD Ciarra Benz [address],[place] [address] 04/10/2022 14:51:45 04/11/2022 12:28:23 Cholestasis of 162678980 O26.613 Z3A.34 [id number] Pearl Baird [facility] [address],[place] [address] 04/10/2022 14:52:27 04/10/2022 16:49:29 Routine care 650952664 Z34.82 [id number] Jean Marie Hinojosa MD [place] [address],[place] [address] 04/17/2022 15:53:36 04/17/2022 17:56:04 Cholestasis of 621690551 O26.613 Z3A.34 [id number] MD Ciarra Benz [address],[place] [address] 04/17/2022 15:54:33 04/17/2022 17:02:11 Cholestasis of 336972331 O26.613 Z3A.35 [id number] [facility] [address],[place] [address] 04/17/2022 15:54:48 04/17/2022 17:25:33 [id number] Jean Marie Hinojosa MD [place] [address],[place] [address] 04/24/2022 11:34:28 04/24/2022 12:40:52 Cholestasis of 032206966 O26.613 Z3A.35 [id number] Pearl Baird [facility] [address],[place] [address] 04/24/2022 11:35:25 04/24/2022 12:42:22 Routine care 901834958 Z34.82 [id number] Pearl Baird [facility] [address],[place] [address] 05/29/2022 13:47:05 05/29/2022 15:17:42 care 266590669 Z39.2 Contracept ion care management 259008703 Z30.9 if desires depo may have with menstrual cycle, reviewed phexxi, rx to pharmacy f/u wwe in 6 mo [id number] Pearl Baird [facility] [address] [place] [address] 06/26/2022 17:59:55 06/27/2022 11:43:26 Contraception care management 859160729 Z30.9 if desires depo may have with menstrual cycle, f/u 3 mo [id number] [facility] [address] [place] [address] 06/26/2022 18:36:02 06/27/2022 11:39:45 Contraception care management 365655634 Z30.9 Contraception care 53696 5005 Z30.40 [id number] [facility] [address],[place] [address] 08/16/2022 12:28:47 08/16/2022 14:12:58 Contraception care management 399477976 Z30.9 discussed options, condoms, vasectomy, pt declines rx f/u wwe [id number] [facility] [address],[place] [address] 11/13/2022 12:04:30 11/13/2022 12:26:02 Amenorrhea 80008876 N91.2 cont to monitor, may be deferred due to depoprover a Gynecologi c examination 27290050 Z01.419 ok for refills of phexxi if needed, 2 sample packs given Abdominal pain 68684149 R10.9 labs ordered, [id number] [facility] [address],[place] [address] 12/25/2022 17:46:58 12/26/2022 12:25:36 Irregular periods 61561270 N92.6 continue to monitor Vaginitis 46428822 N76.0 culture sent, rec daily probiotic, if normal can consider boric acid [id number] GREG MILLER MD [place] [address] [address] 01/24/2023 13:39:22 01/27/2023 11:42:21 Abnormal uterine bleeding 8081580284 9100 N93.9 - amenorrhei c from May [...] decides what she would like to do [id number] RAN Luu [place] [address] [address] 02/28/2023 10:07:52 02/28/2023 11:08:03 Abnormal uterine bleeding 8775209438 9100 N93.9 symptoms have resolvedUP T done [...] review of plan of care. Urinary symptoms 2686880 08 R39.9 Vulval irritation 842648 003 N90.89 Venereal d isease screening 804503552 Z11.3 [id number] [facility] [address],[place] [address] 05/02/2023 15:22:13 05/02/2023 16:02:54 Irregular periods 39593841 N92.6 continue to monitor, disc side effects risks and benefits including blood clot, stroke, mi, will take for 3-6 mo f/u med check in 3 months [id number] Jean Marie Hinojosa MD [place] [address],[place] [address] 04/08/2024 11:04:41 04/08/2024 11:44:37 screening 909448813 Z36.82 Z3A.12 [id number] Jean Marie Hinojosa MD [place] [address] [address] 04/08/2024 11:05:24 04/08/2024 15:20:08 Routine care 094998423 Z34.90 [id number] Pearl Baird CNM [place] [address],[place] [address] 05/07/2024 15:52:04 05/07/2024 16:37:59 Gestation period, 16 weeks 70624087 Z3A.16 [id number] Jean Marie Hinojosa MD [place] [address] [address] 06/11/2024 11:05:09 06/11/2024 12:02:43 screening for malformation 071473916 Z36.3 Z3A.21 [id number] Pearl Baird CNM [place] [address],[place] [address] 06/11/2024 11:05:24 06/11/2024 12:37:08 Gestation period, 21 weeks 30689257 Z3A.21 continue vitamin [id number] Jean Marie Hinojosa MD [place] [address],[place] [address] 07/09/2024 15:29:47 07/12/2024 07:57:24 Placenta circumvallata 5898892 O43.112 Z3A.25 [id number] [facility] [address] [address] 07/09/2024 15:30:05 07/12/2024 10:36:21 Gestation period, 25 weeks 61992023 Z3A.25 continue vitamin [id number] Jean Marie Hinojosa MD [place] [address] [address] 08/06/2024 11:58:38 08/06/2024 13:44:38 Placenta circumvallata 4186291 O43.112 Z3A.29 [id number] [facility] [address] [address] 08/06/2024 12:00:07 08/06/2024 13:44:19 Gestation period, 29 weeks 12240114 Z3A.29 [id number] Jean Marie Hinojosa MD [place] [address],[place] [address] 08/27/2024 11:33:52 08/27/2024 13:43:29 Past history of pre-eclampsia 9206343673 60436 O09.299 O43.113 Z3A.32 [id number] [facility] [address] [address] 08/27/2024 11:34:06 08/27/2024 13:38:01 Gestation period, 32 weeks 1411978 Z3A.32 Past pregn coleman history of pre-eclampsia 6296942462 04710 O09.299 [id number] [facility] [address] [address] 09/07/2024 11:26:26 09/07/2024 12:07:12 Gestation period, 34 weeks 39240776 Z3A.34 cont pnv [id number] [facility] [address] [address] 09/07/2024 14:10:50 09/07/2024 14:15:00 Reduced movement 764736079 O36.8130 [id number] Jean Marie Hinojosa MD [place] [address] [address] 09/23/2024 11:02:31 09/23/2024 11:38:48 Placenta circumvallata 6959499 O43.113 O09.293 Z3A.36 [id number] [facility] [address] [address] 09/24/2024 16:15:37 09/24/2024 17:23:56 screening 206587182 Z36.85 Gestation period, 36 weeks 33357792 Z3A.36 [id number] [facility] [address] [address] 10/01/2024 10:54:43 10/01/2024 14:10:28 Gestation period, 37 weeks 93734991 Z3A.37 Health Concerns Section Related Observation LastModified by Organization Detai ls LastModified Time None Recorded Concern Status LastModified by Organization Details LastModified Time None Recorded Advance Directives Directive N: Payers Encounter Date Sequence Insurance Name Policy Number Policy Lockhart Covered Member ID Lockhart Member ID Guarantor Name 09/07/2024 1 [facility]) [id number] Caro Wilkes [id number] Caro Wilkes 09/07/2024 1 [facility]) [id number] Caro Johny Chung [id number] Caro Cuhng 09/23/2024 1 [facility]) [id number] Caro Johny Chung [id number] Caro Chung 09/24/2024 1 [facility]) [id number] Caro Johny Chung [id number] Caro Chung 10/01/2024 1 [facility]) [id number] Caro Johny Chung [id number] [facility] OBGyn Episode Ob Episode Information Episode Created Date Number of Fetuses Patient Bloodtype Patient rh Status Prepregnancy Weight lbs Domestic Partner Domestic Partner Phone Father Name [employer] Status 11/18/19 22 1 CLOSED Fetus Data First Name Last Name Admitted to NICU Weight (g) Sex Living Outcome Pediatric Complications Fetus ID Race Codes Race Delivery Type 2919.77 1704 F Full Term 05476 Vaginal Delivery Yvon Calculation Initial Yvon Date [...] Domestic Partner Domestic Partner Phone Father Name [employer] Manager Status 12/05/19 22 1 A Positive 163 CLOSED Fetus Data First Name Last Name Admitted to NICU Weight (g) Sex Living Outcome Pediatric Complications Fetus ID Race Codes Race Delivery Type 2976.69 75 M true Full Term 61343 Vaginal Delivery Problems Problem Notes wants placenta attached to h er baby until after she is discharged from hospital- i told her hell no since she already hates doctors (ATD)04/03 [facility] WNL Problem Name Start Date End Date Resolution Snomed Code Not e Past history of pre-eclampsia [id number] ASA, baseli ne pI labs Marijuana user 359006346 encou raged cessation Cholestasis 82868528 Ursodiol 300mg BID, testing (pt declined 2x/wk), [...] Date Ultra Sound Latest Days Gestation 0 12/04/2021 05/19/19 23 0 Pre- Flowsheet Flowsheet [...] Weight in lbs Pre/Post Dialysis Refused Weight 167.940518706446 BP Diastolic BP Location Tested BP Systolic [...] discussed both that obed not available at [place], nor at most hospitals because of the infection risk and no benefits to baby once the placenta detaches. 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] Weight in lbs Pre/Post Dialysis Refused Weight 207.611963972809 BP Diastolic BP Location Tested BP Systolic [...] Weight in lbs Pre/Post Dialysis Refused Weight 202.981611995578 BP Diastolic BP Location Tested BP Systolic [...] Weight in lbs Pre/Post Dialysis Refused Weight 209.091985219563 BP Diastolic BP Location Tested BP Systolic [...] Weight in lbs Pre/Post Dialysis Refused Weight 197.083985332059 BP Diastolic BP Location Tested BP Systolic [...] Weight in lbs Pre/Post Dialysis Refused Weight 195.478380297767 BP Diastolic BP Location Tested BP Systolic BP Type 81 125 Fetus Heart Rate Present Fetus Movement Comments Flowsheet Date 08/16/2022 Nassar Score Blood Edema Fundus Height Fundus Units Glucose Ketones Leukocytes Nitrite Labor Signs Protein Cervic Dilation Cervic Effacement Cervic Station Type Weight in lbs Pre/Post Dialysis Refused Weight 189.840188223285 BP Diastolic BP Location Tested BP Systolic [...] Estim ated Date of Delivery false Thalassemia (Grenadian, Indonesian, Mediterranean, Or Background): MCV < 80 false Neural Tube Defect (Meningomyelocele, Spina Bifi da, Or Anencephaly) false Congenital Heart Defect false Down Syndrome false Terrence-Sachs (eg, Episcopal, Cajun, Andorran-Grenada) f alse Landon Disease false Sickle Cell Disease Or Trait () false Hemophilia Or Other Blood Disorders false Muscular Dystrophy false Cystic Fibrosis false Portland's Chorea false Intellectual Disability/Autism false If Yes, [...] Domestic Partner Domestic Partner Phone Father Name [employer] Manager Status 11/18/19 22 1 CLOSED Fetus Data First Name Last Name Admitted to NICU Weight (g) Sex Living Outcome Pediatric Complications Fetus ID Race Codes Race Delivery Type , Spontane ous [id number] Yvon Calculation Initial Yvon Date Initial Exam [...] Domestic Partner Domestic Partner Phone Father Name [employer] Manager Status 11/18/19 22 1 DELETED Yvon Calculation [...] Domestic Partner Domestic Partner Phone Father Name [employer] Manager Status 11/18/19 22 1 CLOSED Fetus Data First Name Last Name Admitted to NICU Weight (g) Sex Living Outcome Pediatric Complications Fetus ID Race Codes Race Delivery Type , Spontane ous [id number] Yvon Calculation Initial Yvon Date Initial Exam [...] Domestic Partner Domestic Partner Phone Father Name [employer] Manager Status 04/08/20 24 1 A Positive 167 Jvion Tyler OPEN Fetus Data First Name Last Name Admitted to NICU Weight (g) Sex Living Outcome Pediatric Complications Fetus ID Race Codes Race Delivery Type [id number] Problems Problem Notes Problem Name Start Date End Date Resolution Snomed Code Not e Past history of cholestasis in [id number] Past history of pre-eclampsia [id number] Placenta circumvallata [id number] Rpt 32wk growth us Yvon Calculation Initial Yvon Date Initial Exam Date Initial Exam Provider Initial Ultrasound Date Last Menstrual Period Date Ultra Sound Weeks Gestation 04/08/2024 [email or web address] 04/08/2024 01/12/2024 12 Eighteen To Twenty Week Yvon Update Ultra Sound Date Fundal Height At Umbil Quickening Date Ultra Sound Latest Weeks Gestation Final Yvon Confirmed By Final Yvon Confirmed Date Final Yvon Date Ultra Sound Latest Days Gestation 0 [email or web address] 04/08/2024 10/19/19 25 0 Pre-chika Flowsheet Flowsheet Date 04/08/2024 Nassar Score Blood Edema Fundus Height Fundus Units Glucose Ketones Leukocytes Nitrite Labor Signs Protein Cervic Dilation Cervic Effacement Cervic Station Type Weight in lbs Pre/Post Dialysis Refused Weight 140.031434757133 BP Diastolic BP Location Tested BP Systolic [...] Type Weight in lbs Pre/Post Dialysis Refused 147.699454207460 BP Diastolic BP Location Tested BP Systolic BP Type 75 125 Fetus Heart Rate Present A 148 Present Fetus Movement A Yes Comments Patient is having nausea. st art bASA hx pre-e, baseline cholestasis, pt worried about her itching. also worried about anemia, craving ice precautions and education f/u 4 weeks with baseline Flowsheet Date 06/11/2024 Nassra Score Blood Edema Fundus Height Fundus Units [...] Type Weight in lbs Pre/Post Dialysis Refused 148.712076466513 BP Diastolic BP Location Tested BP Systolic [...] Type Weight in lbs Pre/Post Dialysis Refused 165.549543224755 BP Diastolic BP Location Tested BP Systolic [...] Weight in lbs Pre/Post Dialysis Refused Weight 179.674766188530 BP Diastolic BP Location Tested BP Systolic [...] Type Weight in lbs Pre/Post Dialysis Refused 186.691324697536 BP Diastolic BP Location Tested BP Systolic [...] Weight in lbs Pre/Post Dialysis Refused Weight 194.980032658845 BP Diastolic BP Location Tested BP Systolic [...] Weight in lbs Pre/Post Dialysis Refused Weight 194.567927659197 BP Diastolic BP Location Tested BP Systolic [...] Weight in lbs Pre/Post Dialysis Refused Weight 203.556580929806 BP Diastolic BP Location Tested BP Systolic [...] Weight in lbs Pre/Post Dialysis Refused Weight 208.383492006028 BP Diastolic BP Location Tested BP Systolic [...]
--- OUTSIDE RECORDS SUMMARY | 2024-10-06 05:51 | XMS_ITS | Clinical Summary ---
Author Organization [facility] Address [address] [place] [address] Phone Care Team Providers Care Litigation Docket Manager Name Role Phone An Ace Primary Care Provider + Shilpi Fatima APRN, BARREL WASHER MACHINE Unavailable Reji Deal MD Unavailable [phone] Abimael Grimes MD Unavailable [phone] Allergies No known active allergies Medications Vit-Fe Fumarate-FA ( VITAMINS PO) Take by mouth. Active Active Problems Problem Noted Date Diagnosed Date Abdominal pain 01/02/2024 Asthma Comments Yes Resolved Problems Problem Noted Date Diagnosed Date Resolved Date Post-operative pain 01/02/2024 01/02/20 24 Vertigo 01/02/2024 Overview (01/02/2024): as a child Encounters Date Type Department Care Team Description 07/28/2024 8:30 AM CDT Physical Therapy [facility] [address], [address] [place] [address] An Ace PAC Hamilton, Kirstin E, PT Chronic left-sided low back pain, unspecified whether sciatica present (Primary Dx); Weakness; Abnormal posture Discharge Disposition: Discharged to home or Selfcare 07/28/2024 Travel 07/23/2024 Telephone [facility] [address], [address] [place] [address] Madhavi Ferraro, PT Transportation Issues 07/14/2024 8:30 AM CDT Physical Therapy [facility] [address], [address] [place] [address] An Ace PAC Hamilton, Kirstin E, PT Chronic left-sided low back pain, unspecified whether sciatica present (Primary Dx); Weakness; Abnormal posture Discharge Disposition: Discharged to home or Selfcare 07/14/2024 Travel 07/09/2024 9:15 AM CDT Physical Therapy [facility] [address], [address] [place] [address] An Ace PAC Hamilton, Kirstin E, PT Chronic left-sided low back pain, unspecified whether sciatica present (Primary Dx); Weakness; Abnormal posture Discharge Disposition: Discharged to home or Selfcare 07/09/2024 Travel 07/07/2024 Telephone [facility] [address], [address] [place] [address] Madhavi Ferraro, PT No Show (1st NSNC- [...] 0.6 oz pur e alcohol) [facility] Utilities Answer Date Recorded In the past 12 months has [employer], gas, oil, or water [employer] threatened to shut off services in your [...] week 10/22/2023 How often do you attend [facility] or church services? Patient declined 10/22/2023 Do you belong to any clubs o r organizations such as scientologist groups, unions, fraternal or athletic groups, or [...] Total Score - Questions 1-9 0 04/29 [facility] - [...] any time in the past 12 m [facility], were you homeless or living in a [facility] (including now)? Patient declined 01/02/2024 Comments Yes Sex and Gender Information Value Date Recorded Sex Assigned at Not on file Legal Sex Female 11:31 PM CDT Gender Identity Not on file Sexual Orientation Not on file Last Filed Vital Signs Vital Sign Reading Time Taken Comments Blood Pressure 110/62 05/24/2024 11:23 AM [employer] Pulse 83 05/24/2024 11:23 AM [employer] Temperature 37 C (98.6 F) 05/24/2024 11:23 AM [employer] Respiratory Rate 18 02/29/2024 5:45 PM [employer] Oxygen Saturation 100% 05/24/2024 11:23 AM [employer] Inhaled Oxygen Concentration - - Weight 67.6 kg (149 lb) 05/24/2024 11:23 AM [employer] Height 162.6 cm (5' 4) 05/24/2024 11:23 AM [employer] Body Mass Index 25.58 05/24/2024 11:23 AM [employer] Plan of Treatment Health Maintenance Due Date [...] measures to stabilize the patient. Care Teams Litigation Docket Manager Relationship Specialty Start Date End Date An Ace PAC [address] [place] [address] PCP - General Physician Pulpwood Buyer 01/16/23 Shilpi Fatima APRN, BARREL WASHER MACHINE [address] [place] [address] Nurse Practitioner Advanced Practice Nurse 02/13/23 Reji Deal MD [address] [place] [phone] Consulting Physician Neurology 07/18/23 Abimael Grimes MD [address] [phone] Consulting Physician General Surgery 12/12/23
[2024-10-06 06:19] LABS: Add Urine Microscopic? YES; Appearance Urine Clear (Clear); Bacteria Urine 1+ /hpf; Bilirubin Urine Negative (Negative); Blood Urine Negative (Negative); Color Urine Yellow (Yellow); Glucose Urine UA Negative (Negative); Ketones Urine Negative (Negative); Leukocyte Esterase Ur 2+ LEU/UL (Negative); Nitrate Urine Negative (Negative); Non Pathogenic Casts 0-2; Protein Urine Negative (Negative); RBC Urine 0-2 /hpf (0-2); Specific Grav Ur 1.012 (1.001-1.035); Squamous Epithelial Cell Urine Moderate /hpf (Few); Urobilinogen Urine 0.2 mg/dL (<2.0)
[2024-10-06 06:22] LABS: Creatinine Urine 57.3 mg/dL; Total Protein Urine Random 12 mg/dL; Ur Ttl Prot Creatinine Ratio 0.21 mg/mg (0-0.20)
[2024-10-06 06:44] LABS: Basophils Percent Auto 0.4 % (0.2-1.2); Eosinophils Absolute Auto 0.2 K/mm3 (0-0.3); Eosinophils Percent Auto 2.3 % (0-4.4); Hemoglobin 11.4 g/dL (12.0-15.0); Immature Granulocyte Absolute 0.05 K/mm3 (0.00-0.031); Immature Granulocyte Percent A 0.6 % (0-0.5); Lymphocytes Absolute Auto 1.97 K/mm3 (0.9-3.2); Lymphocytes Percent Auto 23.5 % (18.3-44.2); Mean Corpuscular HGB Conc 32.6 g/dl (32-36); Mean Corpuscular Volume 92.1 fl (80-100); Mean Platelet Volume 11.3 fl (7.4-10.4); Monocytes Absolute Auto 0.8 K/mm3 (0.1-0.6); Monocytes Percent Auto 8.9 % (2.6-8.5); Neutrophils Absolute Auto 5.4 K/mm3 (1.3-6.7); Neutrophils Percent Auto 64.3 % (45.5-73.1); Platelet Count Result 153 k/mm3 (150-375); Red Cell Distribution Width 14.6 % (11.5-14.5); White Blood Count 8.4 K/mm3 (4.5-10.0)
[2024-10-06 06:55] LABS: Alanine Aminotransferase 17 U/L (6-35); Albumin Level 3.5 g/dL (3.5-5.1); Alkaline Phosphatase 185 U/L (38-126); Anion Gap 5 mmol/L (4-12); Aspartate Amino Transferase 24 U/L (14-36); Bilirubin,Total 0.3 mg/dL (0.2-1.3); Blood Urea Nitrogen 10 mg/dL (7-17); Calcium 9.3 mg/dL (8.4-10.2); Carbon Dioxide 21 mmol/L (22-30); Chloride 106 mmol/L (98-107); Estimated Glomerular Filt Rate > 60; Glucose 87 mg/dL (65-110); Sodium 132 mmol/L (137-145); Total Protein 6.4 g/dL (6.3-8.2); Uric Acid 4.2 mg/dL (2.5-7.5)
--- NOTE | 2024-10-06 07:10 | PC.NURSE ---
Juliana Baird CNM on unit. Lab results, tracing and BPs reviewed. Informed of pt complaining of headache since yesterday around 1700, and contractions and leaking fluid. Irregular contractions noted on tracing. Orders received for Fioricet, SVE and ROM plus.
[2024-10-06] MEDS: ACETAMINOPHEN/BUTALBITAL/CAFFEINE 325-50-40 MG TABLET (FIORICET) 1 TAB PO (07:35)
[2024-10-06 08:17] LABS: OBXCEM ROM Plus Negative (Negative)
== END 2024-10-06 09:40 | disposition home or self-care (01) ==
LOC: ANHOBOP 05:48 → ANHLDR 05:50
PROVIDERS: PCP Physician Assistant; Visit Provider Advanced Practice Midwife
DX: Z34.90 Encounter for supervision of normal pregnancy, unspecified, unspecified trimester (principal); Z3A.00 Weeks of gestation of pregnancy not specified
CPT/HCPCS: 36415; 59025; 80053; 81001; 82570; 84112; 84156; 84550; 85025; 99199; A9270

== ENCOUNTER 2024-10-11 17:48 | Inpatient (IN) | payer OTHER, SELFPAY ==
[2024-10-11] VITALS (35 sets, daily range): BP systolic 117–143; BP diastolic 72–111; PULSE 79–125; TEMP 36.3–36.4; O2SAT 95–100; BMI 35.7
--- OUTSIDE RECORDS SUMMARY | 2024-10-11 18:40 | XMS_ITS | Encounter Summary ---
Author Organization [facility] Address [address] [place] [address] Phone Care Team Providers Care Credit Collection Associate Name Role Phone An Ace Primary Care Provider + Shilpi Fatima APRN, FUNCTIONAL ANALYST Unavailable Reji Deal MD Unavailable Abimael Grimes MD Unavailable Encounter Details Date Type Department Care Team (Late st Contact Info) Description 03/03/2024 Transcribe Orders [facility] [address] [place] [address] Alessandra Helm V, FLY MAKER, FUNCTIONAL ANALYST [address] [address] [address] Encounter for supervision of normal , antepartum, unspecified (Primary Dx) Social History Tobacco Use Types Packs/Day Years Used Date Smoking Tobacco: Never Smokeless Tobacco: Never Alcohol Use Standard Drinks/Week Comments Never 0 (1 standard drink = 0.6 oz pur e alcohol) [facility] Utilities Answer Date Recorded In the past 12 months has [employer], oil, or water [employer] threatened to shut off services in your [...] often do you attend chur ch or jewish services? Patient declined 10/22/2023 Do you belong to any clubs o r organizations such as rastafarian groups, unions, fraternal or athletic groups, or [...] any time in the past 12 m [facility], were you homeless or living in a residential (including now)? Patient declined 01/02/2024 Comments Yes Sex and Gender Information Value Date Recorded Sex Assigned at Not on file Legal Sex Female 11:31 PM CDT Gender Identity Not on file Sexual Orientation Not on file documented as of this encounter Plan of Treatment Not on file documented as of this encounter Results * (ABNORMAL) HCG BETA SUBUNIT SERUM QUANT (03/19/2024 3:18 PM FLOWER CHENILLER) HCG BETA SUBUNIT, QUANT 152,715.72 (H) 0.00 - 5.00 mIU/mL 03/19/2024 5:50 PM FLOWER CHENILLER [facility] Blood Venipuncture / Unknown 03/19/2024 3:18 PM FLOWER CHENILLER 03/19/2024 5:03 PM FLOWER CHENILLER Narrative [facility] - 03/19/2024 5:50 PM FLOWER CHENILLER HCG levels should be interpreted with consideration [...] with a urine hCG. Alessandra Gabriel APRN, FUNCTIONAL ANALYST CHEMISTRY ORDERABLES Final Result [facility] [address] [place] [address] documented in this encounter Visit Diagnoses Diagnosis Encounter for supervision of normal , antepartum, unspecified - Primary documented in this encounter Care Teams Credit Collection Associate Relationship Specialty Start Date End Date An Ace PAC [address] [place] [address] PCP - General Physician Dice Dealer 01/16/23 Shilpi Fatima APRN, FUNCTIONAL ANALYST [address] [place] [address] Nurse Practitioner Advanced Practice Nurse 02/13/23 Reji Deal MD [address] [place] [phone] Consulting Physician Neurology 07/18/23 Abimael Grimes MD [address] [phone] Consulting Physician General Surgery 12/12/23 documented as of this encounter
--- OUTSIDE RECORDS SUMMARY | 2024-10-11 18:40 | XMS_ITS | Encounter Summary ---
Author Organization [facility] Address [address] [facility] [place] [address] Care Team Providers Care Risk Lead Name Role Phone Maria M Garza MD Unavailable [phone] Encounter Details Date Type Department Care Team (Late st Contact Info) Description 01/14/2019 Telephone [facility] Pediatrics - Neurology [address] [place] [address] Uzma Ferro MD [address] [place] [id number] Social History Tobacco Use Types Packs/Day Years Used Date Smoking Tobacco: Never Assessed Comments No Sex and Gender Information Value Date Recorded Sex Assigned at Not on file Legal Sex Female 8:01 AM SENIOR MASTER SCHEDULER Gender Identity Not on file Sexual Orientation [...] on filedocumented in this encounter Care Teams Risk Lead Relationship Specialty Start Date End Date Maria M Garza MD [address] [place] [phone] Pediatrics 02/12/17 documented as of this encounter
--- OUTSIDE RECORDS SUMMARY | 2024-10-11 18:40 | XMS_ITS | Data Portability ---
Author Organization [facility] [place] Address [address] [place] [address] Assessment Encounter Date Assessment Date Assessment LastModified by Organization Details LastModified Time 09/07/2024 09/07/2024 Patient is __34_weeks . Discussed plan. [email or web address] Not available 09/07/2024 12:05:55 09/24/2024 09/24/2024 Patient is ___weeks . Discussed plan. [email or web address] Not available 09/24/2024 16:29:58 10/01/2024 10/01/2024 Patient is _37__weeks . Discussed plan. Not available 10/01/2024 12:31:58 10/08/2024 10/08/2024 Patient is 38___weeks . Discussed plan. [email or web address] Not available 10/08/2024 11:39:04 Plan of Treatment Reminders Order Date Submit Date Provider Last Modified By Organization Details Last Modified Time Details Appointments INDUCTION 2024 05:00A Johny Baird CNM Not available Not available Not available POST 2024 11:15A Johny Baird CNM Not available Not available Not available Lab streptoco ccus group B, culture, unspecifi ed specimen 2024 025 [facility] (Lab), [address], [place], [address], 09/27/2024 15:53:23 Referral None recorded. Procedures None recorded. Surgeries None recorded. Imaging US, obstetric , follow-up 2024 025 [email or web address] [place], [address], [place], [address], 09/23/2024 20:06:33 Medication Orders None recorded. Patient TargetsNo targets [...] t Abnor mal: No Resul ting Lab: [facility] [address] [facility] [address] [facility] [address] Tel: CULTU RE ----- ----- ----- --- No Group B strep isola ann at 2 days (patricia ctive broth enhan cemen t) Not Available [facility] (Lab) [address], [place], [address], 09/27/2024 15:53:23 08/28/1908/27/2024 , obste tric, follo w-up No observ ation record ed. [facility] [address], [place], [address], 08/27/2024 17:24:54 08/28/1908/27/2024 US, obste tric, follo w-up No observ ation record ed. [facility] [address], [place], [address], 09/03/2024 07:08:49 08/31/1908/30/2024 non-s tress test No observ ation record ed. [address], [place], [address], 08/31/2024 09:17:33 09/01/19 25 08/31/2024 US, obste tric, limit ed No observ ation record ed. [address], [place], [address], 09/01/2024 09:51:36 09/01/1908/31/2024 non-s tress test No observ ation record ed. [address] [address], [place], [address], 09/01/2024 09:51:51 09/01/19 25 08/31/2024 US, renal No observ ation record ed. [address] [address], [place], [address], 09/01/2024 09:52:14 09/08/19 25 09/07/2024 non-s tress test No observ ation record ed. [email or web address] [place] [address], [place], [address], 09/07/2024 14:13:22 09/08/19 25 09/07/2024 non-s tress test No observ ation record ed. [email or web address] [place] [address], [place], [address], 09/07/2024 14:15:21 09/17/19 25 09/16/2024 non-s tress test No observ ation record ed. [address], [place], [address], 09/16/2024 17:22:09 09/24/19 25 09/23/2024 US, obste tric, follo w-up No observ ation record ed. [email or web address] [place] [address], [place], [address], 09/23/2024 12:51:29 09/24/19 25 09/23/2024 US, obste tric, follo w-up No observ ation record ed. MEHRAN [facility] [address], [place], [address], 09/30/2024 16:10:37 10/07/19 25 10/06/2024 non-s tress test No observ ation record ed. [address], [place], [address], 10/06/2024 14:23:11 Result Notes None recorded. Problems Name Problem SNOMED Code Status Onset Date Resolution Date Notes Provider Name and Address Organization Details Recorded Time Past pregnanc y history of pre-ecla mpsia 8146611587 Active Pearl Baird CNM [address], [place], [address], [facility] 5 15:18:04 Past pregnanc y history of pre-ecla mpsia 7923148046 86460 Completed ASA, baseline pIH labs Krista griffiths, [facility] 3 16:50:12 Marijuan a user [id number] Completed encourag ed cessatio n Krista griffiths, [facility] 3 16:50:12 Cholesta sis 84031093 Completed Ursodiol 300mg BID, antenata l testing (pt declined 2x/wk), 37 wk delivery . Krista griffiths, [facility] 3 16:50:12 Pregnanc y 31847202 Active 2023 Paula griffiths, [facility] 4 12:45:34 Past pregnanc y history of pre-ecla mpsia 2506536679 49747 Active Pearl Baird CNM [address], [place], [address], [facility] 5 15:18:03 Past pregnanc y history of cholesta sis in pregnanc y 1476754011 4532701 Active Pearl Baird CNM [address], [place], [address], [facility] 5 15:18:18 Placenta circumva llata 7730261 Active Rpt 32wk growth us Kerri Vinny griffiths, [facility] 5 18:31:53 Problem Notes None recorded. Procedures Surgical History Date Name Laterality Status Provider Name and Address Organization Details Recorded Time 12/28/19 24 cholecystectomy completed Pam Mandujano [facility] 09/24/2024 16:36:18 04/28/19 08 Tonsillectomy completed Pam Mandujano [facility] 11/17/2021 10:53:53 Imaging Results None recorded. 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 12/25 completed Not Available Not Available Not Available azithromyci n 500 mg tablet TAKE 1 TABLET BY MOUTH EVERY DAY FOR 5 DAYS 03/13 completed Not Available Not Available Not Available .09/24 (28) 1.5 mg-30 mcg (21)/75 mg (7) [...] Updated DateTime 5 161.29 cm 33.8 kg/m2 74696.9 2 g 161.29 cm 33.8 kg/m2 71550.9 2 g 123 mm[Hg] 78 mm[Hg] 123 mm[Hg] 78 mm[Hg] Pam Mandujano [facility] 5 14:12:05 Date Recorded Body height Body mass index (BMI) Body weight Systolic blood pressure Diastolic blood pressure Provider Name and Address Organization Details Last Updated DateTime 09/24/2024 161.29 cm 35.4 kg/m2 52906.25 g 128 mm[Hg] 83 mm[Hg] Pam Mandujano [facility] 5 16:34:39 Date Recorded Body height Body mass index (BMI) Body weight Systolic blood pressure Diastolic blood pressure Provider Name and Address Organization Details Last Updated DateTime 10/01/2024 161.29 cm 36.3 kg/m2 22860.21 g 131 mm[Hg] 81 mm[Hg] Pam Mandujano [facility] 5 11:37:40 Date Recorded Body height Body mass index (BMI) Body weight Systolic blood pressure Diastolic blood pressure Provider Name and Address Organization Details Last Updated DateTime 10/08/2024 161.29 cm 36.3 kg/m2 76878.21 g 133 mm[Hg] 85 mm[Hg] Pam Mandujano [facility] 5 11:27:31 Social History Question Answer Notes LastModified by Organizat ion Details LastModified Time Tobacco Smoking Status Never Smoker Pam Mandujano [facility] 02/01/2022 16:49:42 Do You Have An Advance Directive? No [email or web address] Information n ot available 02/01/2022 If You Are , What Was Your Level Of Alcohol Consumption Prior To ? None [email or web address] Information not available 02/01/2022 Are You Blind Or Do You Have Difficulty Seeing? No [email or web address] Information n ot available 11/17/2021 What Is Your Level Of Caffeine Consumption? Occasional [email or web address] Information not available 11/17/2021 How Much Tobacco Do You Chew? None [email or web address] Information not available 02/01/2022 In The 14 Days Before Symptom Onset, Have You Had Close Contact With A Laboratory-confirm ed COVID-19 While That Case Was Ill? No [email or web address] Information n ot available 11/17/2021 In The 14 Days Before Symptom Onset, Have You Had Close Contact With A Person Who Is Under Investigation For COVID-19 While That Person Was Ill? No Information not available 11/17/2021 Have You Been To An Area Known To Be High Risk For COVID-19? No Information not available 11/17/2021 Are You Deaf Or Do You Have Serious Difficulty Hearing? No [email or web address] Information not available 11/17/2021 What Type Of Diet Are You Following? REGULAR [email or web address] Information n ot available 11/17/2021 What Is The Highest Grade Or Level Of School You Have Completed Or The Highest Degree You Have Received? [id number] [email or web address] Information not available 02/01/2022 Are There Any Guns Present In Your Home? No [email or web address] Information not available 02/01/2022 Do You Use Protection During Sex? No Information not available 02/01/2022 Do You Use Your Seat Belt Or Car Seat Routinely? Yes Information not available 11/17/2021 Do You Have Smoke And Carbon Monoxide Detectors In Your Home? Yes [email or web address] Information not available 11/17/2021 How Much Tobacco Do You Smoke? No [email or web address] Information not available 02/01/2022 Do You Use Sunscreen Routinely? No [email or web address] Information not available 02/01/2022 Has Tobacco Cessation Counseling Been Provided? No [email or web address] Information not available 02/01/2022 Have You Used IV Drugs? No [email or web address] Information not available 02/01/2022 Do You Have Difficulty Walking Or Climbing Stairs? No [email or web address] Information not available 02/01/2022 Sex: Unknown Functional Status Question Answer Note LastModified by Organizat ion Details LastModified Time Do you use any illicit or recreational drugs? No [email or web address] Information not available 11/17/2021 Do you or have you ever used any other forms of tobacco or nicotine? No Information not available 02/01/2022 What is your level of alcohol consumption? None Information not available 11/17/2021 Are you able to walk? [email or web address] Information not available 11/17/2021 Are you able to care for yourself? 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 No [email or web address] Information not available 02/01/2022 What is your exercise level? Occasional [email or web address] Information not available 11/17/2021 Mental Status Question Answer Note LastModified by Organization D etails LastModified Time Do you feel stressed (tense, restless, nervous, or anxious, or unable to sleep at night)? [id number] Information not available 11/17/2021 Family History Relationship Description Onset Age of this Age Resolved Age Notes LastModified by Organization Details LastModified Time Mother Anemia [email or web address] Not available 11/17/2021 10:52:02 Mother Hypercholest erolemia [email or web address] Not available 11/17 10:52:35 Mother Hypertensive disorder [email or web address] Not available 11/17 10:52:48 Father Diabetes mellitus [email or web address] Not available 11/17 10:52:18 Father Hypercholest erolemia [email or web address] Not available 11/17 10:52:34 Father Hypertensive disorder [email or web address] Not available 11/17 10:52:48 Paternal Grandmother Diabetes mellitus [email or web address] Not available 11/17 10:52:18 Medical History Condition [...] SNOMED-CT Code Diagnosis ICD10 Code Diagnosis Note [id number] Jean Marie Hinojosa MD [place] [address] [place] [address] 11/09/2021 14:18:48 11/09/2021 14:41:59 [id number] Pearl Baird [facility] [address] [place] [address] 11/09/2021 14:20:09 11/09/2021 15:44:45 Amenorrhea 54151192 N91.2 Dizziness 162812363 R42 [id number] Dariana Carrillo MD [place] [address] [place] [address] 12/04/2021 13:53:51 12/05/2021 15:38:07 Routine care 699313830 Z34.92 Past pregn coleman history of pre-eclampsia 0293024153 25733 Z87.59 [id number] MD Lexie [place] [address] [place] [address] 01/02/2022 12:26:49 01/02/2022 13:54:06 screening 943757542 Z36.3 [id number] MD Lexie [place] [address] [place] [address] 01/02/2022 14:06:12 01/02/2022 17:33:41 Past history of pre-eclampsia 9001170831 92809 Z87.59 Routine an tenatal care 204160716 Z34.92 [id number] Pearl Baird [facility] [address] [address] 02/01/2022 16:40:05 02/01/2022 17:06:56 Routine care 270736398 Z34.82 [id number] Pearl Baird [facility] [address] [address] 02/27/2022 17:42:24 02/27/2022 18:31:11 Routine care 906788189 Z34.82 [id number] Jean Marie Hinojosa MD [place] [address] [address] 03/12/2022 16:55:31 03/12/2022 18:25:20 Pre-existing maternal disease complicating 7715163037 6106 O99.891 Z87.59 Z3A.30 [id number] Pearl Baird [facility] [address] [address] 03/13/2022 14:43:32 03/13/2022 16:31:10 Routine care 493688010 Z34.82 [id number] Jean Marie Hinojosa MD [place] [address] [address] 03/13/2022 15:53:42 03/13/2022 16:27:55 Cholestasis of 815592748 O26.619 [id number] MD Ciarra Benz [address] [address] 03/27/2022 15:23:11 03/27/2022 16:17:35 Cholestasis of 885118309 O26.619 [id number] MD Ciarra Benz [address] [address] 03/27/2022 15:24:22 03/27/2022 16:48:54 Cholestasis of 261168411 O26.619 Z3A.32 [id number] [facility] [address] [address] 03/27/2022 15:24:48 03/27/2022 16:59:29 Routine care 298387764 Z34.82 [id number] Jean Marie Hinojosa MD [place] [address] [address] 04/03/2022 15:28:56 04/03/2022 18:26:11 Cholestasis of 418339154 O26.613 Z3A.33 [id number] MD Ciarra Benz [address] [address] 04/03/2022 15:29:10 04/03/2022 16:58:25 Cholestasis of 136471247 O26.613 Z3A.33 [id number] Pearl Baird CNM [place] [address] [address] 04/03/2022 15:29:26 04/05/2022 15:54:27 Routine care 100243197 Z34.82 [id number] MD Ciarra Benz [address] [address] 04/10/2022 14:51:05 04/10/2022 16:04:51 Cholestasis of 925844681 O26.613 Z3A.33 [id number] MD Ciarra Benz [address] [address] 04/10/2022 14:51:45 04/11/2022 12:28:23 Cholestasis of 294940483 O26.613 Z3A.34 [id number] Pearl Baird CNM [place] [address] [address] 04/10/2022 14:52:27 04/10/2022 16:49:29 Routine care 704212008 Z34.82 [id number] Jean Marie Hinojosa MD [place] [address] [address] 04/17/2022 15:53:36 04/17/2022 17:56:04 Cholestasis of 512734286 O26.613 Z3A.34 [id number] Jean Marie Hinojosa MD [place] [address] [address] 04/17/2022 15:54:33 04/17/2022 17:02:11 Cholestasis of 190654155 O26.613 Z3A.35 [id number] [facility] [address] [address] 04/17/2022 15:54:48 04/17/2022 17:25:33 [id number] Jean Marie Hinojosa MD [place] [address] [address] 04/24/2022 11:34:28 04/24/2022 12:40:52 Cholestasis of 873615598 O26.613 Z3A.35 [id number] [facility] [address] [address] 04/24/2022 11:35:25 04/24/2022 12:42:22 Routine care 471214470 Z34.82 [id number] [facility] [address] [address] 05/29/2022 13:47:05 05/29/2022 15:17:42 care 454153860 Z39.2 Contracept ion care management 970103833 Z30.9 if desires depo may have with menstrual cycle, reviewed phexxi, rx to pharmacy f/u wwe in 6 mo [id number] Pearl Baird CNM [place] [address] [address] 06/26/2022 17:59:55 06/27/2022 11:43:26 Contraception care management 512846118 Z30.9 if desires depo may have with menstrual cycle, f/u 3 mo [id number] Pearl Baird [facility] [address] [address] 06/26/2022 18:36:02 06/27/2022 11:39:45 Contraception care management 159334091 Z30.9 Contraception care 13705 5005 Z30.40 [id number] Pearl Baird [facility] [address] [address] 08/16/2022 12:28:47 08/16/2022 14:12:58 Contraception care management 981027004 Z30.9 discussed options, condoms, vasectomy, pt declines rx f/u wwe [id number] Pearl Baird [facility] [address] [address] 11/13/2022 12:04:30 11/13/2022 12:26:02 Amenorrhea 26862213 N91.2 cont to monitor, may be deferred due to depoprover a Gynecologi c examination 60688554 Z01.419 ok for refills of phexxi if needed, 2 sample packs given Abdominal pain 59328496 R10.9 labs ordered, [id number] Pearl Baird [facility] [address] [address] 12/25/2022 17:46:58 12/26/2022 12:25:36 Irregular periods 21558071 N92.6 continue to monitor Vaginitis 89619690 N76.0 culture sent, rec daily probiotic, if normal can consider boric acid [id number] GREG MILLER MD [place] [address] [address] 01/24/2023 13:39:22 01/27/2023 11:42:21 Abnormal uterine bleeding 2029761245 9100 N93.9 - amenorrhei c from May [...] decides what she would like to do [id number] RAN Luu [place] [address] [address] 02/28/2023 10:07:52 02/28/2023 11:08:03 Abnormal uterine bleeding 1614543432 9100 N93.9 symptoms have resolvedUP T done [...] review of plan of care. Urinary symptoms 5352438 08 R39.9 Vulval irritation 967566 003 N90.89 Venereal d isease screening 673254257 Z11.3 [id number] [facility] [address] [address] 05/02/2023 15:22:13 05/02/2023 16:02:54 Irregular periods 87341313 N92.6 continue to monitor, disc side effects risks and benefits including blood clot, stroke, mi, will take for 3-6 mo f/u med check in 3 months [id number] Jean Marie Hinojosa MD [place] [address] [address] 04/08/2024 11:04:41 04/08/2024 11:44:37 screening 902044820 Z36.82 Z3A.12 [id number] Jean Marie Hinojosa MD [place] [address] [address] 04/08/2024 11:05:24 04/08/2024 15:20:08 Routine care 295027391 Z34.90 [id number] [facility] [address] [address] 05/07/2024 15:52:04 05/07/2024 16:37:59 Gestation period, 16 weeks 58469280 Z3A.16 [id number] Jean Marie Hinojosa MD [place] [address] [address] 06/11/2024 11:05:09 06/11/2024 12:02:43 screening for malformation 808832034 Z36.3 Z3A.21 [id number] Pearl Baird [facility] [address] [address] 06/11/2024 11:05:24 06/11/2024 12:37:08 Gestation period, 21 weeks 71366292 Z3A.21 continue vitamin [id number] Jean Marie Hinojosa MD [place] [address] [address] 07/09/2024 15:29:47 07/12/2024 07:57:24 Placenta circumvallata 9260228 O43.112 Z3A.25 [id number] Pearl Baird [facility] [address] [address] 07/09/2024 15:30:05 07/12/2024 10:36:21 Gestation period, 25 weeks 37239011 Z3A.25 continue vitamin [id number] Jean Marie Hinojosa MD [place] [address] [address] 08/06/2024 11:58:38 08/06/2024 13:44:38 Placenta circumvallata 3104128 O43.112 Z3A.29 [id number] [facility] [address] [address] 08/06/2024 12:00:07 08/06/2024 13:44:19 Gestation period, 29 weeks 30907872 Z3A.29 [id number] Jean Marie Hinojosa MD [place] [address] [address] 08/27/2024 11:33:52 08/27/2024 13:43:29 Past history of pre-eclampsia 9240510148 25833 O09.299 O43.113 Z3A.32 [id number] Pearl Baird [facility] [address] [address] 08/27/2024 11:34:06 08/27/2024 13:38:01 Gestation period, 32 weeks 1612305 Z3A.32 Past pregn coleman history of pre-eclampsia 7575799689 32010 O09.299 [id number] [facility] [address] [address] 09/07/2024 11:26:26 09/07/2024 12:07:12 Gestation period, 34 weeks 02697813 Z3A.34 cont pnv [id number] [facility] [address] [address] 09/07/2024 14:10:50 09/07/2024 14:15:00 Reduced movement 677951870 O36.8130 [id number] Jean Marie Hinojosa MD [place] [address] [address] 09/23/2024 11:02:31 09/23/2024 11:38:48 Placenta circumvallata 2587702 O43.113 O09.293 Z3A.36 [id number] [facility] [address] [address] 09/24/2024 16:15:37 09/24/2024 17:23:56 screening 334867317 Z36.85 Gestation period, 36 weeks 72505089 Z3A.36 [id number] [facility] [address] [address] 10/01/2024 10:54:43 10/01/2024 14:10:28 Gestation period, 37 weeks 66459592 Z3A.37 [id number] [facility], [facility] [address] [address] 10/08/2024 11:19:39 10/08/2024 11:41:14 Gestation period, 38 weeks 67550582 Z3A.38 cont pnv Health Concerns Section Related Observation LastModified by Organization Detai ls LastModified Time None Recorded Concern Status LastModified by Organization Details LastModified Time None Recorded Advance Directives Directive N: Payers Insurance Date Sequence Insurance Name Policy Number Policy Lockhart Covered Member ID Lockhart Member ID Guarantor Name 10/11/2024 1 [employer] [place] [place] [id number] Caro Wilkes [id number] Caro Wilkes OBGyn Episode Ob Episode Information Episode Created Date Number of Fetuses Patient Bloodtype Patient rh Status Prepregnancy Weight lbs Domestic Partner Domestic Partner Phone Father Name Office Services Manager Status 11/18/19 22 1 CLOSED Fetus Data First Name Last Name Admitted to NICU Weight (g) Sex Living Outcome Pediatric Complications Fetus ID Race Codes Race Delivery Type 2919.77 1704 F Full Term 68170 Vaginal Delivery Yvon Calculation Initial Yvon Date [...] Domestic Partner Domestic Partner Phone Father Name Office Services Manager Status 12/05/19 22 1 A Positive 163 CLOSED Fetus Data First Name Last Name Admitted to NICU Weight (g) Sex Living Outcome Pediatric Complications Fetus ID Race Codes Race Delivery Type 2976.69 75 M true Full Term [id number] Vaginal Delivery Problems Problem Notes wants placenta attached to h er baby until after she is discharged from hospital- i told her hell no since she already hates doctors (ATD)04/03 PI WNL Problem Name Start Date End Date Resolution Snomed Code Not e Past history of pre-eclampsia 482526838659249 ASA, baseli ne pIH labs Marijuana user 535593862 encou raged cessation Cholestasis 86254419 Ursodiol 300mg BID, testing (pt declined 2x/wk), [...] Date Ultra Sound Latest Days Gestation 0 [email or web address] 12/04/2021 05/19/19 23 0 Pre- Flowsheet Flowsheet [...] Weight in lbs Pre/Post Dialysis Refused Weight 167.008019054566 BP Diastolic BP Location Tested BP Systolic [...] discussed both that obed not available at [place], nor at most hospitals because of the infection risk and no benefits to baby once the placenta detaches. 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] Weight in lbs Pre/Post Dialysis Refused Weight 207.767464283141 BP Diastolic BP Location Tested BP Systolic [...] Weight in lbs Pre/Post Dialysis Refused Weight 202.985097729576 BP Diastolic BP Location Tested BP Systolic BP Type 76 127 Fetus Heart Rate Present Fetus Movement A Yes Comments patient is still having some itching and is worse the last 2 days, increase to ursadiol 500 mg BID, recheck cmp and bile acids, NST and BPP 1010, EFW 60%, planning 37 week delivery will [...] Weight in lbs Pre/Post Dialysis Refused Weight 209.681984413258 BP Diastolic BP Location Tested BP Systolic [...] Weight in lbs Pre/Post Dialysis Refused Weight 197.637933366342 BP Diastolic BP Location Tested BP Systolic [...] Weight in lbs Pre/Post Dialysis Refused Weight 195.511535467924 BP Diastolic BP Location Tested BP Systolic BP Type 81 125 Fetus Heart Rate Present Fetus Movement Comments Flowsheet Date 08/16/2022 Nassar Score Blood Edema Fundus Height Fundus Units Glucose Ketones Leukocytes Nitrite Labor Signs Protein Cervic Dilation Cervic Effacement Cervic Station Type Weight in lbs Pre/Post Dialysis Refused Weight 189.372643186682 BP Diastolic BP Location Tested BP Systolic [...] Estim ated Date of Delivery false Thalassemia (Romanian, Mosotho, Mediterranean, Or Background): MCV < 80 false Neural Tube Defect (Meningomyelocele, Spina Bifi da, Or Anencephaly) false Congenital Heart Defect false Down Syndrome false Terrence-Sachs (eg, Alevism, Cajun, Solomon Islander-Paraguayan) f alse Landon Disease false Sickle Cell Disease Or Trait () false Hemophilia Or Other Blood Disorders false Muscular Dystrophy false Cystic Fibrosis false Renton's Chorea false Intellectual Disability/Autism false If Yes, [...] Domestic Partner Domestic Partner Phone Father Name Office Services Manager Status 11/18/19 22 1 CLOSED Fetus Data First Name Last Name Admitted to NICU Weight (g) Sex Living Outcome Pediatric Complications Fetus ID Race Codes Race Delivery Type , Spontane ous [id number] Yvon Calculation Initial Yvon Date Initial Exam [...] Domestic Partner Domestic Partner Phone Father Name Office Services Manager Status 11/18/19 22 1 DELETED Yvon [...] Domestic Partner Domestic Partner Phone Father Name Office Services Manager Status 11/18/19 22 1 CLOSED Fetus Data First Name Last Name Admitted to NICU Weight (g) Sex Living Outcome Pediatric Complications Fetus ID Race Codes Race Delivery Type , Spontane ous [id number] Yvon Calculation Initial Yvon Date Initial Exam [...] Domestic Partner Domestic Partner Phone Father Name Office Services Manager Status 04/08/20 24 1 A Positive 167 Matias Tyler OPEN Fetus Data First Name Last Name Admitted to NICU Weight (g) Sex Living Outcome Pediatric Complications Fetus ID Race Codes Race Delivery Type [id number] Problems Problem Notes Problem Name Start Date End Date Resolution Snomed Code Not e Past history of cholestasis in [id number] Past history of pre-eclampsia [id number] Placenta circumvallata [id number] Rpt 32wk growth us Yvon Calculation Initial Yvon Date Initial Exam Date Initial Exam Provider Initial Ultrasound Date Last Menstrual Period Date Ultra Sound Weeks Gestation 04/08/2024 [email or web address] 04/08/2024 01/12/2024 12 Eighteen To Twenty Week [...] Weight in lbs Pre/Post Dialysis Refused Weight 140.901890710496 BP Diastolic BP Location Tested BP Systolic [...] Type Weight in lbs Pre/Post Dialysis Refused 147.976983504845 BP Diastolic BP Location Tested BP Systolic [...] Type Weight in lbs Pre/Post Dialysis Refused 148.923199182534 BP Diastolic BP Location Tested BP Systolic [...] Type Weight in lbs Pre/Post Dialysis Refused 165.874127086244 BP Diastolic BP Location Tested BP Systolic [...] Weight in lbs Pre/Post Dialysis Refused Weight 179.688720609604 BP Diastolic BP Location Tested BP Systolic [...] Type Weight in lbs Pre/Post Dialysis Refused 186.188390404337 BP Diastolic BP Location Tested BP Systolic [...] Weight in lbs Pre/Post Dialysis Refused Weight 194.617978762559 BP Diastolic BP Location Tested BP Systolic [...] Weight in lbs Pre/Post Dialysis Refused Weight 194.150801009653 BP Diastolic BP Location Tested BP Systolic [...] Weight in lbs Pre/Post Dialysis Refused Weight 203.058854773214 BP Diastolic BP Location Tested BP Systolic [...] Weight in lbs Pre/Post Dialysis Refused Weight 208.748118825471 BP Diastolic BP Location Tested BP Systolic BP Type 81 131 Fetus Heart Rate Present A 145 Fetus Movement A Yes Comments Patient states that is havin g some contractions, swelling, nausea and vomiting. +FM education and precautions would like IOl 10/12 scheduled for 629 f/u one week Flowsheet Date 10/08/2024 Nassar Score Blood Edema Fundus Height Fundus Units Glucose Ketones Leukocytes Nitrite Labor Signs Protein Cervic Dilation Cervic Effacement Cervic Station neg trace Type Weight in lbs Pre/Post Dialysis Refused Weight 208.517462964407 BP Diastolic BP Location Tested BP Systolic BP Type 85 133 Fetus Heart Rate Present A 47 Present Fetus Movement A Yes Comments Patient is having contractio ns, swelling, hand numbness, swelling and nausea. +FM IOL next week, doing well cervix almost 1 thick. ice ok for wrists, education an precautions f/u IOL Menstrual History Last Menstrual Date Menses Monthly [...]
--- OUTSIDE RECORDS SUMMARY | 2024-10-11 18:40 | XMS_ITS | Referral Summary ---
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 Advance Directives For more information, please contact: [phone] * Full Code (Latest Code Status on File) Date Activated Date Inactivated Comments 08/24/2019 7:48 PM 08/28/2019 8:52 PM Full CPR in c ase of cardiopulmonary arrest Care Teams Land Resource Specialist Relationship Specialty Start Date End Date Elliot Ha MD [address] [address] [address] PCP - General Obstetrics and Gynecology 11/09/21
--- OUTSIDE RECORDS SUMMARY | 2024-10-11 18:40 | XMS_ITS | Clinical Summary ---
Author Organization [facility] Address [address] [place] [address] Care Team Providers Care As400 Administrator Name Role Phone Maria M Garza MD Unavailable [phone] Source Comments [facility],non-owned Affiliates and Associated Physician Practices is amultiple site organization consisting of ambulatory clinics and hospital sitesin [place], [place], [place] and [place]. This disclosure is being madepursuant to the Care Everywhere program and may not contain all information available regarding this patient. Last updated 18.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 Gender Identity Not on file Sexual [...] Health Maintenance Due Date Last Done Comments HIV SCREENING 2017 HPV VACCINE (1 - 3-dose series) 2017 CHLAMYDIA/GONORRHEA SCREENING 2018 MENINGOCOCCAL (Group B) VACC INE SHARED DECISION-MAKING (1 of 2 - Standard) 2018 HEPATITIS C SCREENING 03/10/2020 DTAP/TDAP/TD VACCINES (1 - Tdap) 2021 HEPATITIS B VACCINE (1 of 3 - 19+ 3-dose series) 2021 PAP SMEAR 2023 COVID-19 VACCINE (1 - 2023-2 5 season) [...] patient's age to complete this topic Insurance [facility] [place] [id number] Care Teams As400 Administrator Relationship Specialty Start Date End Date Maria M Garza MD [address] [place] [address] Pediatrics 02/12/17
--- OUTSIDE RECORDS SUMMARY | 2024-10-11 18:40 | XMS_ITS | Clinical Summary ---
Author Organization [facility] Address [address] [place] [address] Phone Care Team Providers Care Mosaic Tile Maker Name Role Phone An Ace Primary Care Provider + Shilpi Fatima APRN, ASSISTANT TEACHING PROFESSOR Unavailable Reji Deal MD Unavailable [phone] Abimael Grimes MD Unavailable Allergies No known [...] Description 07/28/2024 8:30 AM CDT Physical Therapy [facility] [address] [place] [address] An Ace PAC Hamilton, Kirstin E, PT Chronic left-sided low back pain, unspecified whether sciatica present (Primary Dx); Weakness; Abnormal posture Discharge Disposition: Discharged to home or Selfcare 07/28/2024 Travel 07/23/2024 Telephone [facility] [address] [place] [address] Madhavi Ferraro, PT Transportation Issues 07/14/2024 8:30 AM CDT Physical Therapy [facility] [address] [place] [address] An Ace PAC Hamilton, Kirstin E, PT Chronic left-sided low back pain, unspecified whether sciatica present (Primary Dx); Weakness; Abnormal posture Discharge Disposition: Discharged to home or Selfcare 07/14/2024 Travel from Last 3 Months Immunizations Immunization [...] drink = 0.6 oz pur e alcohol) [facility] Utilities Answer Date Recorded In the past 12 months has [employer], gas, oil, or water [employer] threatened to shut off services in your [...] week 10/22/2023 How often do you attend memorial healthcare or adventism services? Patient declined 10/22/2023 Do you belong to any clubs o r organizations such as caodaism groups, unions, fraternal or athletic groups, or [...] Total Score - Questions 1-9 0 04/29 [facility] - Occupational Stress Questionnaire Answer Date [...] were you homeless or living in a halfway (including now)? Patient declined 01/02/2024 Comments Yes Sex and Gender Information Value Date Recorded Sex Assigned at Not on file Legal Sex Female 11:31 PM CDT Gender Identity Not on file Sexual Orientation Not on file Last Filed Vital Signs Vital Sign Reading Time Taken Comments Blood Pressure 110/62 05/24/2024 11:23 AM BRANCH SERVICE REPRESENTATIVE Pulse 83 05/24/2024 11:23 AM BRANCH SERVICE REPRESENTATIVE Temperature 37 C (98.6 F) 05/24/2024 11:23 AM BRANCH SERVICE REPRESENTATIVE Respiratory Rate 18 02/29/2024 5:45 PM BRANCH SERVICE REPRESENTATIVE Oxygen Saturation 100% 05/24/2024 11:23 AM BRANCH SERVICE REPRESENTATIVE Inhaled Oxygen Concentration - - Weight 67.6 kg (149 lb) 05/24/2024 11:23 AM BRANCH SERVICE REPRESENTATIVE Height 162.6 cm (5' 4) 05/24/2024 11:23 AM BRANCH SERVICE REPRESENTATIVE Body Mass Index 25.58 05/24/2024 11:23 AM BRANCH SERVICE REPRESENTATIVE Plan of Treatment Health Maintenance Due Date Last Done Comments Meningococcal B Immunization (1 of 2 - Standard) 2018 Pneumococcal Immunization Combined (1 of 2 - PCV) 2021 04/26/2004, 2002, 2002, Additional history exists Pap Smear 2023 SARS-COV-2 Immunization ( - season) 2023 Influenza Immunization (Season Ended) 2024 [...] on patient's age to complete this topic Procedures Procedure Name Priority Date/Time Associated Diagnosis Comments LAB - MISCELLANEOUS 10/06/2024 1 2:00 AM CDT COMPLETE BLOOD COUNT (CBC) WITH DIFF 10/06/2024 12:00 AM CDT URIC ACID (BLOOD ASSAY) 10/07/19 25 12:00 AM CDT CMP (COMPREHENSIVE METABOLIC PANEL) 10/06/2024 12:00 AM CDT from Last 3 Months Results * LAB - MISCELLANEOUS (10/06/2024 12:00 AM CDT) 10/06/2024 us Provider Scan CHEMISTRY ORDERABLES Final Resul t Performing Organization Address [facility] de Phone Number SCAN * URIC ACID (BLOOD ASSAY) (10/06/2024 12:00 AM CDT) 10/06/2024 us Provider Scan CHEMISTRY ORDERABLES Final Resul t Performing Organization Address City/[facility]/ZIP Co de Phone Number SCAN * CMP (COMPREHENSIVE METABOLIC PANEL) (10/06/2024 12:00 AM CDT) 10/06/2024 us Provider Scan CHEMISTRY ORDERABLES Final Resul t Performing Organization Address City/[facility] Co de Phone Number SCAN * COMPLETE BLOOD COUNT (CBC) WITH DIFF (10/06/2024 12:00 AM CDT) 10/06/2024 us Provider Scan HEMATOLOGY ORDERABLES Final Resu lt Performing Organization Address City/[facility] Co de Phone Number SCAN from Last 3 Months Insurance MEDICAID [place] Advance Directives * Full Code (Latest Code Status on File) Date Activated Date Inactivated Comments 01/02/2024 2:07 AM CPR-Full Treatm ent: FULL ARREST: Attempt Resuscitation/CPR wit intubation and mechanical ventilation. PRE-ARREST: Use entire range of life support measures to stabilize the patient. Care Teams Mosaic Tile Maker Relationship Specialty Start Date End Date An Ace PAC [address] [place] [address] PCP - General Physician Dairy Manufacturing Technologist 01/16/23 Shilpi Fatima APRN, ASSISTANT TEACHING PROFESSOR [address] [place] [address] Nurse Practitioner Advanced Practice Nurse 02/13/23 Reji Deal MD [address] [place] [id number] Consulting Physician Neurology 07/18/23 Abimael Grimes MD [address] [address] Consulting Physician General Surgery 12/12/23
--- OUTSIDE RECORDS SUMMARY | 2024-10-11 18:40 | XMS_ITS | Clinical Summary ---
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 Gender Identity Not on file Sexual Orientation [...] Vaccines Completed 05/31/2014, 07/2013, 10/20/[id number] [place] [facility] [id number] Advance Directives For more information, please contact: [phone] * Full Code (Latest Code Status on File) Date Activated Date Inactivated Comments 08/24/2019 7:48 PM 08/28/2019 8:52 PM Full CPR in c ase of cardiopulmonary arrest Care Teams Director New Product Relationship Specialty Start Date End Date Elliot Ha MD [address] [place] [address] [address] [facility] [address] [place] [address] PCP - General Obstetrics and Gynecology 11/09/21
--- OUTSIDE RECORDS SUMMARY | 2024-10-11 18:40 | XMS_ITS | Encounter Summary ---
Author Organization [facility] Address [address] [place] [address] Phone Care Team Providers Care Reinsurance Accountant Name Role Phone An Ace PAC Primary Care Provider + Shilpi Fatima APRN, MANAGER SOCIAL WORK Unavailable Reji Deal MD Unavailable [phone] Abimael Grimes MD Unavailable Encounter Details Date Type Department Care Team (Late st Contact Info) Description 04/19/2024 [facility] [address] [place] [address] An Ace, PAC [address] [place] [address] Social History Tobacco Use Types Packs/Day Years Used Date Smoking Tobacco: Never Smokeless Tobacco: Never Alcohol Use Standard Drinks/Week Comments Never 0 (1 standard drink = 0.6 oz pur e alcohol) [facility] Utilities Answer Date Recorded In [...] often do you attend chur ch or shinto services? Patient declined 10/22/2023 Do you belong [...] medical care, and heating? Somewhat hard 10/22/2023 [facility] - Occupational [...] any time in the past 12 m [facility], were you homeless or living in a fdc (including now)? Patient declined 01/02/2024 Comments Yes Sex and Gender Information Value Date Recorded Sex Assigned at Not on file Legal Sex Female 11:31 PM CDT Gender Identity Not on file Sexual Orientation Not on file documented as of this encounter Plan of Treatment Not on file documented as of this encounter Visit Diagnoses Not on filedocumented in this encounter Care Teams Reinsurance Accountant Relationship Specialty Start Date End Date An Ace PAC [address] [place] [address] PCP - General Physician Cigarette Packing Machine Operator 01/16/23 Shilpi Fatima APRN, MANAGER SOCIAL WORK [address] [place] [address] Nurse Practitioner Advanced Practice Nurse 02/13/23 Reji Deal MD [address] [place] [address] Consulting Physician Neurology 07/18/23 Abimael Grimes MD [address] [address] Consulting Physician General Surgery 12/12/23 documented as of this encounter
[2024-10-11 19:52] LABS: Basophils Percent Auto 0.2 % (0.2-1.2); Eosinophils Absolute Auto 0.1 K/mm3 (0-0.3); Eosinophils Percent Auto 1.2 % (0-4.4); Hematocrit 34.6 % (37.0-47.0); Hemoglobin 11.3 g/dL (12.0-15.0); Immature Granulocyte Absolute 0.07 K/mm3 (0.00-0.031); Immature Granulocyte Percent A 0.7 % (0-0.5); Lymphocytes Absolute Auto 1.66 K/mm3 (0.9-3.2); Mean Corpuscular HGB Conc 32.7 g/dl (32-36); Mean Corpuscular Hemoglobin 30.1 pg (26-34); Monocytes Absolute Auto 0.6 K/mm3 (0.1-0.6); Monocytes Percent Auto 6.3 % (2.6-8.5); Neutrophils Absolute Auto 7.3 K/mm3 (1.3-6.7); Neutrophils Percent Auto 74.6 % (45.5-73.1); Platelet Count Result 153 k/mm3 (150-375); Red Blood Count 3.76 M/mm3 (4.2-5.4); Red Cell Distribution Width 14.8 % (11.5-14.5); White Blood Count 9.8 K/mm3 (4.5-10.0)
[2024-10-11 20:01] LABS: Alanine Aminotransferase 16 U/L (6-35); Albumin Level 3.8 g/dL (3.5-5.1); Alkaline Phosphatase 193 U/L (38-126); Anion Gap 9 mmol/L (4-12); Aspartate Amino Transferase 20 U/L (14-36); Bilirubin,Total 0.2 mg/dL (0.2-1.3); Blood Urea Nitrogen 10 mg/dL (7-17); Calcium 9.1 mg/dL (8.4-10.2); Carbon Dioxide 20 mmol/L (22-30); Chloride 106 mmol/L (98-107); Estimated Glomerular Filt Rate > 60; Glucose 106 mg/dL (65-110); Potassium 3.7 mmol/L (3.4-5.0); Sodium 135 mmol/L (137-145); Total Protein 6.7 g/dL (6.3-8.2)
[2024-10-11 20:08] LABS: Uric Acid 4.5 mg/dL (2.5-7.5)
[2024-10-11 20:41] LABS: HIV 1/2 Ab P24 Ag Result Negative (Negative)
--- NOTE | 2024-10-11 20:43 | WPDOBADMIT ---
Obstetrics - Admit Note Admission Note: record reviewed. No pertinent additions to the history and/or any subsequent changes in the physical findings that are not consistent with the expected course of the were found. Additions to the history and/or subsequent changes in the physical findings follow. Admit for SROM, anticipate vaginal delivery
[2024-10-11 20:48] LABS: Syphilis IgG/IgM Antibody Non-Reactive (Nonreactive)
--- NOTE | 2024-10-11 21:54 | PM.OBPNLAB ---
Pain Control Date/time seen: 10/11/24 21:54 Comments: cnm at bs, rn noted a forebag, AROM clear, odorless fluid, anticipate vaginal delivery SVE /-2
[2024-10-12] VITALS (16 sets, daily range): BP systolic 99–149; BP diastolic 33–94; PULSE 71–114; RESP 16; TEMP 36.1–36.9; O2SAT 99–100
[2024-10-12] MEDS: OXYTOCIN 30 UNITS/NS 500 ML 30 UNITS/500 ML BAG IV CONT (00:16)
[2024-10-12] MEDS: LACTATED RINGERS 1,000 ML 125 ML IV CONT (00:16)
[2024-10-12] MEDS: fentaNYL CITRATE INJ (*CRX) 100 MCG/2 ML VIAL IV PUSH ×2 (01:51→03:50)
--- NOTE | 2024-10-12 03:56 | PM.OBPRVD ---
OB - Vaginal Delivery Note Procedure Delivery date: 10/12/24 Induction method: None Delivery augmentation: Rupture of Membranes and Pitocin Delivery monitor: External FHT and External Uterine Route of delivery: Laceration Description: None Specimen: No Quantitative Blood Loss (ml): 300 Anesthesia type: Epidural Disposition: Floor Complications: No immediate complications Baby Date of : 10/12/24 Time of : 03:44 Gestational Age by Date: 39 gender: Female Weight (pounds): 7 Weight (ounces): 2 presentation: vertex position: Left Occiput Anterior Placenta delivery description: Spontaneous Cord Vessel Description: Clamped/Cut and Delayed Cord Clamping score one minute: 8 score five minutes: 9
[2024-10-12] MEDS: OXYTOCIN 30 UNITS/NS 500 ML 30 UNITS/500 ML BAG 125 UNITS IV CONT (04:06)
[2024-10-12] MEDS: BENZOCAINE 20% AER SPR (*SP) 56 GM CAN 1 SPRAY TOPICAL (04:43)
[2024-10-12] MEDS: WITCH HAZEL 40 PADS 1 PAD TOPICAL (04:44)
[2024-10-12] MEDS: ACETAMINOPHEN 325 MG TABLET 650 MG PO ×2 (05:15→11:08)
--- NOTE | 2024-10-12 06:17 | OBPPTRN ---
Patient transferred to post room #283 via wheelchair. Support person present. Oriented to unit, room, information board, rooming in, admission packet and security measures. Patient verbalizes understanding.
[2024-10-12] MEDS: MULTIVIT/MIN/PREN/FOL AC/IRON TABLET 1 TAB PO (09:18)
--- NOTE | 2024-10-12 10:15 | PC.NURSE ---
Introductions were made, then consulted with patient to assess needs related to . Discussed with mother her plans to feed her and the experience so far. Encouraged mother to express any questions or concerns she has regarding feedings. Advised her to call out for a latch check or if she needs assistance waking or positioning baby. Mother states that she has fed a few times already and that it is going great. Resources provided for inpatient and outpatient services with the feeding sheet, mom/baby guide, and name/number written on the communication board. Mother voiced understanding of information and will call if there is a request for assistance. Reported to the Primary RN?
[2024-10-12] MEDS: IBUPROFEN 600 MG TABLET PO (21:36)
[2024-10-13 04:52] LABS: Hematocrit 32.8 % (37.0-47.0); Hemoglobin 10.5 g/dL (12.0-15.0)
[2024-10-13] MEDS: IBUPROFEN 600 MG TABLET PO (05:14)
--- NOTE | 2024-10-13 06:26 | P.PNOB_ITS ---
OB - PN: Subj Subjective Date/time seen: 10/13/24 06:26 Interval history: PPD#1 Doing well, mild abdominal and back pain, mild nausea Voiding without issue Tolerating general diet OB - PN: Obj Data Labs 10/13/24 04:25 10/11/24 19:32 Labs: Laboratory Results - last 24 hr 10/13/24 04:25 Hgb 10.5 L Hct 32.8 L OB - PN A/P Assessment and Plan (1) (spontaneous vaginal delivery): Code(s): O80 - Encounter for full-term uncomplicated delivery Status: Acute Plan day: 1 Plan: routine care Comments: abdominal pain likely 2/2 labor and cramping, will monitor today Time Spent With Patient Time: Total time spent is greater than 50% in coordination of care (as documented) at patient's floor/unit and/or counseling patient: Review of Systems 2 Review of Systems: All systems reviewed & are unremarkable except as noted in HPI and below Exam 2 Const: General: comfortable and no acute distress O rientation/consciousness: patient oriented x3 Resp: Effort & Inspection: normal respiratory effort GI: GI Palp: Yes Soft to palpation and No Tenderness to palpation present (GI)
--- NOTE | 2024-10-13 06:29 | P.DS_ITS ---
DS: Admitting Diagnosis Discharge Date 10/13/24 Admitting Diagnosis SROM DS: Discharge Diagnosis Discharge Diagnosis (1) (spontaneous vaginal delivery): Code(s): O80 - Encounter for full-term uncomplicated delivery Status: Acute OB - DS: Summary OB Procedures : None OB Procedures Intrapartum: Spontaneous Vag Delivery OB Procedures: : None Peripartum Data Laceration Description: None Time Spent with Patient Time attestation: Total time spent providing and/or coordinating discharge services: DS: Data Data Completed and Pending Labs on day of discharge: Labs from last 24 hours 10/13/24 04:25 Hgb 10.5 L Hct 32.8 L Discharge Plan Discharge Attending physician on discharge: Flakito Martins Consulting providers: Pearl Baird Discharging Clinician: Flakito Martins Patient Disposition: Home Activity: may shower, as tolerated and pelvic rest Diet: as tolerated Patient Instructions: Antibiotic Form Patient Language: Vietnamese Stand Alone Forms: General Discharge Information Follow-up/Referrals: Pearl Baird, CNM [Certified Nurse Medical Transcriber] - 4 Weeks Discharge Medications: New docusate sodium 100 mg Capsule 100 mg PO BID PRN (Reason: Constipation) Qty: 60 0RF ibuprofen 600 mg Tablet 600 mg PO Q6H PRN (Reason: Cramping) Qty: 30 0RF Continued vit-iron fum-folic ac [ Vitamin with Minerals] 28 mg iron- 800 mcg Tablet 1 tablet PO DAILY Date of admission: 10/11/24 17:48 Primary Care Provider: MalkaAn Admitting Provider: Jean Marie Hinojosa Attending physician on admission: Jean Marie Hinojosa Condition: Stable
[2024-10-13 08:35] VITALS: BP 122/87; PULSE 92; RESP 18; TEMP 36.5; O2SAT 100
--- NOTE | 2024-10-13 09:00 | PC.NURSE ---
0900: Met with mom to discuss discharge. She feels that baby hasn't been 'getting anything' at breast and would like to start supplementing. Baby cluster fed last night and patient was educated on normal behavior in the immediate period. She brought her own goat's milk formula and requested water to mix it. Patient informed that we do not have any water for mixing formula. She seems upset that we are unable to supply this for her. Baby is currently latched and nursing and appears to have a decent latch with a swallow noted. Encouraged mom to listen for swallows as a sign that baby is transferring milk at the breast. She declines needing a WIC referral and she states that she has a breast pump for home use. Patient has the mom/baby guide for reference and the office number for further assistance. A feeding plan was added to baby's discharge. Mother denies having any other questions. RN updated.
[2024-10-13] MEDS: ACETAMINOPHEN 325 MG TABLET 650 MG PO (10:04)
[2024-10-13] MEDS: DOCUSATE SODIUM 100 MG CAPSULE PO (10:05)
[2024-10-13] MEDS: MULTIVIT/MIN/PREN/FOL AC/IRON TABLET 1 TAB PO (10:05)
--- NOTE | 2024-10-14 11:29 | PC.NURSE ---
Sarai called Caro earlier today re: missed follow up appt. and was unable to leave a message on her cell phone, Caro called back a few minutes ago and stated that she had been up most of the night and slept through her alarm. I inquired as to how she and the baby are doing, discussed some of her issues with latching and pumping she has not made an appt. for the baby with the Spareribs Trimmer yet, discussed the importance of making this appt. and telling the Spareribs Trimmer that the baby did not pass the hearing screening so that repeat screening can be done Caro voiced understanding and states that she will do so
== END 2024-10-13 12:04 | disposition home or self-care (01) | DRG 560 ==
LOC: ANHOB2 10-13 06:29 → ANHLDR 10-14 09:18 → ANHOB2 10-14 09:18
PROVIDERS: Advanced Practice Midwife; Obstetrics & Gynecology; Admitting Provider Obstetrics & Gynecology; PCP Physician Assistant; Visit Provider Obstetrics & Gynecology
DX: O80 Encounter for full-term uncomplicated delivery (principal); Z37.0 Single live birth; Z3A.39 39 weeks gestation of pregnancy
CPT/HCPCS: 36415; 80053; 84550; 85014; 85018; 85025; 86593; 86703; 86850; 86900; 86901; A9270; G0432; J2590; J3010; J7120